=== PATIENT | female | born 1935 | race Caucasian/White ===

== ENCOUNTER 2017-08-31 07:02 | Inpatient (IN) ==
[2017-08-31] MEDS ORDERED: Morphine Sulfate Inj 8 MG/ML Vial IV.PUSH ONE (07:20)
--- NOTE | 2017-08-31 07:42 | ED ---
HPI General Chief complaint: Abdominal Pain Stated complaint: Abdominal Pain Time Seen by Provider: 08/31/17 07:16 History of Present Illness HPI narrative: Patient 82-year-old female presents emergency department for evaluation of abdominal pain and distention for the past week gradually worsening after she had surgery on her kidneys. According to our records she had a nephrostomy drain by interventional radiology on 08/26, she had been seen here for several months prior to that. Patient states the pain and distention have been gradually worsening since that surgery. She states she is also not had a bowel movement in several days. No blood in the stool, she states that her nephrostomy tube is not draining anymore. Related Data Home Medications Medication Instructions Recorded Confirmed alprazolam [Xanax] 0.25 mg PO QID 08/26/17 08/31/17 buspirone 15 mg PO BID 08/26/17 08/31/17 calcium carbonate [Calcium 600] 600 mg PO BID 08/26/17 08/31/17 cholecalciferol (vitamin D3) 2,000 unit PO DAILY 08/26/17 08/31/17 [Vitamin D3] cranberry extract 500 mg PO BID 08/26/17 08/31/17 cyanocobalamin-cobamamide [B12] 1,000 mg SUBLINGUAL DAILY 08/26/17 08/31/17 ferrous sulfate [iron] 65 mg PO DAILY 08/26/17 08/31/17 losartan 50 mg PO DAILY 08/26/17 08/31/17 lubiprostone [Amitiza] 8 mcg PO BID 08/26/17 08/31/17 metoprolol succinate 50 mg PO DAILY 08/26/17 08/31/17 mirabegron [Myrbetriq] 25 mg PO DAILY 08/26/17 08/31/17 omega 3-vpu-uxs-fish oil [[place]-3] 500 mg PO DAILY 08/26/17 08/31/17 omeprazole 40 mg PO DAILY 08/26/17 08/31/17 oxycodone 10 mg PO Q4-6H PRN 08/26/17 08/31/17 rivaroxaban [Xarelto] 20 mg PO DAILY 08/26/17 08/31/17 rosuvastatin 20 mg PO DAILY 08/26/17 08/31/17 Allergies Allergy/AdvReac Type Severity Reaction Status Date / Time aspirin Allergy Severe GI BLEED Verified 08/31/17 07:23 Review of Systems Except as stated in HPI: all other systems reviewed are negative [facility] Medical History Medical History Spinal stenosis (Acute) Benign breast lumps (Acute) Normal colonoscopy (Acute) Sleep apnea (Chronic) Chronic pain (Acute) Osteoporosis (Acute) Arthritis (Acute) Anxiety (Acute) Decreased vision (Acute) History of frequent urinary tract infections (Acute) GERD (gastroesophageal reflux disease) (Acute) Inguinal hernia (Acute) Obstructive sleep apnea on CPAP (Acute) Hypertension (Chronic) Atrial fibrillation (Chronic) History of blood product transfusion (Acute) High cholesterol (Acute) Benign familial tremor (Acute) Degenerative disc disease (Acute) Surgical History Surgical History S/P ablation of atrial fibrillation (Acute) History of total right knee replacement (TKR) (Acute) Lens replaced (Acute) History of hemorrhoidectomy (Acute) Shoulder joint replacement status (Acute) History of back surgery (Acute) Social History Social History Substance History: No History of Abuse Second Hand Smoke Exposure: No Smoking Status: Never smoker How Often Do You Have a Drink Containing Alcohol: Monthly or less Recent Travel in [facility] within the Last 8 Weeks: No Recent Out of Country Travel within the Last 8 Weeks: No Immunization History Tetanus Immunization: <5 Years Hx Influenza Vaccine This Season: Yes Exam Narrative Exam Narrative: GENERAL: Well-developed well-nourished, appears very uncomfortable. SKIN: Focused skin assessment warm/dry. HEAD: Atraumatic. Normocephalic. EYES: Pupils equal and round. No scleral icterus. No injection or drainage. ENT: No nasal bleeding or discharge. Mucous membranes pink and moist. NECK: Trachea midline. No JVD. CARDIOVASCULAR: Regular rate and rhythm. No murmur appreciated. RESPIRATORY: No accessory muscle use. Clear to auscultation. Breath sounds equal bilaterally. GASTROINTESTINAL: Right-sided nephrostomy tube site is clean dry and intact, minimal bloody drainage, abdomen is significantly distended consistent with a third trimester . Tympanic to percussion, decreased bowel sounds. MUSCULOSKELETAL: No obvious deformities. No clubbing. No cyanosis. No edema. NEUROLOGICAL: Awake and alert. No obvious cranial nerve deficits. Motor grossly within normal limits. Normal speech. PSYCHIATRIC: Appropriate mood and affect; insight and judgment normal. Course Initial Documented Vital Signs Temperature 98.2 F 08/31/17 07:18 Pulse Rate 103 H 08/31/17 07:18 Respiratory Rate 18 08/31/17 07:18 Blood Pressure 190/102 H 08/31/17 07:18 Pulse Oximetry 98 08/31/17 07:18 Last Documented Vital Signs Temperature 98.2 F 08/31/17 07:24 Pulse Rate 100 H 08/31/17 16:00 Respiratory Rate 18 08/31/17 16:00 Blood Pressure 158/84 H 08/31/17 16:00 Pulse Oximetry 100 08/31/17 16:00 Critical Care Time Critical Care Time: Yes Total Critical Care Time: 35 Attestation: Aggregate critical care time was 35 minutes. Time to perform other separately billable procedures was not included in the critical care time. My time did not include minutes spent treating any other patients simultaneously or on activities that did not directly contribute to the patient's treatment. The services I provided to this patient were to treat and/or prevent clinically significant deterioration that could result in: , disability, organ failure I provided critical care services requiring my management, as noted below: Chart data review, documentation time, medication orders and management, vital sign assessments/reviewing monitor data, ordering and reviewing lab tests, ordering and interpreting/reviewing x-rays and diagnostic studies, care of the patient and discussion of the patient with the admitting physicians. Medical Decision Making MDM Narrative Medical decision making narrative: Patient room to the emergency department, appears fairly uncomfortable and ill. CT scans concerning for intrarenal hematoma probably related the procedure and Xarelto use, there is also what appears to be an ileus, there is no stool in the rectum, trace occult positive but no gross blood and no gross melena. Patient was given morphine 6 mg IV, Dilaudid 0.5 mg IV. The patient was discussed at length with Dr. Jeffers is regarding her CAT scan results, we think that the bleeding is fairly well controlled at this point as it is in an encapsulated organ however the patient does have some blood output from the urostomy which is minimal. A Villa catheter was inserted and shows only blood-tinged urine, NG was inserted which had almost a liter of clear fluid output. Dr. Jeffers I had an extensive conversation about the possibility of interventional radiology procedure to embolize the hematoma but given the patient is hypertensive we think it might be better to Allow the patient to be without Xarelto for a day or 2 prior to her procedure and close observation and trending of her H&H is rather than rushing off to her procedure while she is anticoagulated. First this was discussed with Dr. Lincoln and I have asked for his input from the intensive care standpoint and after examining the patient has agreed the patient is stable for the floor. She does meet SIRS criteria and possible urinary tract infection or postoperative infection the patient was given a dose of Zosyn. Patient was ultimately discussed with Dr. Dwain murillo and will be admitted to Dr. Rasmussen. Differential Diagnosis Differential Diagnosis: Nephrostomy tube malfunction, uro-peritoneum, hemoperitoneum, obstruction, ileus Lab Data Result diagrams: 08/31/17 18:06 08/31/17 07:31 Lab Results 08/31/17 08/31/17 08/31/17 Range/Units 07:31 07:31 07:31 WBC 11.8 H (4.0-11.0) th/mm3 RBC 3.12 L (4.00-5.30) mil/mm3 Hgb 10.0 L (11.6-15.3) gm/dL Hct 29.1 L (35.0-46.0) % MCV 93.3 (80.0-100.0) fL MCH 32.2 (27.0-34.0) pg MCHC 34.5 (32.0-36.0) % RDW 14.8 (11.6-17.2) % Plt Count 181 (150-450) th/mm3 MPV 9.4 (7.0-11.0) fL Neut % (Auto) 91.7 H (16.0-70.0) % Lymph % (Auto) 3.5 L (9.0-44.0) % [place] % (Auto) 4.7 (0.0-8.0) % Eos % (Auto) 0.0 (0.0-4.0) % Baso % (Auto) 0.1 (0.0-2.0) % Neut # (Auto) 10.8 H (1.8-7.7) th/mm3 Lymph # (Auto) 0.4 L (1.0-4.8) th/mm3 [place] # (Auto) 0.6 (0.0-0.9) th/mm3 Eos # (Auto) 0.0 (0.0-0.4) th/mm3 Baso # (Auto) 0.0 (0.0-0.2) th/mm3 WBC Differential . Differential Comment Auto diff final Sodium 130 L (136-145) meq/L Potassium 4.0 (3.5-5.1) meq/L Chloride 97 L (98-107) meq/L Carbon Dioxide 21.6 (21.0-32.0) meq/L Anion Gap 11 (5-15) meq/L BUN 14 (7-18) mg/dL Creatinine 1.13 H (0.50-1.00) mg/dL Estimated GFR 46 L (>89) mL/min Random Glucose 171 H (74-106) mg/dL Lactic Acid 1.3 (0.4-2.0) mmol/L Calcium 8.7 (8.5-10.1) mg/dL Total Bilirubin 0.5 (0.2-1.0) mg/dL AST 15 (15-37) U/L ALT 19 (10-53) U/L Alkaline Phosphatase 69 (45-117) U/L Total Protein 8.0 (6.4-8.2) g/dL Albumin 4.0 (3.4-5.0) g/dL Lipase 52 L (73-393) U/L Urine Color (Yellw/Straw) Urine Clarity (Clear) Urine pH (5.0-8.5) Ur Specific [place] (1.002-1.035) Urine Protein (Neg-Trace) mg/dL Urine Glucose (UA) (Negative) mg/dL Urine Ketones (Negative) mg/dL Urine Occult Blood (Negative) Urine Nitrate (Negative) Urine Bilirubin (Negative) Urine Urobilinogen (Less than 2) mg/dL Ur Leukocyte Esterase (Negative) Urine RBC (0-3) /hpf Urine WBC (0-5) /hpf Ur Squamous Epith Cells (0-5) /hpf Micro UA Comment Urine Culture Comments Blood Type Antibody Screen MTS Gel Crossmatch 08/31/17 08/31/17 08/31/17 Range/Units 09:33 10:10 10:56 WBC (4.0-11.0) th/mm3 RBC (4.00-5.30) mil/mm3 Hgb (11.6-15.3) gm/dL Hct (35.0-46.0) % MCV (80.0-100.0) fL MCH (27.0-34.0) pg MCHC (32.0-36.0) % RDW (11.6-17.2) % Plt Count (150-450) th/mm3 MPV (7.0-11.0) fL Neut % (Auto) (16.0-70.0) % Lymph % (Auto) (9.0-44.0) % [place] % (Auto) (0.0-8.0) % Eos % (Auto) (0.0-4.0) % Baso % (Auto) (0.0-2.0) % Neut # (Auto) (1.8-7.7) th/mm3 Lymph # (Auto) (1.0-4.8) th/mm3 [place] # (Auto) (0.0-0.9) th/mm3 Eos # (Auto) (0.0-0.4) th/mm3 Baso # (Auto) (0.0-0.2) th/mm3 WBC Differential Differential Comment Sodium (136-145) meq/L Potassium (3.5-5.1) meq/L Chloride (98-107) meq/L Carbon Dioxide (21.0-32.0) meq/L Anion Gap (5-15) meq/L BUN (7-18) mg/dL Creatinine (0.50-1.00) mg/dL Estimated GFR (>89) mL/min Random Glucose (74-106) mg/dL Lactic Acid (0.4-2.0) mmol/L Calcium (8.5-10.1) mg/dL Total Bilirubin (0.2-1.0) mg/dL AST (15-37) U/L ALT (10-53) U/L Alkaline Phosphatase (45-117) U/L Total Protein (6.4-8.2) g/dL Albumin (3.4-5.0) g/dL Lipase (73-393) U/L Urine Color Colorless (Yellw/Straw) Urine Clarity Clear (Clear) Urine pH 7.0 (5.0-8.5) Ur Specific [place] 1.016 (1.002-1.035) Urine Protein Negative (Neg-Trace) mg/dL Urine Glucose (UA) 50 (Negative) mg/dL Urine Ketones Negative (Negative) mg/dL Urine Occult Blood Large H (Negative) Urine Nitrate Negative (Negative) Urine Bilirubin Negative (Negative) Urine Urobilinogen Less than 2 (Less than 2) mg/dL Ur Leukocyte Esterase Negative (Negative) Urine RBC 78 H (0-3) /hpf Urine WBC 7 H (0-5) /hpf Ur Squamous Epith Cells <1 (0-5) /hpf Micro UA Comment Culture not ind Urine Culture Comments Culture not ind Blood Type A Positive Antibody Screen Negative MTS Gel Crossmatch See Detail 08/31/17 Range/Units 18:06 WBC (4.0-11.0) th/mm3 RBC (4.00-5.30) mil/mm3 Hgb 10.4 L (11.6-15.3) gm/dL Hct 30.7 L (35.0-46.0) % MCV (80.0-100.0) fL MCH (27.0-34.0) pg MCHC (32.0-36.0) % RDW (11.6-17.2) % Plt Count (150-450) th/mm3 MPV (7.0-11.0) fL Neut % (Auto) (16.0-70.0) % Lymph % (Auto) (9.0-44.0) % [place] % (Auto) (0.0-8.0) % Eos % (Auto) (0.0-4.0) % Baso % (Auto) (0.0-2.0) % Neut # (Auto) (1.8-7.7) th/mm3 Lymph # (Auto) (1.0-4.8) th/mm3 [place] # (Auto) (0.0-0.9) th/mm3 Eos # (Auto) (0.0-0.4) th/mm3 Baso # (Auto) (0.0-0.2) th/mm3 WBC Differential Differential Comment Sodium (136-145) meq/L Potassium (3.5-5.1) meq/L Chloride (98-107) meq/L Carbon Dioxide (21.0-32.0) meq/L Anion Gap (5-15) meq/L BUN (7-18) mg/dL Creatinine (0.50-1.00) mg/dL Estimated GFR (>89) mL/min Random Glucose (74-106) mg/dL Lactic Acid (0.4-2.0) mmol/L Calcium (8.5-10.1) mg/dL Total Bilirubin (0.2-1.0) mg/dL AST (15-37) U/L ALT (10-53) U/L Alkaline Phosphatase (45-117) U/L Total Protein (6.4-8.2) g/dL Albumin (3.4-5.0) g/dL Lipase (73-393) U/L Urine Color ([place]ell[place]/Straw) Urine Clarity (Clear) Urine pH (5.0-8.5) Ur Specific [place] (1.002-1.035) Urine Protein (Neg-Trace) mg/dL Urine Glucose (UA) (Negative) mg/dL Urine Ketones (Negative) mg/dL Urine Occult Blood (Negative) Urine Nitrate (Negative) Urine Bilirubin (Negative) Urine Urobilinogen (Less than 2) mg/dL Ur Leukocyte Esterase (Negative) Urine RBC (0-3) /hpf Urine WBC (0-5) /hpf Ur Squamous Epith Cells (0-5) /hpf Micro UA Comment Urine Culture Comments Blood Type Antibody Screen MTS Gel Crossmatch Imaging Data Radiologist's impression: Abdomen/Pelvis CT 08/31/17 07:20 CONCLUSION: 1. 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 2. There is nephrostomy tip is in the right LX towards the anterior portion. 3. Stable left adrenal adenoma. 4. Significant dilatation of the common bile duct and mild biliary ductal dilatation left hepatic lobe present on the prior study from 2014, however, bile duct is more dilated since that time. Etiology is not evident. Discharge Plan Discharge Disposition Patient Disposition: 30 Still Patient Discharge Condition Condition: Fair Discharge Details Diagnosis: Adynamic ileus, SIRS (systemic inflammatory response syndrome) Physicians Team ED Provider: Efe Uribe Primary Care Provider: Sukhwinder Kruger Attending Provider: Elen Rasmussen Other Providers: Martin Minaya Status ED Status: Left Department Discharge Information Discharge Date/Time: 08/31/17 19:39
[2017-08-31 07:54] LABS: Baso % (Auto) 0.1 % (0.0-2.0); Hematocrit 29.1 % (35.0-46.0); Lymph # (Auto) 0.4 th/mm3 (1.0-4.8); Lymph % (Auto) 3.5 % (9.0-44.0); Mean Corpuscular HGB Conc 34.5 % (32.0-36.0); Mean Corpuscular Hemoglobin 32.2 pg (27.0-34.0); Mean Corpuscular Volume 93.3 fL (80.0-100.0); Mean Platelet Volume 9.4 fL (7.0-11.0); Mono # (Auto) 0.6 th/mm3 (0.0-0.9); Mono % (Auto) 4.7 % (0.0-8.0); Neut # (Auto) 10.8 th/mm3 (1.8-7.7); Neut % (Auto) 91.7 % (16.0-70.0); Platelet Count 181 th/mm3 (150-450); Red Blood Count 3.12 mil/mm3 (4.00-5.30); Red Cell Distribution Width 14.8 % (11.6-17.2); White Blood Count 11.8 th/mm3 (4.0-11.0)
[2017-08-31 08:18] LABS: Anion Gap 11 meq/L (5-15); Aspartate Aminotransferase 15 U/L (15-37); Blood Urea Nitrogen 14 mg/dL (7-18); Calcium 8.7 mg/dL (8.5-10.1); Carbon Dioxide 21.6 meq/L (21.0-32.0); Chloride 97 meq/L (98-107); Glomerular Filtration Rate 46 mL/min (>89); Glucose,Random 171 mg/dL (74-106); Lipase 52 U/L (73-393); Sodium 130 meq/L (136-145)
[2017-08-31 08:20] LABS: Alanine Aminotransferase 19 U/L (10-53)
[2017-08-31 08:22] LABS: Alkaline Phosphatase 69 U/L (45-117)
--- NOTE | 2017-08-31 09:24 | CT ---
EXAM DATE: 08/31/2017 9:01 AM EDT AGE/SEX: 82 years / Female INDICATIONS: Right sided abdominal pain. CLINICAL DATA: This is the patient's initial encounter. Patient reports that signs and symptoms have been present for 1 week and indicates a pain score of 8/10. MEDICAL/SURGICAL HISTORY: Cardiovascular disease. Gastroesophageal reflux disease. Hypertensi on. Hemorrhoidectomy. Hernia repair Right nephrostomy tube 08/26 ORAL CONTRAST: No oral contrast ingested. RADIATION DOSE: 8.30 CTDI (mGy) COMPARISON: No prior exams available for comparison. TECHNIQUE: Multiple contiguous axial images were obtained through the abdomen and pelvis following b olus infusion of 94 ml Omnipaque 350 (iohexol) nonionic water-soluble contrast as a single exam dos e. No oral contrast ingested. Using automated exposure control and adjustment of the mA and/or kV ac cording to patient size, radiation dose was kept as low as reasonably achievable to obtain optimal di agnostic quality images. DICOM format image data is available electronically for review and comparis on. FINDINGS: Abdomen CT: The liver, spleen, pancreas, left kidney, right adrenal are unremarkable. There is significant hydron ephrotic sac in the right kidney enlarged since the prior exam from 08/26/2017 and demonstrates high d ensity blood within it. Percutaneous nephrostomy has been placed in the interim with tip in the anter ior portion of the right renal calyx superior pole. There is dilatation of the left hepatic biliary s ystem not significantly changed since 2014, however, bile duct measures 1.8 cm it measured 1 cm on e study from 2014. The exact etiology for this is not evident based on this examination. Approximate 2.7 cm left adrenal mass is present and probably an adenoma present on the prior study from 2014 at [facility] time it measured 2.6 cm not significantly changed. There is slight dilatation of loops of large bowel particularly transverse colon measures 6.4 cm due to some degree of colonic ileus. There is mod erate amount of stool throughout the colon. There is no evidence for any appreciable pathological opal nopathy, free fluid, or bowel obstruction. Slight scarring and/or atelectasis is seen in the lingula and left lower lobe. Pelvic CT: There is no evidence for mass, abscess formation, or any significant adenopathy within the pelvis. CONCLUSION: 1. Worsening hydronephrotic sac in the right kidney with significant dilatation of the right renal p hillary and hemorrhage within it since the prior study from 08/26/2017. 2. There is nephrostomy tip is in the right LX towards the anterior portion. 3. Stable left adrenal adenoma. 4. Significant dilatation of the common bile duct and mild biliary ductal dilatation left hepatic lo be present on the prior study from 2014, however, bile duct is more dilated since that time. Etiology is not evident. Electronically signed by: Dina Torres MD 08/31/2017 9:23 AM EDT
[2017-08-31] MEDS ORDERED: HYDROmorphone PF Inj 2 MG/ML Vial IV.PUSH ONE (09:34)
[2017-08-31 11:32] LABS: Bilirubin,Urine Negative (Negative); Clarity,Urine Clear (Clear); Color,Urine Colorless (Yellw/Straw); Glucose,Urine (UA) 50 mg/dL (Negative); Leukocyte Esterase,Urine Negative (Negative); Nitrite,Urine Negative (Negative); Specific Gravity,Urine 1.016 (1.002-1.035); Squamous Epithelial Cell,Urine <1 /hpf (0-5)
--- NOTE | 2017-08-31 11:45 | P.CONCC ---
History of Present Illness Service: Critical Care Medicine Consult date: 08/31/17 Requesting Physician: Efe Uribe Reason for Consult: evaluation of patient's clinical status Primary Care Provider: Sukhwinder Kruger MD Family Provider: Sukhwinder Kruger MD Chief Complaint: abdominal pain History of Present Illness: I was called by the ER physician to evaluate a patient for necessity for ICU services. briefly, this is an 82yF who was seen on 08/26 for hydronephrosis and is now s/p right perc nephrostomy tube by IR. she represents with a few day history of nausea and abdominal pain. CT scan is significant for a fluid collection in the right renal collecting system which the ER physician and IR hypothesize could be a hematoma. This does appear to cause a local inflammatory response and evidence of a significant non-obstructive ileus. patient denied bloody emesis, chest pain, sob, or other symptoms. hemodynamically stable on room air. At my request, NGT was placed and 500cc clear/light-brown fluid was removed. Repeat abdominal exam after NGT decompression demonstrates much improved abdominal distension and soft abdomen. patient reports mild improvements in fullness. ROS otherwise negative. 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 - Medical History Medical History: Medical History (Last Reviewed 08/31/17 @ 07:21 by Brooke Ricci) Spinal stenosis (Acute) Benign breast lumps (Acute) Normal colonoscopy (Acute) Sleep apnea (Acute) Chronic pain (Acute) Osteoporosis (Acute) Arthritis (Acute) Anxiety (Acute) Decreased vision (Acute) History of frequent urinary tract infections (Acute) GERD (gastroesophageal reflux disease) (Acute) Inguinal hernia (Acute) Obstructive sleep apnea on CPAP (Acute) Hypertension (Acute) Atrial fibrillation (Acute) History of blood product transfusion (Acute) High cholesterol (Acute) - Surgical History Surgical History: Surgical History (Last Reviewed 08/31/17 @ 07:21 by Brooke Ricci) S/P ablation of atrial fibrillation (Acute) History of total right knee replacement (TKR) (Acute) Lens replaced (Acute) History of hemorrhoidectomy (Acute) Shoulder joint replacement status (Acute) History of back surgery (Acute) - Tobacco History Second Hand Smoke Exposure: No Tobacco Use In Past 30 Days: No Smoking Status: Never smoker - Alcohol History How Often Do You Have a Drink Containing Alcohol: Monthly or less - Substance Use History Substance History: No History of Abuse - Travel History Recent Travel in the [place] Within the Last 8 Weeks: No Recent Travel Out of the Country Within the Last 8 Weeks: No - Immunization History Tetanus Immunization: <5 Years Hx Influenza Vaccine This Season: Yes Medications and Allergies Active Medications: Active Medications Sodium Chloride (Ns Flush) 2 ml IV.FLUSH PRN PRN PRN Reason: FLUSH AFTER USING IV ACCESS Allergies Allergy/AdvReac Type Severity Reaction Status Date / Time aspirin Allergy Severe GI BLEED Verified 08/31/17 07:23 Home Medications Medication Instructions Recorded Confirmed Type alprazolam [Xanax] 0.25 mg PO QID 08/26/17 08/31/17 History buspirone 15 mg PO BID 08/26/17 08/31/17 History calcium carbonate [Calcium 600] 600 mg PO BID 08/26/17 08/31/17 History cholecalciferol (vitamin D3) 2,000 unit PO DAILY 08/26/17 08/31/17 History [Vitamin D3] cranberry extract 500 mg PO BID 08/26/17 08/31/17 History cyanocobalamin-cobamamide [B12] 1,000 mg SUBLINGUAL DAILY 08/26/17 08/31/17 History ferrous sulfate [iron] 65 mg PO DAILY 08/26/17 08/31/17 History losartan 50 mg PO DAILY 08/26/17 08/31/17 History lubiprostone [Amitiza] 8 mcg PO BID 08/26/17 08/31/17 History metoprolol succinate 50 mg PO DAILY 08/26/17 08/31/17 History mirabegron [Myrbetriq] 25 mg PO DAILY 08/26/17 08/31/17 History omega 9-eab-azv-fish oil [[place]-3] 500 mg PO DAILY 08/26/17 08/31/17 History omeprazole 40 mg PO DAILY 08/26/17 08/31/17 History oxycodone 10 mg PO Q4-6H PRN 08/26/17 08/31/17 History rivaroxaban [Xarelto] 20 mg PO DAILY 08/26/17 08/31/17 History rosuvastatin 20 mg PO DAILY 08/26/17 08/31/17 History Physical Exam Vital signs: Vital Signs 08/31/17 07:18 08/31/17 07:24 08/31/17 07:27 Temperature 36.8 C 36.8 C Pulse Rate 103 H 103 H Respiratory Rate 18 18 Blood Pressure 190/102 H 190/102 H Pulse Oximetry 98 96 96 08/31/17 11:00 Temperature Pulse Rate 112 H Respiratory Rate 18 Blood Pressure 162/87 H Pulse Oximetry 99 Intake & Output 08/30/17 08/31/17 08/31/17 18:59 06:59 18:59 Weight 86.183 kg Narrative: gen: elderly female, lying in bed, in no acute distress. heent: nc. at. perrl. mmm. neck: no jvd. trachea midline. chest: unlabored. on room air. cv: normal rate, regular rhythm. sinus. abd: soft, initially severely distended and now mild-moderately distended. mild tenderness to palpation diffusely. no guarding or rebound. extr: 1+ pitting edema of the lower extremities. distal pulses 2+. extremities are warm and well-perfused back: right nephrostomy tube in place with minimal urosanguinous output. : benítez in place with mostly yellow and only slightly blood tinged urine. neuro: RASS 0. GCS 15. follows commands. no focal deficits. - Urinary Catheter Management Indwelling Urethral Catheter Cath placed during this visit: yes Reason for continuing: Acute urinary retention Insertion date: 08/31/17 Insertion time: 11:00 Assessment and Plan - Assessment and Plan Plan: Assessment: 82yF with right-sided hydronephrosis and now with abdominal pain most likely secondary to acute non-obstructive ileus and right nephric hematoma. Active Problems: Non-obstructive Ileus Abdominal Distension Abdominal pain Right renal hematoma Right hydronephrosis Recommendations: - does not meet ICU criteria at this time. no hemodynamic instability. no respiratory compromise with ileus. abdominal distension improving with NGT decompression. - agree with managing conservatively. - management and possible drainage of hematoma per IR. - NGT decompression - would manage ileus conservatively as I do not think it will resolve until underlying renal pathology is resolved. - recommend ivf as patient may become dehydrated given ileus and NGT output. - agree with iv pain meds - agree with NPO status. would recommend admission to telemetry monitored floor bed under hospitalist services. Please re-consult critical care medicine as needed. we will sign off at this time. Discussed Condition With: Dr. Uribe
[2017-08-31] MEDS ORDERED: Piperacil/Tazo 4.5 GM Premix 4.5 GM/100 ML BAG IV.SIG ONE (11:58)
--- NOTE | 2017-08-31 12:38 | P.HPFP ---
History of Present Illness Primary Care Physician: Sukhwinder Kruger MD Chief Complaint: abdominal pain History of Present Illness: Patient is a 82-year-old female with past medical history of A. 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 Patient reports that pain has been constant since urology procedure however is gotten progressively worse. She describes pain as sharp initially reading 10/10, currently 9/10. She took oxycodone without any significant relief. Patient also reports worsening of hematuria from nephrostomy bag, blood became darker in color although no blood clots were noted in the urine. Patient reports that last bowel movement was 4 days ago. Endorses chills, nausea, dizziness, increase urinary frequency and weakness. Denies fever, dysuria, foul smelling urine, SOB, CP, palpitations, vomiting, blood in stool. At baseline patient ambulates with a cane. Patient was scheduled to follow-up with her urologist today for reevaluation of nephrostomy tube placement because she was told the procedure was not successful. - Diagnosis (1) Ureteral obstruction, right (2) Anemia (3) Ileus (4) Atrial fibrillation (5) Hypertension (6) Sleep apnea (7) Arthritis (8) Anxiety (9) GERD (gastroesophageal reflux disease) (10) Nutrition, metabolism, and development symptoms Inpatient Certification: I certify that the inpatient services were ordered in accordance with Medicare regulations governing the order. This includes certification that hospital inpatient services are reasonable and necessary and in the case of services not specified as inpatient-only under 42 CFR 419.22(n), that they are appropriately provided as inpatient services in accordance to with the 2-midnight benchmark under 43 CFR 412.3(e) Review of Systems Constitutional: Reports chills, Reports fatigue, Reports weakness, Reports weight loss (not sure, poor appetite due nausea -- Nausea since after the surgery), Denies fever(s), Denies night sweats Eyes: Denies blurry vision, Denies change in vision Ears, Nose, Mouth, and Throat: Reports dizziness Cardiovascular: Denies chest pain, Denies fainting, Denies rapid, pounding, or irregular heartbeat Respiratory: Denies cough, Denies shortness of breath Gastrointestinal: Reports abdominal pain, Reports constipation, Denies black, tarry stools, Denies bright, red blood in stools Comments: increased frequency no foul odor no dysuria Musculoskeletal: Reports joint pain (chronic) Comments: bruising in arms due to xerelto 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, 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 - Medical History Medical History: Medical History (Last Updated 08/31/17 @ 14:13 by Karli Guevara MD, R1) Spinal stenosis (Acute) Benign breast lumps (Acute) Normal colonoscopy (Acute) Sleep apnea (Chronic) Chronic pain (Acute) Osteoporosis (Acute) Arthritis (Acute) Anxiety (Acute) Decreased vision (Acute) History of frequent urinary tract infections (Acute) GERD (gastroesophageal reflux disease) (Acute) Inguinal hernia (Acute) Obstructive sleep apnea on CPAP (Acute) Hypertension (Chronic) Atrial fibrillation (Chronic) History of blood product transfusion (Acute) High cholesterol (Acute) Benign familial tremor Degenerative disc disease - Surgical History Surgical History: Surgical History (Last Updated 08/31/17 @ 14:13 by Karli Guevara MD, R1) S/P ablation of atrial fibrillation (Acute) History of total right knee replacement (TKR) (Acute) Lens replaced (Acute) History of hemorrhoidectomy (Acute) Shoulder joint replacement status (Acute) History of back surgery (Acute) - Tobacco History Second Hand Smoke Exposure: No Tobacco Use In Past 30 Days: No Smoking Status: Never smoker - Alcohol History How Often Do You Have a Drink Containing Alcohol: Monthly or less - Substance Use History Substance History: No History of Abuse - Travel History Recent Travel in the [place] Within the Last 8 Weeks: No Recent Travel Out of the Country Within the Last 8 Weeks: No - Immunization History Tetanus Immunization: <5 Years Hx Influenza Vaccine This Season: Yes Medications and Allergies Active Medications: Active Medications Piperacillin/Tazobactam/Dextrose (Zosyn 4.5 Gm Premix) 4.5 gm in 100 mls @ 200 mls/hr IV.SIG ONCE ONE Stop: 08/31/17 12:27 Sodium Chloride (Ns Flush) 2 ml IV.FLUSH PRN PRN PRN Reason: FLUSH AFTER USING IV ACCESS Allergies Allergy/AdvReac Type Severity Reaction Status Date / Time aspirin Allergy Severe GI BLEED Verified 08/31/17 07:23 Home Medications Medication Instructions Recorded Confirmed Type alprazolam [Xanax] 0.25 mg PO QID 08/26/17 08/31/17 History buspirone 15 mg PO BID 08/26/17 08/31/17 History calcium carbonate [Calcium 600] 600 mg PO BID 08/26/17 08/31/17 History cholecalciferol (vitamin D3) 2,000 unit PO DAILY 08/26/17 08/31/17 History [Vitamin D3] cranberry extract 500 mg PO BID 08/26/17 08/31/17 History cyanocobalamin-cobamamide [B12] 1,000 mg SUBLINGUAL DAILY 08/26/17 08/31/17 History ferrous sulfate [iron] 65 mg PO DAILY 08/26/17 08/31/17 History losartan 50 mg PO DAILY 08/26/17 08/31/17 History lubiprostone [Amitiza] 8 mcg PO BID 08/26/17 08/31/17 History metoprolol succinate 50 mg PO DAILY 08/26/17 08/31/17 History mirabegron [Myrbetriq] 25 mg PO DAILY 08/26/17 08/31/17 History omega 2-nqj-dup-fish oil [[place]-3] 500 mg PO DAILY 08/26/17 08/31/17 History omeprazole 40 mg PO DAILY 08/26/17 08/31/17 History oxycodone 10 mg PO Q4-6H PRN 08/26/17 08/31/17 History rivaroxaban [Xarelto] 20 mg PO DAILY 08/26/17 08/31/17 History rosuvastatin 20 mg PO DAILY 08/26/17 08/31/17 History Exam Vital signs: Vital Signs 08/31/17 07:18 08/31/17 07:24 08/31/17 07:27 Temperature 98.2 F 98.2 F Pulse Rate 103 H 103 H Respiratory Rate 18 18 Blood Pressure 190/102 H 190/102 H Pulse Oximetry 98 96 96 08/31/17 11:00 Temperature Pulse Rate 112 H Respiratory Rate 18 Blood Pressure 162/87 H Pulse Oximetry 99 Intake & Output 08/30/17 08/31/17 08/31/17 18:59 06:59 18:59 Weight 86.183 kg - Constitutional mild distress, average body habitus - Routine HEENT Exam Head: Present: normocephalic, atraumatic Eye: Present: EOMI, PERRL - Routine Neck Exam Present: supple, full ROM. Absent: JVD - Routine Chest/Breast/Axilla Exam Chest wall: Absent: tenderness - Routine Respiratory Exam Present: CTA bilaterally. Absent: accessory muscle use - Routine Cardiovascular Exam Present: RRR, S1, S2, tachycardia. Absent: murmur, gallop, rubs - Routine Abdominal Exam Present: tenderness (tenderness to palpation on RUQ and RLQ), distended. Absent : rebound, guarding - Routine Extremities Exam Present: edema (+2 LE edema BL), pulses intact, calf tenderness (mild calf tenderness Bl, Chronic issues). Absent: cyanosis - Routine Skin Exam Present: intact - Routine Neurological Exam Present: alert, oriented X3, CN II-XII intact Results - Labs Result diagrams: 08/31/17 07:31 08/31/17 07:31 Abnormal lab results 08/31/17 08/31/17 08/31/17 Range/Units 07:31 07:31 09:33 WBC 11.8 H (4.0-11.0) th/mm3 RBC 3.12 L (4.00-5.30) mil/mm3 Hgb 10.0 L (11.6-15.3) gm/dL Hct 29.1 L (35.0-46.0) % Neut % (Auto) 91.7 H (16.0-70.0) % Lymph % (Auto) 3.5 L (9.0-44.0) % Neut # (Auto) 10.8 H (1.8-7.7) th/mm3 Lymph # (Auto) 0.4 L (1.0-4.8) th/mm3 Sodium 130 L (136-145) meq/L Chloride 97 L (98-107) meq/L Creatinine 1.13 H (0.50-1.00) mg/dL Estimated GFR 46 L (>89) mL/min Random Glucose 171 H (74-106) mg/dL Lipase 52 L (73-393) U/L Urine Occult Blood (Negative) Urine RBC (0-3) /hpf Urine WBC (0-5) /hpf MTS Gel Crossmatch See Detail 08/31/17 Range/Units 10:56 WBC (4.0-11.0) th/mm3 RBC (4.00-5.30) mil/mm3 Hgb (11.6-15.3) gm/dL Hct (35.0-46.0) % Neut % (Auto) (16.0-70.0) % Lymph % (Auto) (9.0-44.0) % Neut # (Auto) (1.8-7.7) th/mm3 Lymph # (Auto) (1.0-4.8) th/mm3 Sodium (136-145) meq/L Chloride (98-107) meq/L Creatinine (0.50-1.00) mg/dL Estimated GFR (>89) mL/min Random Glucose (74-106) mg/dL Lipase (73-393) U/L Urine Occult Blood Large H (Negative) Urine RBC 78 H (0-3) /hpf Urine WBC 7 H (0-5) /hpf MTS Gel Crossmatch Short CBC 08/31/17 Range/Units 07:31 WBC 11.8 H (4.0-11.0) th/mm3 Hgb 10.0 L (11.6-15.3) gm/dL Hct 29.1 L (35.0-46.0) % Plt Count 181 (150-450) th/mm3 BMP 08/31/17 07:31 Sodium 130 L Potassium 4.0 Chloride 97 L Carbon Dioxide 21.6 BUN 14 Creatinine 1.13 H Calcium 8.7 Liver Function 08/31/17 Range/Units 07:31 Total Bilirubin 0.5 (0.2-1.0) mg/dL AST 15 (15-37) U/L ALT 19 (10-53) U/L Alkaline Phosphatase 69 (45-117) U/L Albumin 4.0 (3.4-5.0) g/dL Urine 08/31/17 Range/Units 10:56 Urine Color Colorless (Yellw/Straw) Urine Clarity Clear (Clear) Urine pH 7.0 (5.0-8.5) Ur Specific [place] 1.016 (1.002-1.035) Urine Protein Negative (Neg-Trace) mg/dL Urine Glucose (UA) 50 (Negative) mg/dL - Imaging Impressions Abdomen/Pelvis CT 08/31/17 07:20 CONCLUSION: 1. 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 2. There is nephrostomy tip is in the right LX towards the anterior portion. 3. Stable left adrenal adenoma. 4. Significant dilatation of the common bile duct and mild biliary ductal dilatation left hepatic lobe present on the prior study from 2014, however, bile duct is more dilated since that time. Etiology is not evident. Caprini VTE Risk Assessment Caprini VTE Risk Assessment: Moderate/High Risk (score >= 2) VTE Pharmacological Exception Reason: High risk for bleeding Caprini Risk Assessment Model: Point Value = 1 Point Value = 2 Point Value = 3 Point Value = 5 Age 41-60 Minor surgery BMI > 25 kg/m2 Swollen legs Varicose veins or History of unexplained or recurrent spontaneous Oral contraceptives or hormone replacement Sepsis (< 1 month) Serious lung disease, including pneumonia (< 1 month) Abnormal pulmonary function Acute myocardial infarction Congestive heart failure (< 1 month) History of inflammatory bowel disease Medical patient at bed rest Age 61-74 Arthroscopic surgery Major open surgery (> 45 min) Laparoscopic surgery (> 45 min) Malignancy Confined to bed (> 72 hours) Immobilizing plaster cast Central venous access Age >= 75 History of VTE Family history of VTE Factor V Leiden Prothrombin [id number] Lupus anticoagulant Anticardiolipin antibodies Elevated serum homocysteine Heparin-induced thrombocytopenia Other congenital or acquired thrombophilia Stroke (< 1 month) Elective arthroplasty Hip, pelvis, or leg fracture Acute spinal cord injury (< 1 month) Prophylaxis Regimen: Total Risk Factor Score Risk Level Prophylaxis Regimen 0-1 Low Early ambulation 2 Moderate Order ONE of the following: *Sequential Compression Device (SCD) *Heparin 5000 units SQ BID 3-4 Higher Order ONE of the following medications: *Heparin 5000 units SQ TID *Enoxaparin/Lovenox 40 mg SQ daily (WT < 150 kg, CrCl > 30 mL/min) *Enoxaparin/Lovenox 30 mg SQ daily (WT < 150 kg, CrCl > 10-29 mL/min) *Enoxaparin/Lovenox 30 mg SQ BID (WT < 150 kg, CrCl > 30 mL/min) AND/OR *Sequential Compression Device (SCD) 5 or more Highest Order ONE of the following medications: *Heparin 5000 units SQ TID (Preferred with Epidurals) *Enoxaparin/Lovenox 40 mg SQ daily (WT < 150 kg, CrCl > 30 mL/min) *Enoxaparin/Lovenox 30 mg SQ daily (WT < 150 kg, CrCl > 10-29 mL/min) *Enoxaparin/Lovenox 30 mg SQ BID (WT < 150 kg, CrCl > 30 mL/min) AND *Sequential Compression Device (SCD) Assessment and Plan - Assessment (1) Ureteral obstruction, right Code(s): N13.5 - Crossing vessel and stricture of ureter without hydronephrosis Status: Acute Plan: Patient with history of Right hydronephrosis of unknown origin with obstruction at UVJ. She underwent a right nephrostomy placement on 08/26/17 by IR. Patient follows with her urologist Dr. Minaya. She presented to the ED today with complaints of worsening right-sided abdominal and back pain associated with nausea and increased hematuria. Of note: Dr. 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 In the ED CT scan abdomen pelvis showed: Worsening hydronephrotic sac in the right kidney with significant dilation of the right renal pelvis and hemorrhage within it compared to prior study from 08/26/2017. Slight dilatation of loops of large bowel particularly transverse colon measures 6.4 cm due to some degree of colonic ileus. There is moderate amount of stool throughout the colon. Patient is tachycardic and with elevated BP 160s/80-90s H/H at 12/14 slightly decrease from pre-op H/H of 12.4/36.1 UA negative for infection however urine positive for blood Patient still c/o sharp Right sided abdominal pain, rating 9/10 NG tube suction for medical management of ileus NPO IVF Pain management: Percocet per pain scale, morphine for breakthrough pain PPI 40mg BID monitor I/Os Urology consulted, appreciate recommendations Follow-up: Serial abdominal x-ray serial H&H (2) Anemia Code(s): D64.9 - Anemia, unspecified Status: Acute Plan: H/H at 12/14 slightly decrease from pre-op H/H of 12.4/36.1 UA negative for infection however urine positive for blood occult stool positive, no gross blood per rectum c/w protonix 40mg IV BID trend H&H consider Gi consult if patient continues to drop H&H (3) Ileus Code(s): K56.7 - Ileus, unspecified Status: Acute Plan: CT a/p: Slight dilatation of loops of large bowel particularly transverse colon measures 6.4 cm due to some degree of colonic ileus. There is moderate amount of stool throughout the colon. NG tube on suction for decompression serial abdominal xray bowel constipation regimen (4) Atrial fibrillation Code(s): I48.91 - Unspecified atrial fibrillation Status: Chronic Plan: Patient with history atrial fibrillation on Xarelto 50 mg twice daily. On exam patient with regular rate and rhythm with slight tachycardia 110s Xarelto on hold due to risk of bleeding Patient placed on telemetry (5) Hypertension Code(s): I10 - Essential (primary) hypertension Status: Chronic Plan: Patient with blood pressure range 160s/80-90s Continue to monitor Resume blood pressure medication (6) Sleep apnea Code(s): G47.30 - Sleep apnea, unspecified Status: Chronic Plan: Patient with history of sleep apnea. She uses CPAP at night. c/w CPAP (7) Arthritis Code(s): M19.90 - Unspecified osteoarthritis, unspecified site Status: Acute Plan: Patient reports she uses oxycodone 10 before hours for her arthritic pain control. Patient currently on pain scale for abdominal pain (8) Anxiety Code(s): F41.9 - Anxiety disorder, unspecified Status: Acute Plan: Continue with home medications (9) GERD (gastroesophageal reflux disease) Code(s): K21.9 - Gastro-esophageal reflux disease without esophagitis Status: Acute Plan: Patient placed on Protonix 40 mg twice daily (10) Nutrition, metabolism, and development symptoms Code(s): R63.8 - Other symptoms and signs concerning food and fluid intake Status: Acute Plan: Fluids: 120mls/hr Electrolytes: Replete as needed Nutrition: N.p.o. DVT prophylaxis: SCDs
[2017-08-31] MEDS ORDERED: Bisacodyl 10 MG Supp RECTAL PRN (12:55)
[2017-08-31] MEDS ORDERED: Morphine Inj 4 MG/ML Vial IV.PUSH PRN (13:01)
[2017-08-31] MEDS ORDERED: Naloxone Inj 0.4 MG/ML Vial IV.PUSH PRN (13:01)
[2017-08-31] MEDS: Sod Chloride 0.9% Inj 1,000 ML IV.CONT SCH ×2 (14:06→22:01)
[2017-08-31] MEDS ORDERED: Morphine Sulfate Inj 2 MG/ML Vial IV.PUSH ONE (15:03)
[2017-08-31] MEDS: Morphine Inj 4 MG/ML Vial IV.PUSH PRN ×2 (17:25→21:56)
--- NOTE | 2017-08-31 17:41 | ECG ---
Date Performed: 08/31/2017 Time Performed: 08:01:03 PTAGE: 82 years EKG: SINUS TACHYCARDIA WITH OCCASIONAL SUPRAVENTRICULAR PREMATURE COMPLEXES NONSPECIFIC T-WAVE A BNORMALITY ABNORMAL RHYTHM ECG PREVIOUS TRACING : 02/02/2015 09.46 Since the previous tracing, no significant change noted DOCTOR: Tom Blackburn Interpretating Date/Time 08/31/2017 17:41:13
[2017-08-31 18:29] LABS: Hematocrit 30.7 % (35.0-46.0); Hemoglobin 10.4 gm/dL (11.6-15.3)
[2017-08-31] MEDS: Pantoprazole Inj 40 MG Vial IV.PUSH SCH (21:48)
[2017-09-01 00:32] LABS: Hematocrit 28.9 % (35.0-46.0)
[2017-09-01] MEDS: Morphine Inj 4 MG/ML Vial IV.PUSH PRN ×6 (01:56→22:11)
[2017-09-01] MEDS: Sod Chloride 0.9% Inj 1,000 ML IV.CONT SCH ×2 (06:29→13:18)
[2017-09-01] MEDS ORDERED: Bisacodyl 10 MG Supp RECTAL PRN (06:57)
[2017-09-01] MEDS ORDERED: Bisacodyl 10 MG Supp RECTAL ONE ×2 (07:30→18:00)
[2017-09-01 08:24] LABS: Baso % (Auto) 0.3 % (0.0-2.0); Hematocrit 29.2 % (35.0-46.0); Hemoglobin 9.8 gm/dL (11.6-15.3); Lymph # (Auto) 0.4 th/mm3 (1.0-4.8); Mean Corpuscular HGB Conc 33.6 % (32.0-36.0); Mean Corpuscular Hemoglobin 31.5 pg (27.0-34.0); Mean Corpuscular Volume 93.9 fL (80.0-100.0); Mono # (Auto) 1.1 th/mm3 (0.0-0.9); Neut # (Auto) 11.1 th/mm3 (1.8-7.7); Neut % (Auto) 87.7 % (16.0-70.0); Platelet Count 192 th/mm3 (150-450); Red Blood Count 3.11 mil/mm3 (4.00-5.30); White Blood Count 12.6 th/mm3 (4.0-11.0)
[2017-09-01 08:51] LABS: Alanine Aminotransferase 15 U/L (10-53); Albumin 3.3 g/dL (3.4-5.0); Alkaline Phosphatase 59 U/L (45-117); Anion Gap 11 meq/L (5-15); Aspartate Aminotransferase 11 U/L (15-37); Blood Urea Nitrogen 13 mg/dL (7-18); Calcium 8.3 mg/dL (8.5-10.1); Carbon Dioxide 23.2 meq/L (21.0-32.0); Chloride 99 meq/L (98-107); Glomerular Filtration Rate 48 mL/min (>89); Glucose,Random 128 mg/dL (74-106); Potassium 4.1 meq/L (3.5-5.1); Sodium 133 meq/L (136-145); Total Protein 7.3 g/dL (6.4-8.2)
[2017-09-01] MEDS ORDERED: OMEGA DHA EPA FISH OIL PO SCH (09:00)
--- NOTE | 2017-09-01 09:08 | XR ---
EXAM DATE: 09/01/2017 9:00 AM EDT AGE/SEX: 82 years / Female INDICATIONS: Abdominal distention. CLINICAL DATA: This is the patient's subsequent encounter. Patient reports that signs and symptoms h ave been present for 1 week and indicates a pain score of 8/10. MEDICAL/SURGICAL HISTORY: . Gastroesophageal reflux disease. Hypertension. . Inguinal hernia. Hemorrhoidectomy. Back surgery. Nephrostomy. COMPARISON: No prior exams available for comparison. FINDINGS: Drainage tube is again seen in the right of the abdomen and is extensive stool throughout the colon w ith dilatation of colon particularly ascending colon and transverse colon maximum diameter of 7 cm no t significantly changed since the prior CT examination from one day ago. There is no evidence for sma ll bowel obstruction or free air. NG tube is present with tip in the stomach. CONCLUSION: Slight dilatation of the colon and extensive stool not significantly changed. Electronically signed by: Dina Torres MD 09/01/2017 9:07 AM EDT
[2017-09-01] MEDS: Pantoprazole Inj 40 MG Vial IV.PUSH SCH ×2 (09:37→22:11)
[2017-09-01] MEDS: Ferrous Sulfate 325 MG Tablet PO SCH (09:38)
--- NOTE | 2017-09-01 10:59 | P.HPFP ---
History of Present Illness Primary Care Physician: Sukhwinder Kruger MD Chief Complaint: abdominal pain History of Present Illness: Ms Cantor is a 82-year-old female with past medical history of A. 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 Patient reports that pain has been constant since urology procedure however is has gotten progressively worse. She describes pain as sharp initially reaching 10/10. She took oxycodone without any significant relief. Patient also reports worsening of hematuria from nephrostomy bag, blood became darker in color although no blood clots were noted in the urine. Patient reports that last bowel movement was 4 days ago. Endorses chills, nausea, dizziness, increase urinary frequency and weakness. Denies fever, dysuria, foul smelling urine, SOB, CP, palpitations, vomiting, blood in stool. At baseline patient ambulates with a cane. Patient was scheduled to follow-up with her urologist for reevaluation of nephrostomy tube placement because she was told the procedure was not successful. On admission she was found to have both problems with her kidney as well as an ileus. This morning she has bile draining from her NG tube. She is still significant pain though she says that the IV morphine is helping her. - Diagnosis (1) Ureteral obstruction, right (2) Anemia (3) Ileus (4) Atrial fibrillation (5) Hypertension (6) Sleep apnea (7) Arthritis (8) Anxiety (9) GERD (gastroesophageal reflux disease) (10) Nutrition, metabolism, and development symptoms Inpatient Certification: I certify that the inpatient services were ordered in accordance with Medicare regulations governing the order. This includes certification that hospital inpatient services are reasonable and necessary and in the case of services not specified as inpatient-only under 42 CFR 419.22(n), that they are appropriately provided as inpatient services in accordance to with the 2-midnight benchmark under 43 CFR 412.3(e) Estimated Total Length of Stay (Days): 5 Plans for Post Hospital Care: Not yet determined Review of Systems See history and physical done yesterday. 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 - Medical History Medical History: Medical History (Last Updated 08/31/17 @ 14:13 by Karli Guevara MD, R2) Spinal stenosis (Acute) Benign breast lumps (Acute) Normal colonoscopy (Acute) Sleep apnea (Chronic) Chronic pain (Acute) Osteoporosis (Acute) Arthritis (Acute) Anxiety (Acute) Decreased vision (Acute) History of frequent urinary tract infections (Acute) GERD (gastroesophageal reflux disease) (Acute) Inguinal hernia (Acute) Obstructive sleep apnea on CPAP (Acute) Hypertension (Chronic) Atrial fibrillation (Chronic) History of blood product transfusion (Acute) High cholesterol (Acute) Benign familial tremor Degenerative disc disease - Surgical History Surgical History: Surgical History (Last Updated 08/31/17 @ 14:13 by Karli Guevara MD, R2) S/P ablation of atrial fibrillation (Acute) History of total right knee replacement (TKR) (Acute) Lens replaced (Acute) History of hemorrhoidectomy (Acute) Shoulder joint replacement status (Acute) History of back surgery (Acute) - Tobacco History Second Hand Smoke Exposure: No Tobacco Use In Past 30 Days: No Smoking Status: Never smoker - Alcohol History How Often Do You Have a Drink Containing Alcohol: Monthly or less - Substance Use History Substance History: No History of Abuse - Travel History Recent Travel in the [place] Within the Last 8 Weeks: No Recent Travel Out of the Country Within the Last 8 Weeks: No - Immunization History Tetanus Immunization: <5 Years Hx Influenza Vaccine This Season: Yes Medications and Allergies Active Medications: Active Medications Al Hydroxide/Mg Hydroxide (Milk Of Best [place]) 30 ml PO Q12H PRN PRN Reason: Mild Constipation Atorvastatin Calcium (Lipitor) 40 mg PO DAILY [facility] Last Admin: 09/01/17 09:40 Dose: 40 mg Bisacodyl (Dulcolax Supp) 10 mg RECTAL DAILY PRN PRN Reason: SEVERE CONSITIPATION Buspirone HCl (Buspar) 15 mg PO BID [facility] Last Admin: 09/01/17 09:37 Dose: 15 mg Clonidine HCl (Catapres) 0.1 mg PO Q6H PRN PRN Reason: SEE LABEL COMMENTS Cyanocobalamin (Vitamin B12) 1,000 mcg PO DAILY [facility] Last Admin: 09/01/17 09:41 Dose: 1,000 mcg Ferrous Sulfate (Ferosul) 325 mg PO DAILY [facility] Last Admin: 09/01/17 09:38 Dose: 325 mg Sodium Chloride (Ns Inj) 1,000 mls @ 120 mls/hr IV.CONT .Q8H20M [facility] Last Admin: 09/01/17 06:29 Dose: Not Given Lactulose (Lactulose Liq) 30 ml PO DAILY PRN PRN Reason: SEVERE CONSITIPATION Losartan Potassium (Cozaar) 50 mg PO DAILY [facility] Last Admin: 09/01/17 09:38 Dose: 50 mg Metoprolol Succinate (Toprol Xl) 50 mg PO DAILY [facility] Last Admin: 09/01/17 09:38 Dose: 50 mg Morphine Sulfate (Morphine Inj) 4 mg IV.PUSH Q3H PRN PRN Reason: breakthrough Naloxone HCl (Narcan Inj) 0.4 mg IV.PUSH UNSCH PRN PRN Reason: SEE LABEL COMMENTS Ondansetron HCl (Zofran Odt) 4 mg PO Q6H PRN PRN Reason: NAUSEA OR VOMITING Last Admin: 09/01/17 01:56 Dose: 4 mg Oxycodone/Acetaminophen (Percocet 10/325 Mg) 1 tab PO Q6H PRN PRN Reason: PAIN SCALE 6 TO 10 Oxycodone/Acetaminophen (Percocet 5/325 Mg) 1 tab PO Q6H PRN PRN Reason: PAIN SCALE 3 TO 5 Pantoprazole Sodium (Protonix Inj) 40 mg IV.PUSH BID [facility] Last Admin: 09/01/17 09:37 Dose: 40 mg Sennosides (Senokot) 17.2 mg PO Q12H PRN PRN Reason: Moderate Constipation Sodium Chloride (Ns Flush) 2 ml IV.FLUSH PRN PRN PRN Reason: FLUSH AFTER USING IV ACCESS Vitamin D (Vitamin D3) 2,000 unit PO DAILY [facility] Last Admin: 09/01/17 09:41 Dose: 2,000 unit Allergies Allergy/AdvReac Type Severity Reaction Status Date / Time aspirin Allergy Severe GI BLEED Verified 08/31/17 07:23 Home Medications Medication Instructions Recorded Confirmed Type alprazolam [Xanax] 0.25 mg PO QID 08/26/17 08/31/17 History buspirone 15 mg PO BID 08/26/17 08/31/17 History calcium carbonate [Calcium 600] 600 mg PO BID 08/26/17 08/31/17 History cholecalciferol (vitamin D3) 2,000 unit PO DAILY 08/26/17 08/31/17 History [Vitamin D3] cranberry extract 500 mg PO BID 08/26/17 08/31/17 History cyanocobalamin-cobamamide [B12] 1,000 mg SUBLINGUAL DAILY 08/26/17 08/31/17 History ferrous sulfate [iron] 65 mg PO DAILY 08/26/17 08/31/17 History losartan 50 mg PO DAILY 08/26/17 08/31/17 History lubiprostone [Amitiza] 8 mcg PO BID 08/26/17 08/31/17 History metoprolol succinate 50 mg PO DAILY 08/26/17 08/31/17 History mirabegron [Myrbetriq] 25 mg PO DAILY 08/26/17 08/31/17 History omega 8-ale-izc-fish oil [Gilbert-3] 500 mg PO DAILY 08/26/17 08/31/17 History omeprazole 40 mg PO DAILY 08/26/17 08/31/17 History oxycodone 10 mg PO Q4-6H PRN 08/26/17 08/31/17 History rivaroxaban [Xarelto] 20 mg PO DAILY 08/26/17 08/31/17 History rosuvastatin 20 mg PO DAILY 08/26/17 08/31/17 History Exam Vital signs: Vital Signs 08/31/17 11:00 08/31/17 12:55 08/31/17 13:30 Temperature Pulse Rate 112 H 106 H Respiratory Rate 18 22 Blood Pressure 162/87 H 164/96 H Pulse Oximetry 99 98 98 08/31/17 14:20 08/31/17 16:00 08/31/17 20:00 Temperature 98.4 F Pulse Rate 101 H 100 H 96 H Respiratory Rate 18 18 20 Blood Pressure 162/86 H 158/84 H 154/79 H Pulse Oximetry 99 100 93 L 08/31/17 22:20 08/31/17 23:40 09/01/17 00:00 Temperature 98.4 F Pulse Rate 101 H 98 H 93 H Respiratory Rate 20 Blood Pressure 139/77 Pulse Oximetry 94 L 09/01/17 04:05 Temperature Pulse Rate 93 H Respiratory Rate Blood Pressure Pulse Oximetry Intake & Output 08/31/17 09/01/17 09/01/17 18:59 06:59 18:59 Intake Total 1900 / 1900 Output Total 550 / 550 Balance 1350 / 1350 Weight 86.183 kg Intake: IV 1000 / 1000 NS Inj 1,000 ML @ 120 mls/hr IV 1000 / 1000 .CONT .Q8H20M [facility] Rx#:[id number] Oral 900 / 900 Output: Gastric Drainage 550 / 550 Left Nare 550 / 550 Other: Date of Last Bowel Movement 08/29/17 - Constitutional mild distress, average body habitus, cooperative - Routine HEENT Exam Head: Present: normocephalic, atraumatic. Absent: laceration, CSF rhinorrhea, CSF otorrhea Eye: Present: EOMI, PERRL. Absent: conjunctival icterus, scleral injection ENT: Present: mucous membranes moist - Routine Neck Exam Present: full ROM, trachea midline - Routine Respiratory Exam Present: CTA bilaterally. Absent: accessory muscle use, patient mechanically ventilated, decreased breath sounds, rales, respiratory distress, rhonchi - Routine Cardiovascular Exam Present: RRR. Absent: murmur, gallop, rubs - Routine Abdominal Exam Present: tenderness, distended, firm, drain. Absent: normoactive bowel sounds, rebound, guarding, rigid - Routine Extremities Exam Present: full ROM. Absent: cyanosis, clubbing, edema - Routine Skin Exam Present: dry. Absent: cyanosis, erythema, pallor, mottling, petechiae - Routine Neurological Exam Present: alert, oriented X3, tremors (On exertion). Absent: sensory deficit, motor deficit Results - Labs Result diagrams: 09/01/17 10:55 09/01/17 07:04 Abnormal lab results 08/31/17 08/31/17 08/31/17 Range/Units 09:33 10:56 18:06 WBC (4.0-11.0) th/mm3 RBC (4.00-5.30) mil/mm3 Hgb 10.4 L (11.6-15.3) gm/dL Hct 30.7 L (35.0-46.0) % Neut % (Auto) (16.0-70.0) % Lymph % (Auto) (9.0-44.0) % [place] % (Auto) (0.0-8.0) % Neut # (Auto) (1.8-7.7) th/mm3 Lymph # (Auto) (1.0-4.8) th/mm3 [place] # (Auto) (0.0-0.9) th/mm3 Sodium (136-145) meq/L Creatinine (0.50-1.00) mg/dL Estimated GFR (>89) mL/min Random Glucose (74-106) mg/dL Calcium (8.5-10.1) mg/dL AST (15-37) U/L Albumin (3.4-5.0) g/dL Urine Occult Blood Large H (Negative) Urine RBC 78 H (0-3) /hpf Urine WBC 7 H (0-5) /hpf MTS Gel Crossmatch See Detail 09/01/17 09/01/17 09/01/17 Range/Units 00:12 07:04 07:04 WBC 12.6 H (4.0-11.0) th/mm3 RBC 3.11 L (4.00-5.30) mil/mm3 Hgb 10.0 L 9.8 L (11.6-15.3) gm/dL Hct 28.9 L 29.2 L (35.0-46.0) % Neut % (Auto) 87.7 H (16.0-70.0) % Lymph % (Auto) 3.0 L (9.0-44.0) % [place] % (Auto) 9.0 H (0.0-8.0) % Neut # (Auto) 11.1 H (1.8-7.7) th/mm3 Lymph # (Auto) 0.4 L (1.0-4.8) th/mm3 [place] # (Auto) 1.1 H (0.0-0.9) th/mm3 Sodium 133 L (136-145) meq/L Creatinine 1.10 H (0.50-1.00) mg/dL Estimated GFR 48 L (>89) mL/min Random Glucose 128 H (74-106) mg/dL Calcium 8.3 L (8.5-10.1) mg/dL AST 11 L (15-37) U/L Albumin 3.3 L D (3.4-5.0) g/dL Urine Occult Blood (Negative) Urine RBC (0-3) /hpf Urine WBC (0-5) /hpf MTS Gel Crossmatch Short CBC 08/31/17 09/01/17 09/01/17 Range/Units 18:06 00:12 07:04 WBC 12.6 H (4.0-11.0) th/mm3 Hgb 10.4 L 10.0 L 9.8 L (11.6-15.3) gm/dL Hct 30.7 L 28.9 L 29.2 L (35.0-46.0) % Plt Count 192 (150-450) th/mm3 BMP 09/01/17 07:04 Sodium 133 L Potassium 4.1 Chloride 99 Carbon Dioxide 23.2 BUN 13 Creatinine 1.10 H Calcium 8.3 L Liver Function 09/01/17 Range/Units 07:04 Total Bilirubin 0.6 (0.2-1.0) mg/dL AST 11 L (15-37) U/L ALT 15 (10-53) U/L Alkaline Phosphatase 59 (45-117) U/L Albumin 3.3 L D (3.4-5.0) g/dL Urine 08/31/17 Range/Units 10:56 Urine Color Colorless (Yellw/Straw) Urine Clarity Clear (Clear) Urine pH 7.0 (5.0-8.5) Ur Specific [place] 1.016 (1.002-1.035) Urine Protein Negative (Neg-Trace) mg/dL Urine Glucose (UA) 50 (Negative) mg/dL - Imaging Impressions Abdomen/Pelvis CT 08/31/17 07:20 CONCLUSION: 1. 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 2. There is nephrostomy tip is in the right LX towards the anterior portion. 3. Stable left adrenal adenoma. 4. Significant dilatation of the common bile duct and mild biliary ductal dilatation left hepatic lobe present on the prior study from 2014, however, bile duct is more dilated since that time. Etiology is not evident. Abdomen X-Ray 09/01/17 07:00 CONCLUSION: Slight dilatation of the colon and extensive stool not significantly changed. Caprini VTE Risk Assessment Caprini VTE Risk Assessment: Moderate/High Risk (score >= 2) VTE Pharmacological Exception Reason: High risk for bleeding Caprini Risk Assessment Model: Point Value = 1 Point Value = 2 Point Value = 3 Point Value = 5 Age 41-60 Minor surgery BMI > 25 kg/m2 Swollen legs Varicose veins or History of unexplained or recurrent spontaneous Oral contraceptives or hormone replacement Sepsis (< 1 month) Serious lung disease, including pneumonia (< 1 month) Abnormal pulmonary function Acute myocardial infarction Congestive heart failure (< 1 month) History of inflammatory bowel disease Medical patient at bed rest Age 61-74 Arthroscopic surgery Major open surgery (> 45 min) Laparoscopic surgery (> 45 min) Malignancy Confined to bed (> 72 hours) Immobilizing plaster cast Central venous access Age >= 75 History of VTE Family history of VTE Factor V Leiden Prothrombin [id number] Lupus anticoagulant Anticardiolipin antibodies Elevated serum homocysteine Heparin-induced thrombocytopenia Other congenital or acquired thrombophilia Stroke (< 1 month) Elective arthroplasty Hip, pelvis, or leg fracture Acute spinal cord injury (< 1 month) Prophylaxis Regimen: Total Risk Factor Score Risk Level Prophylaxis Regimen 0-1 Low Early ambulation 2 Moderate Order ONE of the following: *Sequential Compression Device (SCD) *Heparin 5000 units SQ BID 3-4 Higher Order ONE of the following medications: *Heparin 5000 units SQ TID *Enoxaparin/Lovenox 40 mg SQ daily (WT < 150 kg, CrCl > 30 mL/min) *Enoxaparin/Lovenox 30 mg SQ daily (WT < 150 kg, CrCl > 10-29 mL/min) *Enoxaparin/Lovenox 30 mg SQ BID (WT < 150 kg, CrCl > 30 mL/min) AND/OR *Sequential Compression Device (SCD) 5 or more Highest Order ONE of the following medications: *Heparin 5000 units SQ TID (Preferred with Epidurals) *Enoxaparin/Lovenox 40 mg SQ daily (WT < 150 kg, CrCl > 30 mL/min) *Enoxaparin/Lovenox 30 mg SQ daily (WT < 150 kg, CrCl > 10-29 mL/min) *Enoxaparin/Lovenox 30 mg SQ BID (WT < 150 kg, CrCl > 30 mL/min) AND *Sequential Compression Device (SCD) Assessment and Plan - Assessment (1) Ureteral obstruction, right Code(s): N13.5 - Crossing vessel and stricture of ureter without hydronephrosis Status: Acute Plan: Patient with history of Right hydronephrosis of unknown origin with obstruction at UVJ. She underwent a right nephrostomy placement on 08/26/17 by IR. Patient follows with her urologist Dr. Minaya. She presented to the ED with complaints of worsening right-sided abdominal and back pain associated with nausea and increased hematuria. Of note: Dr. 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 In the ED CT scan abdomen pelvis showed: Worsening hydronephrotic sac in the right kidney with significant dilation of the right renal pelvis and hemorrhage within it compared to prior study from 08/26/2017. Slight dilatation of loops of large bowel particularly transverse colon measures 6.4 cm due to some degree of colonic ileus. There is moderate amount of stool throughout the colon. Patient is tachycardic and with elevated BP 160s/80-90s H/H at 12/14 slightly decrease from pre-op H/H of 12.4/36.1 UA negative for infection however urine positive for blood Patient still c/o sharp Right sided abdominal pain, rating 9/10. Is now better with her IV pain medicine. She cannot take any p.o. with her ileus. NG tube suction for medical management of ileus NPO IVF Pain management: Percocet per pain scale, cannot get this now. morphine for breakthrough pain. Has shortened the interval from every 4 to every 3 hours PPI 40mg BID monitor I/Os Urology consulted, appreciate recommendations Follow-up: Serial abdominal x-ray serial H&H (2) Anemia Code(s): D64.9 - Anemia, unspecified Status: Acute Plan: H/H at 12/14 slightly decrease from pre-op H/H of 12.4/36.1 UA negative for infection however urine positive for blood probably from the stent occult stool positive, no gross blood per rectum c/w protonix 40mg IV BID trend H&H consider Gi consult if patient continues to drop H&H (3) Ileus Code(s): K56.7 - Ileus, unspecified Status: Acute Plan: CT a/p: Slight dilatation of loops of large bowel particularly transverse colon measures 6.4 cm due to some degree of colonic ileus. There is moderate amount of stool throughout the colon. NG tube on suction for decompression serial abdominal xray bowel constipation regimen (4) Atrial fibrillation Code(s): I48.91 - Unspecified atrial fibrillation Status: Chronic Plan: Patient with history atrial fibrillation on Xarelto 50 mg twice daily. On exam patient with regular rate and rhythm with slight tachycardia 110s Xarelto on hold due to risk of bleeding Patient placed on telemetry Explained that the Xarelto would need to be held despite the increased risk of stroke as her problems of bleeding were of an urgent nature at this time If she continues to be unable to take p.o. will need to consider giving IV metoprolol for rate control. (5) Hypertension Code(s): I10 - Essential (primary) hypertension Status: Chronic Plan: Patient with blood pressure range 160s/80-90s Continue to monitor Resume blood pressure medication as tolerated (6) Sleep apnea Code(s): G47.30 - Sleep apnea, unspecified Status: Chronic Plan: Patient with history of sleep apnea. She uses CPAP at night. c/w CPAP Can order CPAP in the hospital if she does not bring her machine in. (7) Arthritis Code(s): M19.90 - Unspecified osteoarthritis, unspecified site Status: Acute Plan: Patient reports she uses oxycodone 10 before hours for her arthritic pain control. Patient currently on pain scale for abdominal pain however she is n.p.o. and will have to rely on IV pain medications for now (8) Anxiety Code(s): F41.9 - Anxiety disorder, unspecified Status: Acute Plan: Continue with home medications May need to switch to IV medicines (9) GERD (gastroesophageal reflux disease) Code(s): K21.9 - Gastro-esophageal reflux disease without esophagitis Status: Acute Plan: Patient placed on Protonix 40 mg twice daily (10) Nutrition, metabolism, and development symptoms Code(s): R63.8 - Other symptoms and signs concerning food and fluid intake Status: Acute Plan: Fluids: 120mls/hr Electrolytes: Replete as needed Nutrition: N.p.o. DVT prophylaxis: SCDs (6) Sleep apnea Qualifiers: Sleep apnea type: obstructive Qualified Code(s): G47.33 - Obstructive sleep apnea (adult) (pediatric) (9) GERD (gastroesophageal reflux disease) Qualifiers: Esophagitis presence: esophagitis presence not specified Qualified Code(s): K21.9 - Gastro-esophageal reflux disease without esophagitis
[2017-09-01 11:21] LABS: Hematocrit 28.6 % (35.0-46.0); Hemoglobin 9.7 gm/dL (11.6-15.3)
--- NOTE | 2017-09-01 12:31 | XR ---
EXAM DATE: 09/01/2017 12:25 PM EDT AGE/SEX: 82 years / Female INDICATIONS: . Nasogastric tube placement CLINICAL DATA: This is the patient's initial encounter. Patient reports that signs and symptoms have been present for 2 days and indicates a pain score of 0/10. MEDICAL/SURGICAL HISTORY: . GERD, inguinal hernia . hemmorrhoidectomy COMPARISON: No prior exams available for comparison. FINDINGS: A single AP view of the chest demonstrates the lung bases and upper abdomen. Nasogastric tube seen in the region of the GE junction. Lung bases are clear. The cardiomediastinal contours are unremarkabl e. Osseous structures are intact. CONCLUSION: Nasogastric tube with tip at the GE junction. This should be advanced. Electronically signed by: Howie Arechiga MD 09/01/2017 12:30 PM EDT
--- NOTE | 2017-09-01 14:37 | P.CONURO ---
History of Present Illness Service: Urology Consult date: 09/01/17 Reason for Consult: Right PCN, Changes on CT Primary Care Provider: Sukhwinder Kruger MD Family Provider: Sukhwinder Kruger MD Chief Complaint: abdominal pain History of Present Illness: Ms Cantor is a 82-year-old female with past medical history of A. 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 Patient reports that pain has been constant since urology procedure however is has gotten progressively worse. She describes pain as sharp initially reaching 10/10. She took oxycodone without any significant relief. Patient also reports worsening of hematuria from nephrostomy bag, blood became darker in color although no blood clots were noted in the urine. Patient reports that last bowel movement was 4 days ago. Endorses chills, nausea, dizziness, increase urinary frequency and weakness. Denies fever, dysuria, foul smelling urine, SOB, CP, palpitations, vomiting, blood in stool. At baseline patient ambulates with a cane. On admission she was found to have ileus as well and has NG tube now. She still has significant pain issues but states that the IV morphine is helping her. She is afebrile, has mild leukocytosis, Cr is stable. Her Rt PCN is not draining well. Blood noted in tubing. 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 - Medical History Medical History: Medical History (Last Updated 08/31/17 @ 14:13 by Karli Guevara MD, R2) Spinal stenosis (Acute) Benign breast lumps (Acute) Normal colonoscopy (Acute) Sleep apnea (Chronic) Chronic pain (Acute) Osteoporosis (Acute) Arthritis (Acute) Anxiety (Acute) Decreased vision (Acute) History of frequent urinary tract infections (Acute) GERD (gastroesophageal reflux disease) (Acute) Inguinal hernia (Acute) Obstructive sleep apnea on CPAP (Acute) Hypertension (Chronic) Atrial fibrillation (Chronic) History of blood product transfusion (Acute) High cholesterol (Acute) Benign familial tremor Degenerative disc disease - Surgical History Surgical History: Surgical History (Last Updated 08/31/17 @ 14:13 by Karli Guevara MD, R2) S/P ablation of atrial fibrillation (Acute) History of total right knee replacement (TKR) (Acute) Lens replaced (Acute) History of hemorrhoidectomy (Acute) Shoulder joint replacement status (Acute) History of back surgery (Acute) - Tobacco History Second Hand Smoke Exposure: No Tobacco Use In Past 30 Days: No Smoking Status: Never smoker - Alcohol History How Often Do You Have a Drink Containing Alcohol: Monthly or less - Substance Use History Substance History: No History of Abuse - Travel History Recent Travel in the [place] Within the Last 8 Weeks: No Recent Travel Out of the Country Within the Last 8 Weeks: No - Immunization History Tetanus Immunization: <5 Years Hx Influenza Vaccine This Season: Yes Medications and Allergies Active Medications: Active Medications Al Hydroxide/Mg Hydroxide (Milk Of Magnesia Liq) 30 ml PO Q12H PRN PRN Reason: Mild Constipation Atorvastatin Calcium (Lipitor) 40 mg PO DAILY [facility] Last Admin: 09/01/17 09:40 Dose: 40 mg Bisacodyl (Dulcolax Supp) 10 mg RECTAL DAILY PRN PRN Reason: SEVERE CONSITIPATION Buspirone HCl (Buspar) 15 mg PO BID [facility] Last Admin: 09/01/17 09:37 Dose: 15 mg Clonidine HCl (Catapres) 0.1 mg PO Q6H PRN PRN Reason: SEE LABEL COMMENTS Cyanocobalamin (Vitamin B12) 1,000 mcg PO DAILY [facility] Last Admin: 09/01/17 09:41 Dose: 1,000 mcg Ferrous Sulfate (Ferosul) 325 mg PO DAILY [facility] Last Admin: 09/01/17 09:38 Dose: 325 mg Sodium Chloride (Ns Inj) 1,000 mls @ 120 mls/hr IV.CONT .Q8H20M [facility] Last Admin: 09/01/17 13:18 Dose: 120 mls/hr Lactulose (Lactulose Liq) 30 ml PO DAILY PRN PRN Reason: SEVERE CONSITIPATION Losartan Potassium (Cozaar) 50 mg PO DAILY [facility] Last Admin: 09/01/17 09:38 Dose: 50 mg Metoprolol Succinate (Toprol Xl) 50 mg PO DAILY [facility] Last Admin: 09/01/17 09:38 Dose: 50 mg Morphine Sulfate (Morphine Inj) 4 mg IV.PUSH Q3H PRN PRN Reason: breakthrough Last Admin: 09/01/17 11:24 Dose: 4 mg Naloxone HCl (Narcan Inj) 0.4 mg IV.PUSH UNSCH PRN PRN Reason: SEE LABEL COMMENTS Ondansetron HCl (Zofran Odt) 4 mg PO Q6H PRN PRN Reason: NAUSEA OR VOMITING Last Admin: 09/01/17 01:56 Dose: 4 mg Oxycodone/Acetaminophen (Percocet 10/325 Mg) 1 tab PO Q6H PRN PRN Reason: PAIN SCALE 6 TO 10 Oxycodone/Acetaminophen (Percocet 5/325 Mg) 1 tab PO Q6H PRN PRN Reason: PAIN SCALE 3 TO 5 Pantoprazole Sodium (Protonix Inj) 40 mg IV.PUSH BID [facility] Last Admin: 09/01/17 09:37 Dose: 40 mg Sennosides (Senokot) 17.2 mg PO Q12H PRN PRN Reason: Moderate Constipation Sodium Chloride (Ns Flush) 2 ml IV.FLUSH PRN PRN PRN Reason: FLUSH AFTER USING IV ACCESS Vitamin D (Vitamin D3) 2,000 unit PO DAILY [facility] Last Admin: 09/01/17 09:41 Dose: 2,000 unit Allergies Allergy/AdvReac Type Severity Reaction Status Date / Time aspirin Allergy Severe GI BLEED Verified 08/31/17 07:23 Home Medications Medication Instructions Recorded Confirmed Type alprazolam [Xanax] 0.25 mg PO QID 08/26/17 08/31/17 History buspirone 15 mg PO BID 08/26/17 08/31/17 History calcium carbonate [Calcium 600] 600 mg PO BID 08/26/17 08/31/17 History cholecalciferol (vitamin D3) 2,000 unit PO DAILY 08/26/17 08/31/17 History [Vitamin D3] cranberry extract 500 mg PO BID 08/26/17 08/31/17 History cyanocobalamin-cobamamide [B12] 1,000 mg SUBLINGUAL DAILY 08/26/17 08/31/17 History ferrous sulfate [iron] 65 mg PO DAILY 08/26/17 08/31/17 History losartan 50 mg PO DAILY 08/26/17 08/31/17 History lubiprostone [Amitiza] 8 mcg PO BID 08/26/17 08/31/17 History metoprolol succinate 50 mg PO DAILY 08/26/17 08/31/17 History mirabegron [Myrbetriq] 25 mg PO DAILY 08/26/17 08/31/17 History omega 3-xqg-osd-fish oil [[place]-3] 500 mg PO DAILY 08/26/17 08/31/17 History omeprazole 40 mg PO DAILY 08/26/17 08/31/17 History oxycodone 10 mg PO Q4-6H PRN 08/26/17 08/31/17 History rivaroxaban [Xarelto] 20 mg PO DAILY 08/26/17 08/31/17 History rosuvastatin 20 mg PO DAILY 08/26/17 08/31/17 History Physical Exam Vital Signs - 24 hr 08/31/17 16:00 08/31/17 20:00 08/31/17 22:20 Temperature 98.4 F Pulse Rate 100 H 96 H 101 H Respiratory Rate 18 20 Blood Pressure 158/84 H 154/79 H Pulse Oximetry 100 93 L 08/31/17 23:40 09/01/17 00:00 09/01/17 04:05 Temperature 98.4 F Pulse Rate 98 H 93 H 93 H Respiratory Rate 20 Blood Pressure 139/77 Pulse Oximetry 94 L 09/01/17 08:00 09/01/17 12:00 Temperature 98.6 F 98.4 F Pulse Rate 86 85 Respiratory Rate 20 20 Blood Pressure 152/79 H 147/77 H Pulse Oximetry 92 L 94 L Physical Exam: GENERAL: This is a well-nourished, well-developed patient, in no apparent distress. HEAD: Atraumatic. Normocephalic. No temporal or scalp tenderness. CARDIOVASCULAR: Regular rate and rhythm without murmurs, gallops, or rubs. RESPIRATORY: Clear to auscultation. Breath sounds equal bilaterally. No wheezes , rales, or rhonchi. GENITOURINARY: Mild right CVAT, Bladder not distended. Benítez is in place. Rt PCN is in place but bag is empty MUSCULOSKELETAL: Extremities without clubbing, cyanosis, or edema. NEUROLOGICAL: Awake and alert. Laboratory Results - last 24 hr 0709/01/17 09/01/17 18:06 00:12 07:04 WBC 12.6 H RBC 3.11 L Hgb 10.4 L 10.0 L 9.8 L Hct 30.7 L 28.9 L 29.2 L MCV 93.9 MCH 31.5 MCHC 33.6 RDW 15.0 Plt Count 192 MPV 10.0 Neut % (Auto) 87.7 H Lymph % (Auto) 3.0 L [place] % (Auto) 9.0 H Eos % (Auto) 0.0 Baso % (Auto) 0.3 Neut # (Auto) 11.1 H Lymph # (Auto) 0.4 L [place] # (Auto) 1.1 H Eos # (Auto) 0.0 Baso # (Auto) 0.0 WBC Differential . Differential Comment Auto diff final Sodium Potassium Chloride Carbon Dioxide Anion Gap BUN Creatinine Estimated GFR Random Glucose Calcium Total Bilirubin AST ALT Alkaline Phosphatase Total Protein Albumin 09/01/17 09/01/17 07:04 10:55 WBC RBC Hgb 9.7 L Hct 28.6 L MCV MCH MCHC RDW Plt Count MPV Neut % (Auto) Lymph % (Auto) [place] % (Auto) Eos % (Auto) Baso % (Auto) Neut # (Auto) Lymph # (Auto) [place] # (Auto) Eos # (Auto) Baso # (Auto) WBC Differential Differential Comment Sodium 133 L Potassium 4.1 Chloride 99 Carbon Dioxide 23.2 Anion Gap 11 BUN 13 Creatinine 1.10 H Estimated GFR 48 L Random Glucose 128 H Calcium 8.3 L Total Bilirubin 0.6 AST 11 L ALT 15 Alkaline Phosphatase 59 Total Protein 7.3 D Albumin 3.3 L D Microbiology 08/31/17 12:18 Aerobic Blood Culture - Preliminary Blood - Peripheral No growth in 1 day Anaerobic Blood Culture - Preliminary No growth in 1 day 08/31/17 12:18 Aerobic Blood Culture - Preliminary Blood - Peripheral No growth in 1 day Anaerobic Blood Culture - Preliminary No growth in 1 day Result Diagrams: 09/01/17 10:55 09/01/17 07:04 Imaging: ITS Impressions Abdomen/Pelvis CT 08/31/17 07:20 CONCLUSION: 1. 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 2. There is nephrostomy tip is in the right LX towards the anterior portion. 3. Stable left adrenal adenoma. 4. Significant dilatation of the common bile duct and mild biliary ductal dilatation left hepatic lobe present on the prior study from 2014, however, bile duct is more dilated since that time. Etiology is not evident. Abdomen X-Ray 09/01/17 07:00 CONCLUSION: Slight dilatation of the colon and extensive stool not significantly changed. Chest X-Ray 09/01/17 11:43 CONCLUSION: Nasogastric tube with tip at the GE junction. This should be advanced. Assessment and Plan - Plan 82y.o F with Rt PCN due to obstruction, no stones and ileus. Admitted for abd and right flank pain Has NG tube, Rt PCN is draining well. Labs and VS are stable - Continue care as per primary team - No intervention from Urology needed. Her pain is worse possibly due to ileus PCN is in place, very minimal output, possibly clogged - Continue IV fluids and pain management - Consult IR to evaluate regarding CT findings of obstructed PCN and follow their recommendations - Pt to f/u with Dr Minaya as outpt as was scheduled before Discussed Condition With: DR Rei QUISPE attending
[2017-09-01] MEDS: Dextrose 5%/NaCl 0.45% Inj 1,000 ML IV.CONT SCH (18:33)
[2017-09-01 23:36] LABS: Hematocrit 27.7 % (35.0-46.0); Hemoglobin 9.4 gm/dL (11.6-15.3)
[2017-09-02] MEDS: Morphine Inj 4 MG/ML Vial IV.PUSH PRN ×4 (01:09→22:16)
[2017-09-02] MEDS: Dextrose 5%/NaCl 0.45% Inj 1,000 ML IV.CONT SCH (05:15)
[2017-09-02 07:05] LABS: Baso % (Auto) 0.2 % (0.0-2.0); Eos % (Auto) 0.1 % (0.0-4.0); Hematocrit 26.9 % (35.0-46.0); Hemoglobin 9.2 gm/dL (11.6-15.3); Lymph # (Auto) 0.7 th/mm3 (1.0-4.8); Lymph % (Auto) 6.7 % (9.0-44.0); Mean Corpuscular HGB Conc 34.3 % (32.0-36.0); Mean Corpuscular Hemoglobin 32.1 pg (27.0-34.0); Mean Corpuscular Volume 93.4 fL (80.0-100.0); Mean Platelet Volume 9.3 fL (7.0-11.0); Mono # (Auto) 1.3 th/mm3 (0.0-0.9); Mono % (Auto) 12.2 % (0.0-8.0); Neut # (Auto) 8.2 th/mm3 (1.8-7.7); Neut % (Auto) 80.8 % (16.0-70.0); Platelet Count 171 th/mm3 (150-450); Red Blood Count 2.88 mil/mm3 (4.00-5.30); Red Cell Distribution Width 14.8 % (11.6-17.2); White Blood Count 10.2 th/mm3 (4.0-11.0)
[2017-09-02 07:33] LABS: Calcium 7.9 mg/dL (8.5-10.1); Potassium 3.7 meq/L (3.5-5.1)
[2017-09-02] MEDS ORDERED: Bisacodyl 10 MG Supp RECTAL ONE (09:00)
--- NOTE | 2017-09-02 10:05 | XR ---
EXAM DATE: 09/02/2017 9:25 AM EDT AGE/SEX: 82 years / Female INDICATIONS: NG tube placement. Patient complains of abdomen pain. CLINICAL DATA: This is the patient's subsequent encounter. Patient reports that signs and symptoms h ave been present for 1 week and indicates a pain score of 8/10. MEDICAL/SURGICAL HISTORY: Cardiovascular disease. Gastroesophageal reflux disease. Hypertensi on. . Hemorrhoidectomy. Hernia repair Right nephrostomy tube 08/26 COMPARISON: [facility] [place] ABDOMEN 2V FLAT & UPRIGHT, 09/01/2017. . FINDINGS: There is an NG tube in the stomach. NG tube has been mildly pulled back compared to the prior study. The bowel gas pattern is nonspecific with some air-filled nondilated loops of colon. There is some st ool in the colon. There continues to be a catheter along the right midabdomen. The bowel gas pattern appears to be mildly improved compared to the prior study. The bony structures are stable. CONCLUSION: 1. There continues to be an NG tube in the proximal stomach. May consider advancing NG tube approxim ately 5 cm. 2. Mild improvement in the bowel gas pattern compared to the prior exam. Electronically signed by: Rich Myers MD 09/02/2017 10:04 AM EDT
[2017-09-02] MEDS: Pantoprazole Inj 40 MG Vial IV.PUSH SCH ×2 (10:24→22:07)
[2017-09-02] MEDS: Ferrous Sulfate 325 MG Tablet PO SCH (10:24)
--- NOTE | 2017-09-02 14:33 | P.PNFP ---
Subjective Interval history: Patient seen and examined at bedside this morning. NG tube came out overnight, however it was replaced this morning. Patient still having bilious output from NG tube. Patient reports that her abdominal distention and pain are stable. She still has not had a bowel movement but is passing gas. <Karli Guevara - 09/02/17 15:14> Results - Labs Result diagrams: 09/05/17 07:00 09/05/17 07:00 <Elen Rasmussen - 09/05/17 13:20> Abnormal lab results 09/05/17 09/05/17 Range/Units 07:00 07:00 RBC 2.71 L (4.00-5.30) mil/mm3 Hgb 8.7 L (11.6-15.3) gm/dL Hct 25.0 L (35.0-46.0) % Sodium 133 L (136-145) meq/L Potassium 3.3 L (3.5-5.1) meq/L Chloride 97 L (98-107) meq/L BUN 5 L (7-18) mg/dL Random Glucose 128 H (74-106) mg/dL Calcium 8.2 L (8.5-10.1) mg/dL Short CBC 09/05/17 Range/Units 07:00 WBC 8.0 (4.0-11.0) th/mm3 Hgb 8.7 L (11.6-15.3) gm/dL Hct 25.0 L (35.0-46.0) % Plt Count 267 (150-450) th/mm3 BMP 09/05/17 07:00 Sodium 133 L Potassium 3.3 L Chloride 97 L Carbon Dioxide 25.0 BUN 5 L Creatinine 0.64 Calcium 8.2 L <Elen Rasmussen - 09/05/17 13:20> Abnormal lab results 09/01/17 09/02/17 09/02/17 Range/Units 23:15 06:21 06:21 RBC 2.88 L (4.00-5.30) mil/mm3 Hgb 9.4 L 9.2 L (11.6-15.3) gm/dL Hct 27.7 L 26.9 L (35.0-46.0) % Neut % (Auto) 80.8 H (16.0-70.0) % Lymph % (Auto) 6.7 L (9.0-44.0) % [place] % (Auto) 12.2 H (0.0-8.0) % Neut # (Auto) 8.2 H (1.8-7.7) th/mm3 Lymph # (Auto) 0.7 L (1.0-4.8) th/mm3 [place] # (Auto) 1.3 H (0.0-0.9) th/mm3 Sodium 133 L (136-145) meq/L Estimated GFR 56 L (>89) mL/min Random Glucose 123 H (74-106) mg/dL Calcium 7.9 L (8.5-10.1) mg/dL Short CBC 09/01/17 09/02/17 Range/Units 23:15 06:21 WBC 10.2 (4.0-11.0) th/mm3 Hgb 9.4 L 9.2 L (11.6-15.3) gm/dL Hct 27.7 L 26.9 L (35.0-46.0) % Plt Count 171 (150-450) th/mm3 [facility] 09/02/17 06:21 Sodium 133 L Potassium 3.7 Chloride 100 Carbon Dioxide 25.0 BUN 12 Creatinine 0.96 Calcium 7.9 L <Karli Guevara - 09/02/17 14:33> - Imaging Impressions Abdomen X-Ray 09/02/17 00:00 CONCLUSION: 1. There continues to be an NG tube in the proximal stomach. May consider advancing NG tube approximately 5 cm. 2. Mild improvement in the bowel gas pattern compared to the prior exam. <Karli Guevara - 09/02/17 14:33> Physical Exam Vital signs: Vital Signs 09/04/17 14:52 09/04/17 16:00 09/04/17 20:00 Temperature 98.6 F 98.1 F Pulse Rate 126 H 128 H Respiratory Rate 18 18 Blood Pressure 132/86 146/85 H Pulse Oximetry 99 99 98 09/04/17 20:31 09/05/17 00:00 09/05/17 04:00 Temperature 98.0 F 98.2 F Pulse Rate 153 H 127 H Respiratory Rate 20 18 Blood Pressure 110/87 109/90 Pulse Oximetry 99 98 99 09/05/17 08:00 Temperature 97.7 F Pulse Rate 124 H Respiratory Rate 18 Blood Pressure 115/97 H Pulse Oximetry 99 Intake & Output 09/04/17 09/05/17 09/05/17 18:59 06:59 18:59 Output Total 1000 / 1000 510 / 510 Balance -1000 / -1000 -510 / -510 Output: Urine Amount (Catheter) 400 / 400 Indwelling Urethral Catheter 400 / 400 Gastric Drainage 210 / 210 Right Nare 210 / 210 Wound Drainage 600 / 600 300 / 300 right nephrostomy tube 600 / 600 300 / 300 Other: Bladder Irrigation Fluid - Amount Drained Indwelling Urethral Catheter 50 # Voids 2 Date of Last Bowel Movement 09/05/17 # Bowel Movements 1 <Elen Rasmussen M - 09/05/17 13:20> Vital Signs 09/01/17 16:00 09/01/17 17:52 09/01/17 18:32 Temperature 98.6 F Pulse Rate 88 Respiratory Rate 20 18 Blood Pressure 150/83 H Pulse Oximetry 92 L 92 L 09/01/17 20:00 09/02/17 00:00 09/02/17 00:30 Temperature 99.3 F 98.1 F Pulse Rate 90 92 H 90 Respiratory Rate 20 20 Blood Pressure 152/78 H 152/78 H Pulse Oximetry 93 L 95 09/02/17 03:55 09/02/17 04:00 09/02/17 08:00 Temperature 97.9 F 98.0 F Pulse Rate 112 H 92 H 114 H Respiratory Rate 20 18 Blood Pressure 134/90 120/89 Pulse Oximetry 95 93 L 09/02/17 09:42 09/02/17 12:00 Temperature 97.6 F Pulse Rate 117 H Respiratory Rate 18 Blood Pressure 134/89 Pulse Oximetry 95 96 Intake & Output 09/01/17 09/02/17 09/02/17 18:59 06:59 18:59 Intake Total 1000 / 1000 Output Total 500 / 500 350 / 350 950 / 950 Balance -500 / -500 650 / 650 -950 / -950 Weight 88.2 kg Intake: IV 1000 / 1000 D5W/1/2 NS Inj 1,000 ML @ 100 1000 / 1000 mls/hr IV.CONT .Q10H SHARYN Rx#: [id number] Output: Urine 500 / 500 Urine Amount (Catheter) 950 / 950 Indwelling Urethral Catheter 950 / 950 Gastric Drainage 350 / 350 Right Nare 350 / 350 Other: Date of Last Bowel Movement 08/29/17 <Karli Guevara D - 09/02/17 14:33> - Constitutional no acute distress <Karli Guevara D 09/02/17 15:14> - Routine HEENT Exam Eye: Present: EOMI, PERRL <Karli Guevara D 09/02/17 15:14> - Routine Neck Exam Present: supple, full ROM. Absent: JVD <Karli Guevara D 09/02/17 15:14> - Routine Respiratory Exam Present: CTA bilaterally. Absent: accessory muscle use <Karli Guevara D 15:14> - Routine Cardiovascular Exam Present: RRR, S1, S2. Absent: murmur, gallop, rubs <Karli Guevara D 15:14> - Routine Abdominal Exam Present: normoactive bowel sounds, tenderness (Tenderness to palpation on right upper and lower quadrant), distended. Absent: rebound, guarding <Karli Guevara D 09/02/17 15:14> - Routine Extremities Exam Absent: cyanosis, edema <Karli Guevara D 09/02/17 15:14> - Routine Skin Exam Present: intact <Karli Guevara D 09/02/17 15:14> - Routine Neurological Exam Present: alert, oriented X3, CN II-XII intact, tremors (chronic familial tremor) <Karli Guevara D 09/02/17 15:14> - Routine Psychiatric Exam Present: normal affect <Karli Guevara D 09/02/17 15:14> - Urinary Catheter Management Indwelling Urethral Catheter Cath placed during this visit: no <Elen Rasmussen - 09/05/17 13:20> yes <IsmaelKarli D 09/02/17 15:14> Reason for continuing: Chronic Urinary Retention <IsmaelKarli D 09/02/17 14:33> Insertion date: 08/31/17 <IsmaelKarli D 09/02/17 14:33> Insertion time: 11:00 <Shelly Guevaraly D 09/02/17 14:33> Assessment and Plan - Assessment (1) Ureteral obstruction, right Code(s): N13.5 - Crossing vessel and stricture of ureter without hydronephrosis Status: Acute (2) Anemia Code(s): D64.9 - Anemia, unspecified Status: Resolved (3) Ileus Code(s): K56.7 - Ileus, unspecified Status: Acute (4) Atrial fibrillation Code(s): I48.91 - Unspecified atrial fibrillation Status: Chronic (5) Hypertension Code(s): I10 - Essential (primary) hypertension Status: Chronic (6) Sleep apnea Code(s): G47.30 - Sleep apnea, unspecified Status: Chronic (7) Arthritis Code(s): M19.90 - Unspecified osteoarthritis, unspecified site Status: Acute (8) Anxiety Code(s): F41.9 - Anxiety disorder, unspecified Status: Acute (9) GERD (gastroesophageal reflux disease) Code(s): K21.9 - Gastro-esophageal reflux disease without esophagitis Status: Acute (10) Nutrition, metabolism, and development symptoms Code(s): R63.8 - Other symptoms and signs concerning food and fluid intake Status: Acute <Elen Rasmussen M - 09/05/17 13:20> (1) Ureteral obstruction, right Code(s): N13.5 - Crossing vessel and stricture of ureter without hydronephrosis Status: Acute Plan: Patient with history of Right hydronephrosis of unknown origin with obstruction at UVJ. She underwent a right nephrostomy placement on 08/26/17 by IR. Patient follows with her urologist Dr. Minaya. She presented to the ED with complaints of worsening right-sided abdominal and back pain associated with nausea and increased hematuria. Of note: Dr. 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 In the ED CT scan abdomen pelvis showed: Worsening hydronephrotic sac in the right kidney with significant dilation of the right renal pelvis and hemorrhage within it compared to prior study from 08/26/2017. Slight dilatation of loops of large bowel particularly transverse colon measures 6.4 cm due to some degree of colonic ileus. There is moderate amount of stool throughout the colon. On admission patient was tachycardic and with elevated BP 160s/80-90s H/H at 12/14 slightly decrease from pre-op H/H of 12.4/36.1 UA negative for infection however urine positive for blood Patient still c/o sharp Right sided abdominal pain, rating 9/10. Is now better with her IV pain medicine. H&H has remained stable Repeat abdominal x-ray this morning 97/18) showed improvement of bowel gas pattern NG tube at the intermittent suction for medical management of ileus NPO IVF with D5 Pain management: Percocet per pain scale, cannot get this now. morphine Q3h for breakthrough pain. PPI 40mg BID monitor I/Os Urology consulted, appreciate recommendations No urology intervention indicated at this time Interventional radiology consulted for evaluation of obstructed PCN Follow-up: Serial abdominal x-ray (2) Anemia Code(s): D64.9 - Anemia, unspecified Status: Acute Plan: H/H at 12/14 slightly decrease from pre-op H/H of 12.4/36.1 UA negative for infection however urine positive for blood probably from the stent occult stool positive, no gross blood per rectum c/w protonix 40mg IV BID H&H stable consider Gi consult if patient continues to drop H&H (3) Ileus Code(s): K56.7 - Ileus, unspecified Status: Acute Plan: CT a/p: Slight dilatation of loops of large bowel particularly transverse colon measures 6.4 cm due to some degree of colonic ileus. There is moderate amount of stool throughout the colon. NG tube on suction for decompression serial abdominal xray bowel constipation regimen Abdominal x-ray from today showed improvement in bowel gas pattern Consider consulting general surgery for further management of ileus is no improvement by tomorrow (4) Atrial fibrillation Code(s): I48.91 - Unspecified atrial fibrillation Status: Chronic Plan: Patient with history atrial fibrillation on Xarelto 50 mg twice daily. On exam patient with regular rate and rhythm with slight tachycardia 110s Xarelto on hold due to risk of bleeding Patient placed on telemetry Explained that the Xarelto would need to be held despite the increased risk of stroke as her problems of bleeding were of an urgent nature at this time Continue with metoprolol (5) Hypertension Code(s): I10 - Essential (primary) hypertension Status: Chronic Plan: Patient with blood pressure within normal limits Continue to monitor Resume blood pressure medication as tolerated (6) Sleep apnea Code(s): G47.30 - Sleep apnea, unspecified Status: Chronic Plan: Patient with history of sleep apnea. She uses CPAP at night. c/w CPAP (7) Arthritis Code(s): M19.90 - Unspecified osteoarthritis, unspecified site Status: Acute Plan: Patient reports she uses oxycodone 10 before hours for her arthritic pain control. Patient currently on pain scale for abdominal pain however she is n.p.o. and will have to rely on IV pain medications for now (8) Anxiety Code(s): F41.9 - Anxiety disorder, unspecified Status: Acute Plan: Continue with home medications May need to switch to IV medicines (9) GERD (gastroesophageal reflux disease) Code(s): K21.9 - Gastro-esophageal reflux disease without esophagitis Status: Acute Plan: Patient placed on Protonix 40 mg twice daily (10) Nutrition, metabolism, and development symptoms Code(s): R63.8 - Other symptoms and signs concerning food and fluid intake Status: Acute Plan: Fluids: 1/2 NS with D5 @ 100mls/hr Electrolytes: Replete as needed Nutrition: N.p.o. DVT prophylaxis: SCDs GI ppx: protonix BID <Karli Guevara - 09/02/17 15:01> - Attending Attestation The exam, history, and the medical decision-making described in the above note were completed with the assistance of the resident physician. I reviewed and agree with the findings presented. I attest that I had a [id number] encounter with the patient on the same day, and personally performed and documented my assessment and findings in the medical record. Unsure if she ended up with the ileus because of all the renal problems but she is improving a little bit day today. <Elen Rasmussen M - 09/05/17 13:20> <Karli Guevara D - Last Filed: 09/02/17 15:01> (6) Sleep apnea Qualifiers: Sleep apnea type: obstructive Qualified Code(s): G47.33 - Obstructive sleep apnea (adult) (pediatric) (9) GERD (gastroesophageal reflux disease) Qualifiers: Esophagitis presence: esophagitis presence not specified Qualified Code(s): K21.9 - Gastro-esophageal reflux disease without esophagitis <Elen Rasmussen M - Last Filed: 09/05/17 13:20> (6) Sleep apnea Qualifiers: Sleep apnea type: obstructive Qualified Code(s): G47.33 - Obstructive sleep apnea (adult) (pediatric) (9) GERD (gastroesophageal reflux disease) Qualifiers: Esophagitis presence: esophagitis presence not specified Qualified Code(s): K21.9 - Gastro-esophageal reflux disease without esophagitis <Karli Guevara D - Last Filed: 09/02/17 15:01> (6) Sleep apnea Qualifiers: Sleep apnea type: obstructive Qualified Code(s): G47.33 - Obstructive sleep apnea (adult) (pediatric) (9) GERD (gastroesophageal reflux disease) Qualifiers: Esophagitis presence: esophagitis presence not specified Qualified Code(s): K21.9 - Gastro-esophageal reflux disease without esophagitis <Elen Rasmussen M - Last Filed: 09/05/17 13:20> (6) Sleep apnea Qualifiers: Sleep apnea type: obstructive Qualified Code(s): G47.33 - Obstructive sleep apnea (adult) (pediatric) (9) GERD (gastroesophageal reflux disease) Qualifiers: Esophagitis presence: esophagitis presence not specified Qualified Code(s): K21.9 - Gastro-esophageal reflux disease without esophagitis
[2017-09-02] MEDS ORDERED: Levofloxacin 500 mg Premix Inj 500 MG/100 ML PIGGYBACK IV.SIG ONE (14:36)
[2017-09-02] MEDS ORDERED: fentaNYL Citrate Inj 100 MCG/2 ML Ampul ONE (14:36)
--- NOTE | 2017-09-02 16:08 | P.RAD ---
Post Procedure Progress Note - Pre Procedure Diagnosis (1) Ureteral obstruction, right - Post Procedure Diagnosis (1) Ureteral obstruction, right - Procedure Information Procedure Date: 09/02/17 Supervising Radiologist: Evangelist Frost MD Estimated blood loss (mL): 2 Anesthesia: Local, Conscious Sedation - Plan of Activity Patient to Unit: [facility] Patient Condition: Fair Additional Comments: Right nephrostomy tube evaluated. The tube had pulled out through the renal cortex and was in the perinephric space. An .035 glide was manipulated through the tract and a new 10 vincentian tube placed tube was placed. collecting system was filled with blood. Full dictated report to follow. See PACS Report for procedural detail/treatment.
--- NOTE | 2017-09-02 17:09 | P.PNADD ---
Addendum to Inpatient Note Reason for Addendum: Additional Documentation Additional information: Residents informed by nurse in [facility] patient after nephrostomy tube replacement procedure patient was tachycardic ranging from 130-150 with blood pressure of 112 over 60s, RR 20s, O2 sat 99 on 6 L. In addition nurse reported that on report she was told that the patient was found to have a tear in the right kidney. A stat H&H have been ordered. Patient evaluated. Patient denied any chest pain, shortness of breath, palpitations or dizziness. She reports her abdominal pain has resolved. O: HR: 120-140 BP 117/62 RR: 20 O2 sat: 99% on 4L NC GEN: Resting comfortably in bed, no acute distress Cardio: irregular rhythm, Normal S1 and S2, no m/g/r Resp: mild crackles BL Abd: soft, distended, non-tender, no guarding or rebound Right nephrostomy tube in place draining bloody urine A/P: 82-year-old female with past medical history of A. fib admitted for worsening right abdominal and flank pain found to have obstruction of right nephrostomy tube that was placed on 08/26 and medical management of ileus. CT A/ P on admission showed worsening hydronephrotic sac in the right kidney significant dilation of right renal pelvis and hemorrhage within it. Patient's nephrostomy tube was replaced today by IR. Abdominal pain has resolved. Continue holding Xarelto Follow-up EKG and CXR Follow-up H&H results, if not stable transfer to critical care Trend H&H overnight Metoprolol 5 mg IV push 1 Titrate oxygen to maintain O2 saturation greater than 92% Continue to monitor vital signs SCDs for DVT prophylaxis
[2017-09-02 17:14] LABS: Hematocrit 28.6 % (35.0-46.0); Hemoglobin 9.7 gm/dL (11.6-15.3)
[2017-09-02] MEDS ORDERED: Metoprolol Inj 5 MG/5 ML Vial IV.PUSH ONE (17:30)
[2017-09-02] MEDS: oxyCODONE/Acetaminophen 10/325 Tablet PO PRN (18:12)
--- NOTE | 2017-09-02 19:18 | XR ---
EXAM DATE: 09/02/2017 6:36 PM EDT AGE/SEX: 82 years / Female INDICATIONS: . Short of breath. CLINICAL DATA: This is the patient's initial encounter. Patient reports that signs and symptoms have been present for 1 day and indicates a pain score of 5/10. MEDICAL/SURGICAL HISTORY: None. None. COMPARISON: [facility], CHEST 1V SINGLE AP, 09/01/2017. [facility], CHEST PA & LAT, 03/30/2015. [facility], CHEST SIN GLE AP, 07/03/2012. [facility], CHEST SINGLE AP, 06/19/2012. . FINDINGS: Gastric tube tip and side-port project within the stomach. The lungs are symmetrically aerated. No fo jennifer infiltrates seen. Heart upper limits normal size. Moderate degenerative changes in the thoracic s pine. Bilateral shoulder arthroplasty. CONCLUSION: 1. No focal infiltrates seen. 2. Gastric tube in good position. Electronically signed by: Gideon Cam MD 09/02/2017 7:17 PM EDT
[2017-09-02 23:08] LABS: Hematocrit 26.7 % (35.0-46.0); Hemoglobin 9.4 gm/dL (11.6-15.3)
[2017-09-03] MEDS: oxyCODONE/Acetaminophen 10/325 Tablet PO PRN ×4 (00:52→21:44)
[2017-09-03 04:45] LABS: Hematocrit 25.4 % (35.0-46.0); Hemoglobin 8.7 gm/dL (11.6-15.3)
[2017-09-03 04:58] LABS: Calcium 7.7 mg/dL (8.5-10.1); Carbon Dioxide 23.2 meq/L (21.0-32.0); Potassium 3.7 meq/L (3.5-5.1)
[2017-09-03] MEDS: Morphine Inj 4 MG/ML Vial IV.PUSH PRN ×3 (06:06→19:00)
[2017-09-03] MEDS: Pantoprazole Inj 40 MG Vial IV.PUSH SCH ×2 (09:23→20:58)
[2017-09-03] MEDS: Ferrous Sulfate 325 MG Tablet PO SCH (09:25)
--- NOTE | 2017-09-03 11:27 | XR ---
EXAM DATE: 09/03/2017 11:09 AM EDT AGE/SEX: 82 years / Female INDICATIONS: Evaluate ileus. CLINICAL DATA: This is the patient's subsequent encounter. Patient reports that signs and symptoms h ave been present for 1 week and indicates a pain score of Nonresponsive. MEDICAL/SURGICAL HISTORY: . Cardiovascular disease. Gastroesophageal reflux disease. Hypertensi on. . Hemorrhoidectomy. Hernia repair Right nephrostomy tube. COMPARISON: [facility] [place], ABDOMEN SINGLE VIEW, 09/02/2017. . FINDINGS: Examination of the abdomen demonstrates continued reduction in the degree of colonic distention. Naso gastric tube remains in the proximal stomach. Nephrostomy tube projects over the right abdomen. Sever e degenerative changes in the lower lumbar spine and lumbosacral junction. Osseous structures are oth erwise intact. No pneumoperitoneum. Stable elevation of the right hemidiaphragm. CONCLUSION: 1. Continued reduction in the colonic air distention seen previously characteristic of an improving hypodynamic ileus. 2. Stable position of nasogastric and right nephrostomy tubes. 3. Stable elevation of the right hemidiaphragm. No pneumoperitoneum identified on this supine series . Electronically signed by: Lucien Jeffers MD 09/03/2017 11:26 AM EDT
--- NOTE | 2017-09-03 11:47 | P.PNFP ---
Subjective Interval history: Patient was seen at bedside this morning. Overnight patient was found to be tachycardic, and received 50 mg metoprolol extended release crushed early this morning. This morning the patient reports to be "all right" but expressed concern about her NG tube being taken out and replaced, as well as concern over not having a bowel movement yet. It was discussed with the patient our plan to obtain abdominal x-ray as well as the possibility of removing NG tube pending results. Patient continues to be constipated. Patient denies any subjective fevers, chills, shortness of breath, chest pain, nausea, or vomiting. All questions were answered to the patient's satisfaction. <Chris Zapata - 09/03/17 18:13> Results - Labs Result diagrams: 09/05/17 07:00 09/05/17 07:00 <Elen Rasmussen - 09/05/17 13:22> Abnormal lab results 09/05/17 09/05/17 Range/Units 07:00 07:00 RBC 2.71 L (4.00-5.30) mil/mm3 Hgb 8.7 L (11.6-15.3) gm/dL Hct 25.0 L (35.0-46.0) % Sodium 133 L (136-145) meq/L Potassium 3.3 L (3.5-5.1) meq/L Chloride 97 L (98-107) meq/L BUN 5 L (7-18) mg/dL Random Glucose 128 H (74-106) mg/dL Calcium 8.2 L (8.5-10.1) mg/dL Short CBC 09/05/17 Range/Units 07:00 WBC 8.0 (4.0-11.0) th/mm3 Hgb 8.7 L (11.6-15.3) gm/dL Hct 25.0 L (35.0-46.0) % Plt Count 267 (150-450) th/mm3 BMP 09/05/17 07:00 Sodium 133 L Potassium 3.3 L Chloride 97 L Carbon Dioxide 25.0 BUN 5 L Creatinine 0.64 Calcium 8.2 L <Elen Rasmussen - 09/05/17 13:22> Abnormal lab results 08/31/17 09/02/17 09/02/17 Range/Units 09:33 16:40 22:58 Hgb 9.7 L 9.4 L (11.6-15.3) gm/dL Hct 28.6 L 26.7 L (35.0-46.0) % Sodium (136-145) meq/L Creatinine (0.50-1.00) mg/dL Estimated GFR (>89) mL/min Random Glucose (74-106) mg/dL Calcium (8.5-10.1) mg/dL MTS Gel Crossmatch See Detail 09/03/17 09/03/17 Range/Units 03:27 03:27 Hgb 8.7 L (11.6-15.3) gm/dL Hct 25.4 L (35.0-46.0) % Sodium 132 L (136-145) meq/L Creatinine 1.03 H (0.50-1.00) mg/dL Estimated GFR 51 L (>89) mL/min Random Glucose 124 H (74-106) mg/dL Calcium 7.7 L (8.5-10.1) mg/dL MTS Gel Crossmatch Short CBC 09/02/17 09/02/17 09/03/17 Range/Units 16:40 22:58 03:27 Hgb 9.7 L 9.4 L 8.7 L (11.6-15.3) gm/dL Hct 28.6 L 26.7 L 25.4 L (35.0-46.0) % BMP 09/03/17 03:27 Sodium 132 L Potassium 3.7 Chloride 98 Carbon Dioxide 23.2 BUN 13 Creatinine 1.03 H Calcium 7.7 L <Chris Zapata 09/03/17 11:46> - Imaging Impressions Chest X-Ray 09/02/17 00:00 CONCLUSION: 1. No focal infiltrates seen. 2. Gastric tube in good position. Abdomen X-Ray 09/03/17 00:00 CONCLUSION: 1. Continued reduction in the colonic air distention seen previously characteristic of an improving hypodynamic ileus. 2. Stable position of nasogastric and right nephrostomy tubes. 3. Stable elevation of the right hemidiaphragm. No pneumoperitoneum identified on this supine series. <Chris Zapata 09/03/17 11:46> Physical Exam Vital signs: Vital Signs 09/04/17 14:52 09/04/17 16:00 09/04/17 20:00 Temperature 98.6 F 98.1 F Pulse Rate 126 H 128 H Respiratory Rate 18 18 Blood Pressure 132/86 146/85 H Pulse Oximetry 99 99 98 09/04/17 20:31 09/05/17 00:00 09/05/17 04:00 Temperature 98.0 F 98.2 F Pulse Rate 153 H 127 H Respiratory Rate 20 18 Blood Pressure 110/87 109/90 Pulse Oximetry 99 98 99 09/05/17 08:00 Temperature 97.7 F Pulse Rate 124 H Respiratory Rate 18 Blood Pressure 115/97 H Pulse Oximetry 99 Intake & Output 09/04/17 09/05/17 09/05/17 18:59 06:59 18:59 Output Total 1000 / 1000 510 / 510 Balance -1000 / -1000 -510 / -510 Output: Urine Amount (Catheter) 400 / 400 Indwelling Urethral Catheter 400 / 400 Gastric Drainage 210 / 210 Right Nare 210 / 210 Wound Drainage 600 / 600 300 / 300 right nephrostomy tube 600 / 600 300 / 300 Other: Bladder Irrigation Fluid - Amount Drained Indwelling Urethral Catheter 50 # Voids 2 Date of Last Bowel Movement 09/05/17 # Bowel Movements 1 <Elen Rasmussen M - 09/05/17 13:22> Vital Signs 09/02/17 12:00 09/02/17 16:00 09/02/17 16:15 Temperature 97.6 F 98.2 F Pulse Rate 117 H 130 H 138 H Respiratory Rate 18 20 20 Blood Pressure 134/89 119/77 112/71 Pulse Oximetry 96 90 L 20 L 09/02/17 16:30 09/02/17 17:00 09/02/17 17:15 Temperature Pulse Rate 136 H 122 H 131 H Respiratory Rate 18 18 18 Blood Pressure 105/68 117/82 105/77 Pulse Oximetry 99 98 98 09/02/17 18:28 09/02/17 18:40 09/02/17 20:00 Temperature 98.0 F 98.3 F Pulse Rate 136 H 119 H 102 H Respiratory Rate 16 Blood Pressure 131/82 122/88 120/87 Pulse Oximetry 98 98 96 09/03/17 00:00 09/03/17 04:00 09/03/17 08:00 Temperature 98.2 F 97.7 F 98.2 F Pulse Rate 88 86 116 H Respiratory Rate 18 18 17 Blood Pressure 104/74 103/72 118/80 Pulse Oximetry 94 L 96 97 Intake & Output 09/02/17 09/03/17 09/03/17 18:59 06:59 18:59 Intake Total 100 / 100 Output Total 1900 / 1900 200 / 200 50 / 50 Balance -1800 / -1800 -200 / -200 -50 / -50 Weight 87.8 kg Intake: IV 100 / 100 Levaquin 500 mg Premix Inj 500 100 / 100 mg In 100 ml @ 0 mls/hr [id number] Output: Urine 950 / 950 Urine Amount (Catheter) 950 / 950 Indwelling Urethral Catheter 950 / 950 Wound Drainage 200 / 200 50 / 50 right nephrostomy tube 200 / 200 50 / 50 Other: Date of Last Bowel Movement 08/25/17 # Bowel Movements 0 <Chris Zapata 09/03/17 11:46> - Constitutional mild distress, obese, cooperative <Chris Zapata 09/03/17 18:13> - Routine HEENT Exam Head: Present: normocephalic, atraumatic <Chris Zapata 09/03/17 18:13> Eye: Present: EOMI <Chris Zapata 09/03/17 18:13> - Routine Respiratory Exam Present: CTA bilaterally. Absent: accessory muscle use, decreased breath sounds , rales, respiratory distress, rhonchi, stridor, wheezes, crackles, distant breath sounds, diminished air movement <Chris Zapata 09/03/17 18:13> - Routine Cardiovascular Exam Present: RRR, S1, S2. Absent: murmur, gallop, rubs <Chris Zapata 09/03/17 18:13> - Routine Abdominal Exam Present: normoactive bowel sounds, distended, firm. Absent: tenderness, rebound , guarding <Chris Zapata 09/03/17 18:13> Comments: Abdomen was distended and firm to the touch. No pain, rebound or guarding upon palpation. Bowel sounds were loud and clear and active throughout all quadrants of the abdomen. Patient has nephrostomy tube draining mix of bloody urine. <Chris Zapata 09/03/17 18:13> - Routine Extremities Exam Absent: cyanosis, clubbing, edema <Chris Zapata 09/03/17 18:13> - Routine Skin Exam Absent: intact, cyanosis, erythema <Chris Zapata 09/03/17 18:13> - Routine Neurological Exam Present: alert, oriented X3, CN II-XII intact, moving all extremities, normal speech. Absent: sensory deficit, motor deficit, altered mental status, normal tone, vision grossly intact, hearing grossly intact, facial asymmetry <Chris Zapata 09/03/17 18:13> - Detailed Neurological Exam: Coma Scale Eye Opening: Spontaneous <Chris Zapata 09/03/17 18:13> Verbal Response: Oriented <Chris Zapata 09/03/17 18:13> Motor Response: Obey commands <Chris Zapata 09/03/17 18:13> Joey Coma Scale Total: 15 <Chris Zapata 09/03/17 18:13> - Routine Psychiatric Exam Present: normal affect, normal thought process, cooperative, good insight, good judgment. Absent: anxious, agitated <Chris Zapata 09/03/17 18:13> - Urinary Catheter Management Indwelling Urethral Catheter Cath placed during this visit: no <[place] - 09/05/17 13:22> yes <Chris Zapata 09/03/17 18:13> Insertion date: 08/31/17 <Chris Zapata 09/03/17 11:46> Insertion time: 11:00 <Chris Zapata 09/03/17 11:46> Assessment and Plan - Assessment (1) Ureteral obstruction, right Code(s): N13.5 - Crossing vessel and stricture of ureter without hydronephrosis Status: Acute (2) Anemia Code(s): D64.9 - Anemia, unspecified Status: Resolved (3) Ileus Code(s): K56.7 - Ileus, unspecified Status: Acute (4) Atrial fibrillation Code(s): I48.91 - Unspecified atrial fibrillation Status: Chronic (5) Hypertension Code(s): I10 - Essential (primary) hypertension Status: Chronic (6) Sleep apnea Code(s): G47.30 - Sleep apnea, unspecified Status: Chronic (7) Arthritis Code(s): M19.90 - Unspecified osteoarthritis, unspecified site Status: Acute (8) Anxiety Code(s): F41.9 - Anxiety disorder, unspecified Status: Acute (9) GERD (gastroesophageal reflux disease) Code(s): K21.9 - Gastro-esophageal reflux disease without esophagitis Status: Acute (10) Nutrition, metabolism, and development symptoms Code(s): R63.8 - Other symptoms and signs concerning food and fluid intake Status: Acute <Elen Rasmussen - 09/05/17 13:22> (1) Ureteral obstruction, right Code(s): N13.5 - Crossing vessel and stricture of ureter without hydronephrosis Status: Acute Plan: Patient with history of Right hydronephrosis of unknown origin with obstruction at UVJ. She underwent a right nephrostomy placement on 08/26/17 by IR. Patient follows with her urologist Dr. Minaya. She presented to the ED with complaints of worsening right-sided abdominal and back pain associated with nausea and increased hematuria. Of note: Dr. 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 In the ED CT scan abdomen pelvis showed: Worsening hydronephrotic sac in the right kidney with significant dilation of the right renal pelvis and hemorrhage within it compared to prior study from 08/26/2017. Slight dilatation of loops of large bowel particularly transverse colon measures 6.4 cm due to some degree of colonic ileus. There is moderate amount of stool throughout the colon. UA negative for infection however urine positive for blood. H&H has remained stable with an H\\H of 8.7\\25.4 this morning. Patient status post new 10 [place] tube placed via IR on September 02, 2017. Currently draining a mix of urine and blood. Abdominal x-ray ordered this morning. BUN\\creatinine today 13\\1.03. Estimated GFR 51. - Follow-up with abdominal x-ray - Monitor nephrostomy drainage - Monitor vitals - Monitor CBC - NG tube at the intermittent suction for medical management of ileus - NPO - IVF with D5 - Pain management: Percocet per pain scale, cannot get this now. morphine Q3h for breakthrough pain. - PPI 40mg BID -monitor I/Os (2) Anemia Code(s): D64.9 - Anemia, unspecified Status: Acute Plan: H\\H currently stable at 8.7\\25.4 this morning. Due to continued blood in urine another H\\H ordered at 3 PM this afternoon. -Follow-up with H\\H -Transfuse if hemoglobin falls below 7 -Continue with Protonix 40mg IV BID -Consider Gi consult if patient continues to drop H&H (3) Ileus Code(s): K56.7 - Ileus, unspecified Status: Acute Plan: CT a/p: Slight dilatation of loops of large bowel particularly transverse colon measures 6.4 cm due to some degree of colonic ileus. There is moderate amount of stool throughout the colon. Patient continues to be constipated with last bowel movement over 3 days ago. Upon examination abdomen is tense and distended but without pain upon palpation. Bowel sounds were active throughout the abdomen in all 4 quadrants. Nasogastric tube currently in place patient denies any nausea. Abdominal x-ray ordered for this afternoon. Patient will continue be n.p.o. overnight will reassess in the morning. - NG tube on suction for decompression - Bowel constipation regimen - Consider consulting general surgery for further management of ileus is no improvement by tomorrow (4) Atrial fibrillation Code(s): I48.91 - Unspecified atrial fibrillation Status: Chronic Plan: Patient with history atrial fibrillation on Xarelto 50 mg twice daily. Patient with tachycardia overnight as well as this morning. On telemetry there were no acute events. If patient continues to be tachycardic despite treatment with 50 metoprolol consider metoprolol drip and cardiac intensive care unit. - Xarelto on hold due to risk of bleeding - Patient placed on telemetry - Explained that the Xarelto would need to be held despite the increased risk of stroke as her problems of bleeding were of an urgent nature at this time - Continue with metoprolol (5) Hypertension Code(s): I10 - Essential (primary) hypertension Status: Chronic Plan: This morning blood pressure 98\\84. - Continue to monitor -Hold blood pressure medications old blood pressure increases, resume blood pressure medication if indicated and as tolerated (6) Sleep apnea Code(s): G47.30 - Sleep apnea, unspecified Status: Chronic Plan: Patient with history of sleep apnea. She uses CPAP at night. c/w CPAP (7) Arthritis Code(s): M19.90 - Unspecified osteoarthritis, unspecified site Status: Acute Plan: Patient reports she uses oxycodone 10 before hours for her arthritic pain control. Patient currently on pain scale for abdominal pain however she is n.p.o. and will have to rely on IV pain medications for now (8) Anxiety Code(s): F41.9 - Anxiety disorder, unspecified Status: Acute Plan: Continue with home medications May need to switch to IV medicines (9) GERD (gastroesophageal reflux disease) Code(s): K21.9 - Gastro-esophageal reflux disease without esophagitis Status: Acute Plan: Patient placed on Protonix 40 mg twice daily (10) Nutrition, metabolism, and development symptoms Code(s): R63.8 - Other symptoms and signs concerning food and fluid intake Status: Acute Plan: Fluids: 1/2 NS with D5 @ 100mls/hr Electrolytes: Replete as needed Nutrition: N.p.o. DVT prophylaxis: SCDs GI ppx: protonix BID <Chris Zapata O - 09/03/17 17:45> - Attending Attestation The exam, history, and the medical decision-making described in the above note were completed with the assistance of the resident physician. I reviewed and agree with the findings presented. I attest that I had a [id number] encounter with the patient on the same day, and personally performed and documented my assessment and findings in the medical record. She is very slow to move around and essentially has been lying in bed this whole time. She is using narcotics and insists that her pain is so bad she cannot stand it. She is on p.o. narcotics at home so she does have a high tolerance. <Elen Rasmussen M - 09/05/17 13:22> <Chris Zapata - Last Filed: 09/03/17 17:45> (6) Sleep apnea Qualifiers: Sleep apnea type: obstructive Qualified Code(s): G47.33 - Obstructive sleep apnea (adult) (pediatric) (9) GERD (gastroesophageal reflux disease) Qualifiers: Esophagitis presence: esophagitis presence not specified Qualified Code(s): K21.9 - Gastro-esophageal reflux disease without esophagitis <Elen Rasmussen M - Last Filed: 09/05/17 13:22> (6) Sleep apnea Qualifiers: Sleep apnea type: obstructive Qualified Code(s): G47.33 - Obstructive sleep apnea (adult) (pediatric) (9) GERD (gastroesophageal reflux disease) Qualifiers: Esophagitis presence: esophagitis presence not specified Qualified Code(s): K21.9 - Gastro-esophageal reflux disease without esophagitis <Chris Zapata - Filed: 09/03/17 17:45> (6) Sleep apnea Qualifiers: Sleep apnea type: obstructive Qualified Code(s): G47.33 - Obstructive sleep apnea (adult) (pediatric) (9) GERD (gastroesophageal reflux disease) Qualifiers: Esophagitis presence: esophagitis presence not specified Qualified Code(s): K21.9 - Gastro-esophageal reflux disease without esophagitis <Elen Rasmussen M - Last Filed: 09/05/17 13:22> (6) Sleep apnea Qualifiers: Sleep apnea type: obstructive Qualified Code(s): G47.33 - Obstructive sleep apnea (adult) (pediatric) (9) GERD (gastroesophageal reflux disease) Qualifiers: Esophagitis presence: esophagitis presence not specified Qualified Code(s): K21.9 - Gastro-esophageal reflux disease without esophagitis
[2017-09-03 15:40] LABS: Hematocrit 26.4 % (35.0-46.0)
[2017-09-03] MEDS: Dextrose 5%/NaCl 0.45% Inj 1,000 ML IV.CONT SCH (19:02)
--- NOTE | 2017-09-03 19:32 | ECG ---
Date Performed: 09/02/2017 Time Performed: 17:49:03 PTAGE: 82 years EKG: ATRIAL FIBRILLATION WITH RAPID VENTRICULAR RESPONSE NONSPECIFIC T-WAVE ABNORMALITY ABNORMAL RHYTHM ECG PREVIOUS TRACING : 08/31/2017 08.01 Atrial Fibrillation is new from the prior tracing DOCTOR: Rex Landa Interpretating Date/Time 09/03/2017 19:31:03
[2017-09-04] MEDS: Morphine Inj 4 MG/ML Vial IV.PUSH PRN ×5 (01:34→23:30)
[2017-09-04] MEDS: Dextrose 5%/NaCl 0.45% Inj 1,000 ML IV.CONT SCH (05:12)
[2017-09-04] MEDS: oxyCODONE/Acetaminophen 10/325 Tablet PO PRN ×3 (05:15→18:20)
[2017-09-04] MEDS: Ferrous Sulfate 325 MG Tablet PO SCH (08:30)
[2017-09-04] MEDS: Pantoprazole Inj 40 MG Vial IV.PUSH SCH ×2 (08:30→20:48)
[2017-09-04 10:14] LABS: Hematocrit 26.4 % (35.0-46.0); Hemoglobin 8.9 gm/dL (11.6-15.3); Mean Corpuscular HGB Conc 33.6 % (32.0-36.0); Mean Corpuscular Hemoglobin 31.5 pg (27.0-34.0); Mean Corpuscular Volume 93.8 fL (80.0-100.0); Mean Platelet Volume 9.2 fL (7.0-11.0); Platelet Count 233 th/mm3 (150-450); Red Blood Count 2.82 mil/mm3 (4.00-5.30); Red Cell Distribution Width 14.8 % (11.6-17.2); White Blood Count 7.8 th/mm3 (4.0-11.0)
--- NOTE | 2017-09-04 10:23 | P.PNFP ---
Subjective Interval history: Patient was seen at bedside this morning. Overnight patient remained tachycardic but remained asymptomatic. Patient reports that she has overall felt well overnight, but continues to have abdominal pain as well as some nausea with no vomiting. She reports passing some flatus overnight although very little, and has not yet had a bowel movement. It was discussed with the patient future plans for removal of NG tube. The patient agrees and understands that once she no longer feels nauseous and has had a bowel movement we will proceed with the conversation about removing the NG tube. There is some anxiety on her part due to the discomfort of placing NG tube and patient would prefer not to have removed then to have it removed and replaced. Patient denies any subjective fevers, chills, shortness of breath, chest pain, BM or vomiting. All questions were answered to the patient's satisfaction. <Chris Zapata O - 09/04/17 11:35> Results - Labs Result diagrams: 09/05/17 07:00 09/05/17 07:00 <Elen Rasmussen - 09/05/17 13:24> Abnormal lab results 09/05/17 09/05/17 Range/Units 07:00 07:00 RBC 2.71 L (4.00-5.30) mil/mm3 Hgb 8.7 L (11.6-15.3) gm/dL Hct 25.0 L (35.0-46.0) % Sodium 133 L (136-145) meq/L Potassium 3.3 L (3.5-5.1) meq/L Chloride 97 L (98-107) meq/L BUN 5 L (7-18) mg/dL Random Glucose 128 H (74-106) mg/dL Calcium 8.2 L (8.5-10.1) mg/dL Short CBC 09/05/17 Range/Units 07:00 WBC 8.0 (4.0-11.0) th/mm3 Hgb 8.7 L (11.6-15.3) gm/dL Hct 25.0 L (35.0-46.0) % Plt Count 267 (150-450) th/mm3 BMP 09/05/17 07:00 Sodium 133 L Potassium 3.3 L Chloride 97 L Carbon Dioxide 25.0 BUN 5 L Creatinine 0.64 Calcium 8.2 L <Elen Rasmussen - 09/05/17 13:24> Abnormal lab results 09/03/17 Range/Units 14:57 Hgb 9.0 L (11.6-15.3) gm/dL Hct 26.4 L (35.0-46.0) % Short CBC 09/03/17 Range/Units 14:57 Hgb 9.0 L (11.6-15.3) gm/dL Hct 26.4 L (35.0-46.0) % <Chris Zapata - 09/04/17 10:23> - Imaging Impressions Abdomen X-Ray 09/03/17 00:00 CONCLUSION: 1. Continued reduction in the colonic air distention seen previously characteristic of an improving hypodynamic ileus. 2. Stable position of nasogastric and right nephrostomy tubes. 3. Stable elevation of the right hemidiaphragm. No pneumoperitoneum identified on this supine series. <Chris Zapata - 09/04/17 10:23> Physical Exam Vital signs: Vital Signs 09/04/17 14:52 09/04/17 16:00 09/04/17 20:00 Temperature 98.6 F 98.1 F Pulse Rate 126 H 128 H Respiratory Rate 18 18 Blood Pressure 132/86 146/85 H Pulse Oximetry 99 99 98 09/04/17 20:31 09/05/17 00:00 09/05/17 04:00 Temperature 98.0 F 98.2 F Pulse Rate 153 H 127 H Respiratory Rate 20 18 Blood Pressure 110/87 109/90 Pulse Oximetry 99 98 99 09/05/17 08:00 Temperature 97.7 F Pulse Rate 124 H Respiratory Rate 18 Blood Pressure 115/97 H Pulse Oximetry 99 Intake & Output 09/04/17 09/05/17 09/05/17 18:59 06:59 18:59 Output Total 1000 / 1000 510 / 510 Balance -1000 / -1000 -510 / -510 Output: Urine Amount (Catheter) 400 / 400 Indwelling Urethral Catheter 400 / 400 Gastric Drainage 210 / 210 Right Nare 210 / 210 Wound Drainage 600 / 600 300 / 300 right nephrostomy tube 600 / 600 300 / 300 Other: Bladder Irrigation Fluid - Amount Drained Indwelling Urethral Catheter 50 # Voids 2 Date of Last Bowel Movement 09/05/17 # Bowel Movements 1 <Elen Rasmussen - 09/05/17 13:24> Vital Signs 09/03/17 12:00 09/03/17 12:15 09/03/17 16:00 Temperature 98.0 F 97.8 F Pulse Rate 98 H 120 H 88 Respiratory Rate 18 18 Blood Pressure 98/84 L 116/69 Pulse Oximetry 98 98 09/03/17 16:20 09/03/17 20:00 09/03/17 22:26 Temperature 98.0 F Pulse Rate 107 H 110 H Respiratory Rate 18 Blood Pressure 144/79 H Pulse Oximetry 100 98 09/04/17 00:00 09/04/17 04:00 09/04/17 08:00 Temperature 97.2 F L 97.8 F 98.1 F Pulse Rate 109 H 110 H 98 H Respiratory Rate 18 18 18 Blood Pressure 105/57 L 121/90 106/67 Pulse Oximetry 98 99 99 Intake & Output 09/03/17 09/04/17 09/04/17 18:59 06:59 18:59 Intake Total 1000 / 1000 1000 / 1000 Output Total 1500 / 1500 Balance -500 / -500 1000 / 1000 Weight 88.1 kg Intake: IV 1000 / 1000 1000 / 1000 D5W/1/2 NS Inj 1,000 ML @ 100 1000 / 1000 1000 / 1000 mls/hr IV.CONT .Q10H [facility] Rx#: [id number] Output: Urine 450 / 450 Urine Amount (Catheter) 850 / 850 Indwelling Urethral Catheter 850 / 850 Wound Drainage 200 / 200 right nephrostomy tube 200 / 200 Other: Date of Last Bowel Movement 08/25/17 # Bowel Movements 0 <Chris Zapata - 09/04/17 10:23> - Constitutional no acute distress, mild distress, cooperative <Chris Zapata - 09/04/17 10:23> - Routine HEENT Exam Head: Present: normocephalic, atraumatic <Chris Zapata - 09/04/17 10:23> - Routine Respiratory Exam Present: CTA bilaterally. Absent: accessory muscle use, rales, respiratory distress, rhonchi, stridor, wheezes, crackles, distant breath sounds, diminished air movement <Chris Zapata 09/04/17 10:23> - Routine Cardiovascular Exam Absent: RRR, S1, S2, murmur, gallop, rubs <Chris Zapata 09/04/17 11:35> Comments: At bedside patient had a heart rate of 120 with irregular pulse. According to patient she was asymptomatic. <Chris Zapata 09/04/17 11:35> - Routine Abdominal Exam Present: distended, firm <Chris Zapata 09/04/17 10:23> Comments: Patient's abdomen was firm and distended but less so than yesterday. No pain was elicited on palpation. Patient has nephrostomy in place draining dark blood. Bowel sounds very active throughout abdomen in all 4 quadrants. <Chris Zapata 09/04/17 11:35> - Routine Exam Comments: Patient is urinary catheter in place draining the mix of bloody urine. <Chris Zapata 09/04/17 11:35> - Routine Extremities Exam Present: calf tenderness. Absent: cyanosis, clubbing, edema <Chris Zapata 09/04/17 11:35> Comments: Patient has calf tenderness bilaterally which she claims she has had for months to years. <Chris Zapata 09/04/17 11:35> - Routine Skin Exam Present: intact. Absent: cyanosis, erythema <Chris Zapata 09/04/17 11:35> - Routine Neurological Exam Present: alert, oriented X3, CN II-XII intact, moving all extremities, vision grossly intact, hearing grossly intact, normal speech. Absent: altered mental status, facial asymmetry <Chris Zapata 09/04/17 11:35> - Detailed Neurological Exam: Coma Scale Eye Opening: Spontaneous <Chris Zapata 09/04/17 11:35> Verbal Response: Oriented <Chris Zapata 09/04/17 11:35> Motor Response: Obey commands <Chris Zapata 09/04/17 11:35> Filer Coma Scale Total: 15 <Chris Zapata 09/04/17 11:35> - Routine Psychiatric Exam Present: normal affect, normal thought process, cooperative, good insight, good judgment. Absent: anxious, agitated <Chris Zapata 09/04/17 11:35> - Urinary Catheter Management Indwelling Urethral Catheter Cath placed during this visit: no <[place],Elen M - 09/05/17 13:24> yes <Chris Zapata - 09/04/17 11:35> Reason for continuing: Chronic Urinary Retention <Chris Zapata - 09/04/17 10: 23> Insertion date: 08/31/17 <Chris Zapata - 09/04/17 10:23> Insertion time: 11:00 <Chris Zapata - 09/04/17 10:23> Assessment and Plan - Assessment (1) Ureteral obstruction, right Code(s): N13.5 - Crossing vessel and stricture of ureter without hydronephrosis Status: Acute (2) Anemia Code(s): D64.9 - Anemia, unspecified Status: Resolved (3) Ileus Code(s): K56.7 - Ileus, unspecified Status: Acute (4) Atrial fibrillation Code(s): I48.91 - Unspecified atrial fibrillation Status: Chronic (5) Hypertension Code(s): I10 - Essential (primary) hypertension Status: Chronic (6) Sleep apnea Code(s): G47.30 - Sleep apnea, unspecified Status: Chronic (7) Arthritis Code(s): M19.90 - Unspecified osteoarthritis, unspecified site Status: Acute (8) Anxiety Code(s): F41.9 - Anxiety disorder, unspecified Status: Acute (9) GERD (gastroesophageal reflux disease) Code(s): K21.9 - Gastro-esophageal reflux disease without esophagitis Status: Acute (10) Nutrition, metabolism, and development symptoms Code(s): R63.8 - Other symptoms and signs concerning food and fluid intake Status: Acute <Elen Rasmussen - 09/05/17 13:24> (1) Ureteral obstruction, right Code(s): N13.5 - Crossing vessel and stricture of ureter without hydronephrosis Status: Acute Plan: Patient with history of Right hydronephrosis of unknown origin with obstruction at UVJ. She underwent a right nephrostomy placement on 08/26/17 by IR. Patient follows with her urologist Dr. Minaya. She presented to the ED with complaints of worsening right-sided abdominal and back pain associated with nausea and increased hematuria. Of note: Dr. 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 In the ED CT scan abdomen pelvis showed: Worsening hydronephrotic sac in the right kidney with significant dilation of the right renal pelvis and hemorrhage within it compared to prior study from 08/26/2017. There is moderate amount of stool throughout the colon. UA negative for infection however urine positive for blood. Patient status post new 10 Syriac tube placed via IR on September 02, 2017. Currently draining a mix of urine and blood. Abdominal x-ray ordered this morning. Abdominal x-ray on September 03, 2017 showed stable position of the nasogastric and right nephrostomy tubes. Stable elevation of the right hemidiaphragm. No pneumoperitoneum identified on the supine series. H&H has remained stable with an H\H of 8.9\26.4 this morning, and white count at 7.8. - Monitor nephrostomy drainage - Monitor vitals - Monitor CBC - IVF with D5 - Pain management: Percocet per pain scale, cannot get this now. morphine Q3h for breakthrough pain. - PPI 40mg BID -monitor I/Os (2) Anemia Code(s): D64.9 - Anemia, unspecified Status: Acute Plan: H\H currently stable at 8.9/26.4 this morning and stable. -Continue to monitor H/H -Transfuse if hemoglobin falls below 7 -Continue with Protonix 40mg IV BID -Consider Gi consult if patient begins to have drop in H&H (3) Ileus Code(s): K56.7 - Ileus, unspecified Status: Acute Plan: CT a/p: Slight dilatation of loops of large bowel particularly transverse colon measures 6.4 cm due to some degree of colonic ileus. There is moderate amount of stool throughout the colon. Patient continues to be constipated with last bowel movement over 4 days ago. Upon examination abdomen is tense and distended but less so than yesterday and had no pain upon palpation. Bowel sounds were active throughout the abdomen in all 4 quadrants. Overnight patient did experience some nausea without vomiting. Abdominal x-ray from September 03, 2017 showed continued reduction in the colonic air distention seen previously characteristic of an improving hypodynamic ileus. No pneumoperitoneum identified in the supine series. Patient has still not had a bowel movement but is passing flatus although be it very small. It was as agreed with the patient that the NG tube would stay in place until the patient is a longer feeling nauseous, as she would rather leave it in place then to remove and replaced due to discomfort. Patient currently n.p.o. with exception of medications. - NG tube currently off suction to assess patient's ability to tolerate without vomiting - Bowel constipation regimen - Consider consulting general surgery for further management of ileus is no improvement (4) Atrial fibrillation Code(s): I48.91 - Unspecified atrial fibrillation Status: Chronic Plan: Patient with history atrial fibrillation on Xarelto 50 mg twice daily. Patient with tachycardia overnight as well as this morning. Patient reports being asymptomatic and not feeling any flutter, palpitations, or racing heart. On telemetry there were no arrhythmias noted. But at bedside patient was found to have an heart rate of 120 with an irregular pulse. Heart rate today at 98. If patient continues to be tachycardic despite treatment with 50 metoprolol consider metoprolol drip and cardiac intensive care unit. - Xarelto on hold due to risk of bleeding - Patient placed on telemetry - Explained that the Xarelto would need to be held despite the increased risk of stroke as her problems of bleeding were of an urgent nature at this time - Continue with metoprolol (5) Hypertension Code(s): I10 - Essential (primary) hypertension Status: Chronic Plan: This morning blood pressure 121/90. - Continue to monitor -Hold blood pressure medications old blood pressure increases, resume blood pressure medication if indicated and as tolerated (6) Sleep apnea Code(s): G47.30 - Sleep apnea, unspecified Status: Chronic Plan: Patient with history of sleep apnea. She uses CPAP at night. c/w CPAP (7) Arthritis Code(s): M19.90 - Unspecified osteoarthritis, unspecified site Status: Acute Plan: Patient reports she uses oxycodone 10 before hours for her arthritic pain control. Patient currently on pain scale for abdominal pain however she is n.p.o. and will have to rely on IV pain medications for now (8) Anxiety Code(s): F41.9 - Anxiety disorder, unspecified Status: Acute Plan: Continue with home medications May need to switch to IV medicines (9) GERD (gastroesophageal reflux disease) Code(s): K21.9 - Gastro-esophageal reflux disease without esophagitis Status: Acute Plan: Patient placed on Protonix 40 mg twice daily (10) Nutrition, metabolism, and development symptoms Code(s): R63.8 - Other symptoms and signs concerning food and fluid intake Status: Acute Plan: Fluids: 1/2 NS with D5 @ 100mls/hr Electrolytes: Replete as needed Nutrition: N.p.o. DVT prophylaxis: SCDs GI ppx: protonix BID <Chris Zapata O - 09/04/17 10:46> - Attending Attestation The exam, history, and the medical decision-making described in the above note were completed with the assistance of the resident physician. I reviewed and agree with the findings presented. I attest that I had a [id number] encounter with the patient on the same day, and personally performed and documented my assessment and findings in the medical record. Ordered her urinary catheter as well as her NG tube discontinued. Part of her problems with the continued constipation are that she is not moving around at all. She also is on narcotics continuously. By removing some of the tubes hopefully she will get up and move around a little bit more and be able to have more normal bowel movements. Also will try an enema. Can consider a GI consult since everything we have done so far has not really made much forward progress in her constipation. Unsure if they would consider a Gastrografin enema or something else that would be more effective. <Elen Rasmussen M - 09/05/17 13:24> <Chris Zapata O - Last Filed: 09/04/17 10:46> (6) Sleep apnea Qualifiers: Sleep apnea type: obstructive Qualified Code(s): G47.33 - Obstructive sleep apnea (adult) (pediatric) (9) GERD (gastroesophageal reflux disease) Qualifiers: Esophagitis presence: esophagitis presence not specified Qualified Code(s): K21.9 - Gastro-esophageal reflux disease without esophagitis <Elen Rasmussen M - Last Filed: 09/05/17 13:24> (6) Sleep apnea Qualifiers: Sleep apnea type: obstructive Qualified Code(s): G47.33 - Obstructive sleep apnea (adult) (pediatric) (9) GERD (gastroesophageal reflux disease) Qualifiers: Esophagitis presence: esophagitis presence not specified Qualified Code(s): K21.9 - Gastro-esophageal reflux disease without esophagitis <Chris Zapata O - Last Filed: 09/04/17 10:46> (6) Sleep apnea Qualifiers: Sleep apnea type: obstructive Qualified Code(s): G47.33 - Obstructive sleep apnea (adult) (pediatric) (9) GERD (gastroesophageal reflux disease) Qualifiers: Esophagitis presence: esophagitis presence not specified Qualified Code(s): K21.9 - Gastro-esophageal reflux disease without esophagitis <Elen Rasmussen M - Last Filed: 09/05/17 13:24> (6) Sleep apnea Qualifiers: Sleep apnea type: obstructive Qualified Code(s): G47.33 - Obstructive sleep apnea (adult) (pediatric) (9) GERD (gastroesophageal reflux disease) Qualifiers: Esophagitis presence: esophagitis presence not specified Qualified Code(s): K21.9 - Gastro-esophageal reflux disease without esophagitis
[2017-09-04 10:42] LABS: Calcium 8.1 mg/dL (8.5-10.1); Carbon Dioxide 25.7 meq/L (21.0-32.0); Potassium 3.5 meq/L (3.5-5.1)
--- NOTE | 2017-09-04 13:57 | P.DIET ---
Nutritional Evaluation Type of nutrition evaluation: initial (NPO Screen) Assessment Assessment: NPO screen received. Pt has been NPO for 4 days. NGT to [facility]WS. Pt w/ ileus. Please consult RD if needed.
[2017-09-04] MEDS ORDERED: Sod Phosphate/Sod Biphosphate (Adult) Enema 133 ML Bottle RECTAL ONE (23:00)
[2017-09-05] MEDS: oxyCODONE/Acetaminophen 10/325 Tablet PO PRN ×4 (00:59→19:48)
[2017-09-05] MEDS ORDERED: Metoprolol Tartrate 50 MG Tablet PO ONE (02:19)
[2017-09-05] MEDS: Morphine Inj 4 MG/ML Vial IV.PUSH PRN (04:00)
[2017-09-05] MEDS: Pantoprazole Inj 40 MG Vial IV.PUSH SCH ×2 (08:16→21:01)
[2017-09-05] MEDS: Ferrous Sulfate 325 MG Tablet PO SCH (08:16)
[2017-09-05 09:03] LABS: Hemoglobin 8.7 gm/dL (11.6-15.3); Mean Corpuscular HGB Conc 34.8 % (32.0-36.0); Mean Corpuscular Hemoglobin 32.1 pg (27.0-34.0); Mean Corpuscular Volume 92.2 fL (80.0-100.0); Mean Platelet Volume 9.8 fL (7.0-11.0); Platelet Count 267 th/mm3 (150-450); Red Blood Count 2.71 mil/mm3 (4.00-5.30); Red Cell Distribution Width 14.3 % (11.6-17.2)
[2017-09-05 09:25] LABS: Calcium 8.2 mg/dL (8.5-10.1); Potassium 3.3 meq/L (3.5-5.1)
--- NOTE | 2017-09-05 10:44 | P.CONGI ---
History of Present Illness Consult date: 09/05/17 Chief complaint: Ileus, Renal hematoma History of Present Illness: This is a 82-year-old female with past medical history of A. 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 Gi were consulted for persistent constipation/ileus despite bowel regimen and fleet enema. CT a/p: Slight dilatation of loops of large bowel particularly transverse colon measures 6.4 cm due to some degree of colonic ileus. There is moderate amount of stool throughout the colon. Abdominal x-ray from September 03, 2017 showed continued reduction in the colonic air distention seen previously characteristic of an improving hypodynamic ileus. No pneumoperitoneum identified in the supine series. Patient has still not had a bowel movement but is passing flatus but minimal. Pt has NGT to LIWS in place. 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 - Medical History Medical History: Medical History (Last Reviewed 09/10/17 @ 15:04 by MARIA D Healy) Spinal stenosis (Acute) Benign breast lumps (Acute) Normal colonoscopy (Acute) Sleep apnea (Chronic) Chronic pain (Acute) Osteoporosis (Acute) Arthritis (Acute) Anxiety (Chronic) Decreased vision (Acute) History of frequent urinary tract infections (Acute) GERD (gastroesophageal reflux disease) (Acute) Inguinal hernia (Acute) Obstructive sleep apnea on CPAP (Chronic) Hypertension (Chronic) Atrial fibrillation (Chronic) History of blood product transfusion (Acute) High cholesterol (Chronic) Benign familial tremor Degenerative disc disease - Surgical History Surgical History: Surgical History (Last Reviewed 09/10/17 @ 15:04 by MARIA D Healy) S/P ablation of atrial fibrillation (Acute) History of total right knee replacement (TKR) (Acute) Lens replaced (Acute) History of hemorrhoidectomy (Acute) Shoulder joint replacement status (Acute) History of back surgery (Acute) - Family History Family History: Family History (Last Updated 09/10/17 @ 15:05 by MARIA D Healy) Father Family history of acute myocardial infarction Son Atrial fibrillation - Tobacco History Second Hand Smoke Exposure: No Tobacco Use In Past 30 Days: No Smoking Status: Never smoker - Alcohol History How Often Do You Have a Drink Containing Alcohol: Monthly or less - Substance Use History Substance History: No History of Abuse - Travel History Recent Travel in the [place] Within the Last 8 Weeks: No Recent Travel Out of the Country Within the Last 8 Weeks: No - Immunization History Tetanus Immunization: <5 Years Hx Influenza Vaccine This Season: Yes Medications and Allergies Active Medications: Active Medications Al Hydroxide/Mg Hydroxide (Milk Of Magnesia Liq) 30 ml PO Q12H PRN PRN Reason: Mild Constipation Atorvastatin Calcium (Lipitor) 40 mg PO DAILY [facility] Last Admin: 09/05/17 08:17 Dose: 40 mg Bisacodyl (Dulcolax Supp) 10 mg RECTAL DAILY PRN PRN Reason: SEVERE CONSITIPATION Buspirone HCl (Buspar) 15 mg PO BID [facility] Last Admin: 09/05/17 08:16 Dose: 15 mg Clonidine HCl (Catapres) 0.1 mg PO Q6H PRN PRN Reason: SEE LABEL COMMENTS Cyanocobalamin (Vitamin B12) 1,000 mcg PO DAILY [facility] Last Admin: 09/05/17 08:17 Dose: 1,000 mcg Ferrous Sulfate (Ferosul) 325 mg PO DAILY [facility] Last Admin: 09/05/17 08:16 Dose: 325 mg Dextrose/Sodium Chloride (D5w/1/2 Ns Inj) 1,000 mls @ 100 mls/hr IV.CONT .Q10H [facility] Last Admin: 09/04/17 05:12 Dose: 100 mls/hr Lactulose (Lactulose Liq) 30 ml PO DAILY PRN PRN Reason: SEVERE CONSITIPATION Last Admin: 09/04/17 12:27 Dose: 30 ml Losartan Potassium (Cozaar) 50 mg PO DAILY [facility] Last Admin: 09/05/17 08:16 Dose: 50 mg Metoprolol Succinate (Toprol Xl) 50 mg PO BID [facility] Last Admin: 09/05/17 08:16 Dose: 50 mg Morphine Sulfate (Morphine Inj) 4 mg IV.PUSH Q3H PRN PRN Reason: breakthrough Last Admin: 09/05/17 04:00 Dose: 4 mg Naloxone HCl (Narcan Inj) 0.4 mg IV.PUSH UNSCH PRN PRN Reason: SEE LABEL COMMENTS Ondansetron HCl (Zofran Odt) 4 mg PO Q6H PRN PRN Reason: NAUSEA OR VOMITING Last Admin: 09/05/17 08:15 Dose: 4 mg Oxycodone/Acetaminophen (Percocet 10/325 Mg) 1 tab PO Q6H PRN PRN Reason: PAIN SCALE 6 TO 10 Last Admin: 09/05/17 08:16 Dose: 1 tab Oxycodone/Acetaminophen (Percocet 5/325 Mg) 1 tab PO Q6H PRN PRN Reason: PAIN SCALE 3 TO 5 Last Admin: 09/02/17 11:33 Dose: 1 tab Pantoprazole Sodium (Protonix Inj) 40 mg IV.PUSH BID [facility] Last Admin: 09/05/17 08:16 Dose: 40 mg Sennosides (Senokot) 17.2 mg PO Q12H PRN PRN Reason: Moderate Constipation Sodium Chloride (Ns Flush) 2 ml IV.FLUSH PRN PRN PRN Reason: FLUSH AFTER USING IV ACCESS Last Admin: 09/01/17 22:18 Dose: 2 ml Sodium Chloride (Ns Inj) 10 ml IRRIGATION DAILY [facility] Last Admin: 09/05/17 08:17 Dose: 10 ml Vitamin D (Vitamin D3) 2,000 unit PO DAILY [facility] Last Admin: 09/05/17 08:15 Dose: 2,000 unit Allergies Allergy/AdvReac Type Severity Reaction Status Date / Time aspirin Allergy Severe GI BLEED Verified 08/31/17 07:23 Home Medications Medication Instructions Recorded Confirmed Type alprazolam [Xanax] 0.25 mg PO QID 08/26/17 09/10/17 History buspirone 15 mg PO BID 08/26/17 09/10/17 History calcium carbonate [Calcium 600] 600 mg PO BID 08/26/17 09/10/17 History cholecalciferol (vitamin D3) 2,000 unit PO DAILY 08/26/17 09/10/17 History [Vitamin D3] cranberry extract 500 mg PO BID 08/26/17 09/10/17 History cyanocobalamin-cobamamide [B12] 1,000 mg SUBLINGUAL DAILY 08/26/17 09/10/17 History ferrous sulfate [iron] 65 mg PO DAILY 08/26/17 09/10/17 History losartan 50 mg PO DAILY 08/26/17 09/10/17 History lubiprostone [Amitiza] 8 mcg PO BID 08/26/17 09/10/17 History mirabegron [Myrbetriq] 25 mg PO DAILY 08/26/17 09/10/17 History omega 9-hwn-ymo-fish oil [[place]-3] 500 mg PO DAILY 08/26/17 09/10/17 History omeprazole 40 mg PO DAILY 08/26/17 09/10/17 History oxycodone 10 mg PO Q4-6H PRN 08/26/17 09/10/17 History rivaroxaban [Xarelto] 20 mg PO DAILY 08/26/17 09/10/17 History rosuvastatin 20 mg PO DAILY 08/26/17 09/10/17 History Exam Vital signs: Vital Signs 09/04/17 12:00 09/04/17 14:52 09/04/17 16:00 Temperature 98.1 F 98.6 F Pulse Rate 129 H 126 H Respiratory Rate 18 18 Blood Pressure 127/85 132/86 Pulse Oximetry 99 99 99 09/04/17 20:00 09/04/17 20:31 09/05/17 00:00 Temperature 98.1 F 98.0 F Pulse Rate 128 H 153 H Respiratory Rate 18 20 Blood Pressure 146/85 H 110/87 Pulse Oximetry 98 99 98 09/05/17 04:00 09/05/17 08:00 Temperature 98.2 F 97.7 F Pulse Rate 127 H 124 H Respiratory Rate 18 18 Blood Pressure 109/90 115/97 H Pulse Oximetry 99 99 Intake & Output 09/04/17 09/05/17 09/05/17 18:59 06:59 18:59 Output Total 1000 / 1000 510 / 510 Balance -1000 / -1000 -510 / -510 Output: Urine Amount (Catheter) 400 / 400 Indwelling Urethral Catheter 400 / 400 Gastric Drainage 210 / 210 Right Nare 210 / 210 Wound Drainage 600 / 600 300 / 300 right nephrostomy tube 600 / 600 300 / 300 Other: Bladder Irrigation Fluid - Amount Drained Indwelling Urethral Catheter 50 # Voids 2 Date of Last Bowel Movement 09/05/17 # Bowel Movements 1 - Constitutional no acute distress - Routine HEENT Exam Head: Present: normocephalic Eye: Present: PERRL - Routine Neck Exam Present: supple - Routine Respiratory Exam Present: CTA bilaterally - Routine Cardiovascular Exam Present: RRR - Routine Abdominal Exam Present: soft, tenderness - Detailed Abdominal Exam Bowel sounds: hypoactive - Routine Skin Exam Present: intact, dry - Routine Neurological Exam Present: alert, oriented X3 Results - Labs CBC & Chem 7: 09/08/17 10:55 09/09/17 09:20 Labs: Laboratory Results - last 24 hr 09/04/17 09/05/17 09/05/17 09:15 07:00 07:00 WBC 8.0 RBC 2.71 L Hgb 8.7 L Hct 25.0 L MCV 92.2 MCH 32.1 MCHC 34.8 RDW 14.3 Plt Count 267 MPV 9.8 Sodium 132 L 133 L Potassium 3.5 3.3 L Chloride 98 97 L Carbon Dioxide 25.7 25.0 Anion Gap 8 11 BUN 8 5 L Creatinine 0.79 0.64 Estimated GFR 70 L 89 Random Glucose 129 H 128 H Calcium 8.1 L 8.2 L Assessment and Plan - Plan - Persistent ileus/constipation, no bm X 11 days despite bowel regimen and fleet enema. CT a/p: Slight dilatation of loops of large bowel particularly transverse colon measures 6.4 cm due to some degree of colonic ileus. There is moderate amount of stool throughout the colon. Abdominal x-ray from September 03, 2017 showed continued reduction in the colonic air distention seen previously characteristic of an improving hypodynamic ileus. No pneumoperitoneum identified in the supine series. Patient has still not had a bowel movement but is passing flatus but minimal. Pt has NGT to LIWS in place. - Anemia- no obvious GI bleed, likely due to kidney issues - Dilated CBD present since 2014 but more dilated on this study. no etiology found, LFTs wnl - Chronic Right ureter obstruction s/p nephrostomy tube placement by IR on who presents to the ED due to worsening Right sided abdominal and back pain, urology on the case. - A. fib on Xarelto on (hold) Plan: - NPO - cont. NGT to LIWS - Trial of Relistor - Add miralax - Trial of golytely - Might need decompressive colonoscopy - KUB in the am - Consider MRCP at some point if able - cont. bowel regimen - Supportive care - Pt seen and examined by Dr. Stoddard and myself and this note is written on his behalf.
--- NOTE | 2017-09-05 12:09 | P.PNFP ---
Subjective Interval history: Patient seen and examined at this morning. Overnight patient was tachycardic and received a one-time dose of immediate release metoprolol 50 mg. Patient had minimal minimal output from NG tube. Pain is well controlled, abdomen is less distended patient is passing gas. <Karli Guevara - 09/05/17 13:12> Results - Labs Result diagrams: 09/05/17 07:00 09/05/17 07:00 <Elen Rasmussen - 09/05/17 13:27> Abnormal lab results 09/05/17 09/05/17 Range/Units 07:00 07:00 RBC 2.71 L (4.00-5.30) mil/mm3 Hgb 8.7 L (11.6-15.3) gm/dL Hct 25.0 L (35.0-46.0) % Sodium 133 L (136-145) meq/L Potassium 3.3 L (3.5-5.1) meq/L Chloride 97 L (98-107) meq/L BUN 5 L (7-18) mg/dL Random Glucose 128 H (74-106) mg/dL Calcium 8.2 L (8.5-10.1) mg/dL Short CBC 09/05/17 Range/Units 07:00 WBC 8.0 (4.0-11.0) th/mm3 Hgb 8.7 L (11.6-15.3) gm/dL Hct 25.0 L (35.0-46.0) % Plt Count 267 (150-450) th/mm3 BMP 09/05/17 07:00 Sodium 133 L Potassium 3.3 L Chloride 97 L Carbon Dioxide 25.0 BUN 5 L Creatinine 0.64 Calcium 8.2 L <Elen Rasmussen - 09/05/17 13:27> Abnormal lab results 09/05/17 09/05/17 Range/Units 07:00 07:00 RBC 2.71 L (4.00-5.30) mil/mm3 Hgb 8.7 L (11.6-15.3) gm/dL Hct 25.0 L (35.0-46.0) % Sodium 133 L (136-145) meq/L Potassium 3.3 L (3.5-5.1) meq/L Chloride 97 L (98-107) meq/L BUN 5 L (7-18) mg/dL Random Glucose 128 H (74-106) mg/dL Calcium 8.2 L (8.5-10.1) mg/dL Short CBC 09/05/17 Range/Units 07:00 WBC 8.0 (4.0-11.0) th/mm3 Hgb 8.7 L (11.6-15.3) gm/dL Hct 25.0 L (35.0-46.0) % Plt Count 267 (150-450) th/mm3 BMP 09/05/17 07:00 Sodium 133 L Potassium 3.3 L Chloride 97 L Carbon Dioxide 25.0 BUN 5 L Creatinine 0.64 Calcium 8.2 L <Karli Guevara - 09/05/17 12:08> Physical Exam Vital signs: Vital Signs 09/04/17 14:52 09/04/17 16:00 09/04/17 20:00 Temperature 98.6 F 98.1 F Pulse Rate 126 H 128 H Respiratory Rate 18 18 Blood Pressure 132/86 146/85 H Pulse Oximetry 99 99 98 09/04/17 20:31 09/05/17 00:00 09/05/17 04:00 Temperature 98.0 F 98.2 F Pulse Rate 153 H 127 H Respiratory Rate 20 18 Blood Pressure 110/87 109/90 Pulse Oximetry 99 98 99 09/05/17 08:00 Temperature 97.7 F Pulse Rate 124 H Respiratory Rate 18 Blood Pressure 115/97 H Pulse Oximetry 99 Intake & Output 09/04/17 09/05/17 09/05/17 18:59 06:59 18:59 Output Total 1000 / 1000 510 / 510 Balance -1000 / -1000 -510 / -510 Output: Urine Amount (Catheter) 400 / 400 Indwelling Urethral Catheter 400 / 400 Gastric Drainage 210 / 210 Right Nare 210 / 210 Wound Drainage 600 / 600 300 / 300 right nephrostomy tube 600 / 600 300 / 300 Other: Bladder Irrigation Fluid - Amount Drained Indwelling Urethral Catheter 50 # Voids 2 Date of Last Bowel Movement 09/05/17 # Bowel Movements 1 <Elen Rasmussen - 09/05/17 13:27> Vital Signs 09/04/17 14:52 09/04/17 16:00 09/04/17 20:00 Temperature 98.6 F 98.1 F Pulse Rate 126 H 128 H Respiratory Rate 18 18 Blood Pressure 132/86 146/85 H Pulse Oximetry 99 99 98 09/04/17 20:31 09/05/17 00:00 09/05/17 04:00 Temperature 98.0 F 98.2 F Pulse Rate 153 H 127 H Respiratory Rate 20 18 Blood Pressure 110/87 109/90 Pulse Oximetry 99 98 99 09/05/17 08:00 Temperature 97.7 F Pulse Rate 124 H Respiratory Rate 18 Blood Pressure 115/97 H Pulse Oximetry 99 Intake & Output 09/04/17 09/05/17 09/05/17 18:59 06:59 18:59 Output Total 1000 / 1000 510 / 510 Balance -1000 / -1000 -510 / -510 Output: Urine Amount (Catheter) 400 / 400 Indwelling Urethral Catheter 400 / 400 Gastric Drainage 210 / 210 Right Nare 210 / 210 Wound Drainage 600 / 600 300 / 300 right nephrostomy tube 600 / 600 300 / 300 Other: Bladder Irrigation Fluid - Amount Drained Indwelling Urethral Catheter 50 # Voids 2 Date of Last Bowel Movement 09/05/17 # Bowel Movements 1 <IsmaelShellyKarli 09/05/17 12:08> - Constitutional no acute distress <CalzadoShellyKarli D 09/05/17 13:12> - Routine HEENT Exam Head: Present: normocephalic <CalzadoKarli 09/05/17 13:12> Eye: Present: EOMI, PERRL <CalzadoKarli 09/05/17 13:12> ENT: Present: mucous membranes moist <CalmarydoKarli D 09/05/17 13:12> - Routine Neck Exam Present: supple, full ROM. Absent: JVD <CalzadoShellyKarli D 09/05/17 13:12> - Routine Respiratory Exam Absent: accessory muscle use, CTA bilaterally <CalzadoShellyKarli D 09/05/17 13: 12> - Routine Cardiovascular Exam Present: RRR, S1, S2. Absent: murmur, gallop, rubs <CalmarydoKarli D 13:12> - Routine Abdominal Exam Present: soft, normoactive bowel sounds. Absent: distended (improved), rebound , guarding <Karli Guevara D - 09/05/17 13:12> - Routine Extremities Exam Present: full ROM, pulses intact, normal capillary refill. Absent: cyanosis, clubbing, edema <Karli Guevara D - 09/05/17 13:12> - Routine Skin Exam Present: intact <Karli Guevara D - 09/05/17 13:12> - Routine Neurological Exam Present: alert, oriented X3, CN II-XII intact. Absent: sensory deficit < Karli Guevara D - 09/05/17 13:12> - Urinary Catheter Management Indwelling Urethral Catheter Cath placed during this visit: no <Elen Rasmussen - 09/05/17 13:27> yes <Karli Guevara D - 09/05/17 13:12> Reason for continuing: Chronic Urinary Retention <Karli Guevara D - 09/05/17 12:08> Insertion date: 08/31/17 <Karli Guevara D 09/05/17 12:08> Insertion time: 11:00 <Karli Guevara D 09/05/17 12:08> Assessment and Plan - Assessment (1) Ureteral obstruction, right Code(s): N13.5 - Crossing vessel and stricture of ureter without hydronephrosis Status: Acute (2) Anemia Code(s): D64.9 - Anemia, unspecified Status: Resolved (3) Ileus Code(s): K56.7 - Ileus, unspecified Status: Acute (4) Atrial fibrillation Code(s): I48.91 - Unspecified atrial fibrillation Status: Chronic (5) Hypertension Code(s): I10 - Essential (primary) hypertension Status: Chronic (6) Sleep apnea Code(s): G47.30 - Sleep apnea, unspecified Status: Chronic (7) Arthritis Code(s): M19.90 - Unspecified osteoarthritis, unspecified site Status: Acute (8) Anxiety Code(s): F41.9 - Anxiety disorder, unspecified Status: Acute (9) GERD (gastroesophageal reflux disease) Code(s): K21.9 - Gastro-esophageal reflux disease without esophagitis Status: Acute (10) Nutrition, metabolism, and development symptoms Code(s): R63.8 - Other symptoms and signs concerning food and fluid intake Status: Acute <Elen Rasmussen - 09/05/17 13:27> (1) Ureteral obstruction, right Code(s): N13.5 - Crossing vessel and stricture of ureter without hydronephrosis Status: Acute Plan: Patient with history of Right hydronephrosis of unknown origin with obstruction at UVJ. She underwent a right nephrostomy placement on 08/26/17 by IR. Patient follows with her urologist Dr. Minaya. She presented to the ED with complaints of worsening right-sided abdominal and back pain associated with nausea and increased hematuria. Of note: Dr. 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 -In the ED CT scan abdomen pelvis showed: Worsening hydronephrotic sac in the right kidney with significant dilation of the right renal pelvis and hemorrhage within it compared to prior study from 08/26/2017. There is moderate amount of stool throughout the colon. UA negative for infection however urine positive for blood. Patient status post new 10 [place] tube placed via IR on September 02, 2017. Currently draining a mix of urine and blood. Abdominal x-ray on August showed stable position of the nasogastric and right nephrostomy tubes. Stable elevation of the right hemidiaphragm. No pneumoperitoneum identified on the supine series. H&H has remained stable . - Monitor nephrostomy drainage - Monitor vitals - Monitor CBC - Pain management: Percocet per pain scale morphine Q3h for breakthrough pain discontinued today. - PPI 40mg BID -monitor I/Os (2) Anemia Code(s): D64.9 - Anemia, unspecified Status: Resolved Plan: H\H currently stable at 8.7/25 this morning and stable. -Continue to monitor H/H -Transfuse if hemoglobin falls below 7 -Continue with Protonix 40mg IV BID -Consider Gi consult if patient begins to have drop in H&H (3) Ileus Code(s): K56.7 - Ileus, unspecified Status: Acute Plan: CT a/p: Slight dilatation of loops of large bowel particularly transverse colon measures 6.4 cm due to some degree of colonic ileus. There is moderate amount of stool throughout the colon. Patient continues to be constipated with last bowel movement over 4 days ago. Upon examination abdomen is tense and distended but less so than yesterday and had no pain upon palpation. Bowel sounds were active throughout the abdomen in all 4 quadrants. Abdominal x-ray from September 03, 2017 showed continued reduction in the colonic air distention seen previously characteristic of an improving hypodynamic ileus. No pneumoperitoneum identified in the supine series. Patient has still not had a bowel movement but is passing flatus. Abdominal pain and distention improved today on exam. - patient with minimal NG tube output overnight - NG tube to be removed today and diet to be advanced clear liquids - Bowel constipation regimen - Consider consulting general surgery for further management of ileus is no improvement (4) Atrial fibrillation Code(s): I48.91 - Unspecified atrial fibrillation Status: Chronic Plan: Patient with history atrial fibrillation on Xarelto 50 mg twice daily. Patient with tachycardia overnight. Patient reports being asymptomatic and not feeling any flutter, palpitations, or racing heart. On telemetry there were no arrhythmias noted. Heart rate today at 120s. - Xarelto on hold due to risk of bleeding - Patient placed on telemetry - Explained that the Xarelto would need to be held despite the increased risk of stroke as her problems of bleeding were of an urgent nature at this time - metoprolol increased to 50 mg BID (5) Hypertension Code(s): I10 - Essential (primary) hypertension Status: Chronic Plan: blood pressure stable - Continue to monitor (6) Sleep apnea Code(s): G47.30 - Sleep apnea, unspecified Status: Chronic Plan: Patient with history of sleep apnea. She uses CPAP at night. c/w CPAP (7) Arthritis Code(s): M19.90 - Unspecified osteoarthritis, unspecified site Status: Acute Plan: Patient reports she uses oxycodone 10 for her arthritic pain control. Patient currently on pain scale for abdominal pain (8) Anxiety Code(s): F41.9 - Anxiety disorder, unspecified Status: Acute Plan: Continue with home medications (9) GERD (gastroesophageal reflux disease) Code(s): K21.9 - Gastro-esophageal reflux disease without esophagitis Status: Acute Plan: Patient placed on Protonix 40 mg twice daily (10) Nutrition, metabolism, and development symptoms Code(s): R63.8 - Other symptoms and signs concerning food and fluid intake Status: Acute Plan: Fluids: 1/2 NS with D5 @ 100mls/hr Electrolytes: Replete as needed Nutrition: N.p.o. DVT prophylaxis: SCDs GI ppx: protonix BID <Karli Guevara D - 09/05/17 12:48> - Attending Attestation The exam, history, and the medical decision-making described in the above note were completed with the assistance of the resident physician. I reviewed and agree with the findings presented. I attest that I had a [id number] encounter with the patient on the same day, and personally performed and documented my assessment and findings in the medical record. For days she has been reluctant to have her NG tube removed. However on review she is only had less than 250 cc coming out of the NG tube in 24 hours. It does need to be pulled. She also expressed to me yesterday that she is having some depressed feelings with all of the current chronic illness she has been through and she is sad that her family has not been to visit. Agree with attack with cutting down and starting to eliminate her narcotics particularly IV. <Elen Rasmussen - 09/05/17 13:27> <Karli Guevara D - Last Filed: 09/05/17 12:48> (6) Sleep apnea Qualifiers: Sleep apnea type: obstructive Qualified Code(s): G47.33 - Obstructive sleep apnea (adult) (pediatric) (9) GERD (gastroesophageal reflux disease) Qualifiers: Esophagitis presence: esophagitis presence not specified Qualified Code(s): K21.9 - Gastro-esophageal reflux disease without esophagitis <Elen Rasmussen - Last Filed: 09/05/17 13:27> (6) Sleep apnea Qualifiers: Sleep apnea type: obstructive Qualified Code(s): G47.33 - Obstructive sleep apnea (adult) (pediatric) (9) GERD (gastroesophageal reflux disease) Qualifiers: Esophagitis presence: esophagitis presence not specified Qualified Code(s): K21.9 - Gastro-esophageal reflux disease without esophagitis <Karli Guevara D - Last Filed: 09/05/17 12:48> (6) Sleep apnea Qualifiers: Sleep apnea type: obstructive Qualified Code(s): G47.33 - Obstructive sleep apnea (adult) (pediatric) (9) GERD (gastroesophageal reflux disease) Qualifiers: Esophagitis presence: esophagitis presence not specified Qualified Code(s): K21.9 - Gastro-esophageal reflux disease without esophagitis <Elen Rasmussen M - Last Filed: 09/05/17 13:27> (6) Sleep apnea Qualifiers: Sleep apnea type: obstructive Qualified Code(s): G47.33 - Obstructive sleep apnea (adult) (pediatric) (9) GERD (gastroesophageal reflux disease) Qualifiers: Esophagitis presence: esophagitis presence not specified Qualified Code(s): K21.9 - Gastro-esophageal reflux disease without esophagitis
[2017-09-05] MEDS: Polyethylene Glycol 3350 17 GM Packet PO SCH (13:23)
[2017-09-05] MEDS: Methylnaltrexone Inj 12 MG/0.6 ML Vial SQ SCH (14:34)
[2017-09-05] MEDS ORDERED: PEG 3350/E-Lyte Soln 4000 ML Bottle PO ONE (15:30)
--- NOTE | 2017-09-05 17:17 | XR ---
EXAM DATE: 09/05/2017 5:11 PM EDT AGE/SEX: 82 years / Female INDICATIONS: Constipation. CLINICAL DATA: This is the patient's subsequent encounter. Patient reports that signs and symptoms h ave been present for 1 week and indicates a pain score of 5/10. MEDICAL/SURGICAL HISTORY: . Cardiovascular disease. Gastroesophageal reflux disease. Hypertensi on. . Hemorrhoidectomy. Hernia repair Right nephrostomy tube. COMPARISON: [facility] – [place], ABDOMEN [place], 09/03/2017. . FINDINGS: Percutaneous pigtail catheter in the right flank. No dilated loops of small or large bowel. Moderate degenerative changes throughout the lumbar spine with left lumbar scoliosis. The visualized lower henrietta ngs are clear. Multiple phleboliths in the pelvis. Mild elevation right hemidiaphragm. CONCLUSION: No dilated loops of small or large bowel. Electronically signed by: Gideon Cam MD 09/05/2017 5:16 PM EDT
[2017-09-05] MEDS: Dextrose 5%/NaCl 0.45% Inj 1,000 ML IV.CONT SCH (21:03)
[2017-09-05] MEDS: ALPRAZolam 0.25 MG Tablet PO PRN (23:52)
[2017-09-06] MEDS: oxyCODONE/Acetaminophen 10/325 Tablet PO PRN ×4 (01:43→21:00)
[2017-09-06] MEDS: Ferrous Sulfate 325 MG Tablet PO SCH (08:32)
[2017-09-06] MEDS: Pantoprazole Inj 40 MG Vial IV.PUSH SCH ×2 (08:33→21:01)
[2017-09-06] MEDS: Methylnaltrexone Inj 12 MG/0.6 ML Vial SQ SCH (08:33)
[2017-09-06] MEDS: Polyethylene Glycol 3350 17 GM Packet PO SCH (08:35)
--- NOTE | 2017-09-06 10:22 | P.PNFP ---
Subjective Interval history: Ms Cantor feels vastly improved today after 3 bowel movements. Discussed with her that she needs to get rid of her urinary catheter and get up out of bed. She wants to advance her diet. Her abdomen is soft and she has no other complaints. Results - Labs Result diagrams: 09/06/17 12:40 09/05/17 07:00 - Imaging Impressions Abdomen X-Ray 09/05/17 00:00 CONCLUSION: No dilated loops of small or large bowel. Physical Exam Vital signs: Vital Signs 09/05/17 12:00 09/05/17 16:00 09/05/17 20:00 Temperature 98.1 F 97.4 F L 98.3 F Pulse Rate 130 H 115 H 125 H Respiratory Rate 18 18 18 Blood Pressure 110/84 138/76 140/94 H Pulse Oximetry 98 98 98 09/05/17 21:43 09/05/17 23:27 09/06/17 00:00 Temperature 98.1 F Pulse Rate 153 H 127 H 127 H Respiratory Rate 18 18 Blood Pressure 129/104 H 136/114 H 136/108 H Pulse Oximetry 95 97 09/06/17 04:00 09/06/17 08:00 Temperature 97.8 F 98.1 F Pulse Rate 77 84 Respiratory Rate 16 18 Blood Pressure 118/80 123/71 Pulse Oximetry 100 100 Intake & Output 09/05/17 09/06/17 09/06/17 18:59 06:59 18:59 Intake Total 240 / 240 Output Total 600 / 600 850 / 850 Balance -600 / -600 -610 / -610 Weight 90 kg Intake: Oral 240 / 240 Output: Urine Amount (Catheter) 600 / 600 400 / 400 Indwelling Urethral Catheter 600 / 600 400 / 400 Wound Drainage 450 / 450 right nephrostomy tube 450 / 450 Other: # Incontinent Bowel Movements 4 - Constitutional no acute distress, average body habitus, cooperative - Routine HEENT Exam Head: Present: normocephalic, atraumatic. Absent: abrasion, laceration, hematoma Eye: Present: EOMI. Absent: conjunctival icterus, scleral injection, nystagmus ENT: Present: mucous membranes moist. Absent: septal deviation - Routine Neck Exam Present: full ROM. Absent: swelling, tracheal deviation - Routine Respiratory Exam Present: CTA bilaterally. Absent: accessory muscle use, prolonged expiratory phase, rales, respiratory distress, rhonchi - Routine Cardiovascular Exam Present: RRR. Absent: bradycardia, tachycardia, irregular rhythm, irregularly irregular - Routine Abdominal Exam Present: soft. Absent: tenderness, distended, rebound, guarding, firm, rigid, organomegaly - Routine Extremities Exam Absent: cyanosis, clubbing, edema, full ROM, calf tenderness - Routine Skin Exam Present: intact, normal turgor. Absent: jaundice - Routine Neurological Exam Present: alert, oriented X3. Absent: normal speech - Routine Psychiatric Exam Present: normal affect, good insight, good judgment - Urinary Catheter Management Indwelling Urethral Catheter Cath placed during this visit: yes Reason for continuing: Chronic Urinary Retention Insertion date: 08/31/17 Insertion time: 11:00 Assessment and Plan - Assessment (1) Ureteral obstruction, right Code(s): N13.5 - Crossing vessel and stricture of ureter without hydronephrosis Status: Acute Plan: Patient with history of Right hydronephrosis of unknown origin with obstruction at UVJ. She underwent a right nephrostomy placement on 08/26/17 by IR. Patient follows with her urologist Dr. Minaya. She presented to the ED with complaints of worsening right-sided abdominal and back pain associated with nausea and increased hematuria. Of note: Dr. 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 -In the ED CT scan abdomen pelvis showed: Worsening hydronephrotic sac in the right kidney with significant dilation of the right renal pelvis and hemorrhage within it compared to prior study from 08/26/2017. There is moderate amount of stool throughout the colon. UA negative for infection however urine positive for blood. Patient status post new 10 Finnish tube placed via IR on September 02, 2017. Currently draining a mix of urine and blood. Abdominal x-ray on August showed stable position of the nasogastric and right nephrostomy tubes. Stable elevation of the right hemidiaphragm. No pneumoperitoneum identified on the supine series. H&H has remained stable . - Monitor nephrostomy drainage, clearing up today - Monitor vitals - Monitor CBC - Pain management: Percocet per pain scale morphine Q3h for breakthrough pain discontinued today. - PPI 40mg BID -monitor I/Os (2) Anemia Code(s): D64.9 - Anemia, unspecified Status: Resolved Plan: H\H currently stable at 8.7/25 this morning and stable. -Continue to monitor H/H -Transfuse if hemoglobin falls below 7 -Continue with Protonix 40mg IV BID -Consider Gi consult if patient begins to have drop in H&H probably due to loss of blood from kidney (3) Atrial fibrillation Code(s): I48.91 - Unspecified atrial fibrillation Status: Chronic Plan: Patient with history atrial fibrillation on Xarelto 50 mg twice daily. Patient with tachycardia overnight. Patient reports being asymptomatic and not feeling any flutter, palpitations, or racing heart. On telemetry there were no arrhythmias noted. Heart rate today at 120s. - Xarelto on hold due to risk of bleeding. can consider restarting as her bleeding is greatly improved - Patient placed on telemetry - Explained that the Xarelto would need to be held despite the increased risk of stroke as her problems of bleeding were of an urgent nature at this time - metoprolol increased to 50 mg BID. can continue to adjust as needed she still gets tacycardic at times and has anxiety and her benzo was restarted (4) Hypertension Code(s): I10 - Essential (primary) hypertension Status: Chronic Plan: blood pressure stable - Continue to monitor (5) Sleep apnea Code(s): G47.30 - Sleep apnea, unspecified Status: Chronic Plan: Patient with history of sleep apnea. She uses CPAP at night. c/w CPAP (6) Arthritis Code(s): M19.90 - Unspecified osteoarthritis, unspecified site Status: Acute Plan: Patient reports she uses oxycodone 10 for her arthritic pain control as an outpt Patient was currently on pain scale for abdominal pain (7) Anxiety Code(s): F41.9 - Anxiety disorder, unspecified Status: Acute Plan: Continue with home medications (8) GERD (gastroesophageal reflux disease) Code(s): K21.9 - Gastro-esophageal reflux disease without esophagitis Status: Acute Plan: Patient placed on Protonix 40 mg twice daily (9) Nutrition, metabolism, and development symptoms Code(s): R63.8 - Other symptoms and signs concerning food and fluid intake Status: Acute Plan: Fluids: 1/2 NS with D5 @ 100mls/hr Electrolytes: Replete as needed Nutrition: N.p.o. DVT prophylaxis: SCDs GI ppx: protonix BID - Assessment and Plan Discharge Planning: she is improving now with her kidney and ileus is gone. will think about rehab (2) Anemia Qualifiers: Anemia type: iron 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) (4) Hypertension Qualifiers: Hypertension type: essential hypertension Qualified Code(s): I10 - Essential (primary) hypertension (5) Sleep apnea Qualifiers: Sleep apnea type: obstructive Qualified Code(s): G47.33 - Obstructive sleep apnea (adult) (pediatric) (8) GERD (gastroesophageal reflux disease) Qualifiers: Esophagitis presence: esophagitis presence not specified Qualified Code(s): K21.9 - Gastro-esophageal reflux disease without esophagitis
--- NOTE | 2017-09-06 10:27 | P.PNGI ---
Subjective Interval history: Pt reports two large BMs yesterday and one today. Denies any abdominal pain. Some mild nausea, no emesis. Diet now advanced but at the time she ordered breakfast she was still on liquid diet. <Nika Moreau - Last Filed: 09/06/17 10:23> Physical Exam Vital signs: Vital Signs 09/05/17 12:00 09/05/17 16:00 09/05/17 20:00 Temperature 98.1 F 97.4 F L 98.3 F Pulse Rate 130 H 115 H 125 H Respiratory Rate 18 18 18 Blood Pressure 110/84 138/76 140/94 H Pulse Oximetry 98 98 98 09/05/17 21:43 09/05/17 23:27 09/06/17 00:00 Temperature 98.1 F Pulse Rate 153 H 127 H 127 H Respiratory Rate 18 18 Blood Pressure 129/104 H 136/114 H 136/108 H Pulse Oximetry 95 97 09/06/17 04:00 09/06/17 08:00 Temperature 97.8 F 98.1 F Pulse Rate 77 84 Respiratory Rate 16 18 Blood Pressure 118/80 123/71 Pulse Oximetry 100 100 Intake & Output 09/05/17 09/06/17 09/06/17 18:59 06:59 18:59 Intake Total 240 / 240 Output Total 600 / 600 850 / 850 Balance -600 / -600 -610 / -610 Weight 90 kg Intake: Oral 240 / 240 Output: Urine Amount (Catheter) 600 / 600 400 / 400 Indwelling Urethral Catheter 600 / 600 400 / 400 Wound Drainage 450 / 450 right nephrostomy tube 450 / 450 Other: # Incontinent Bowel Movements 4 - Constitutional no acute distress - Routine HEENT Exam Head: Present: normocephalic, atraumatic - Routine Respiratory Exam Absent: accessory muscle use - Routine Abdominal Exam Present: soft, normoactive bowel sounds. Absent: tenderness - Routine Skin Exam Present: dry, warm - Routine Neurological Exam Present: alert, oriented X3 - Urinary Catheter Management Indwelling Urethral Catheter Cath placed during this visit: yes Reason for continuing: Chronic Urinary Retention Insertion date: 08/31/17 Insertion time: 11:00 <Nika Moreau - Last Filed: 09/06/17 10:23> Vital signs: Vital Signs 09/05/17 16:00 09/05/17 20:00 09/05/17 21:43 Temperature 97.4 F L 98.3 F Pulse Rate 115 H 125 H 153 H Respiratory Rate 18 18 18 Blood Pressure 138/76 140/94 H 129/104 H Pulse Oximetry 98 98 95 09/05/17 23:27 09/06/17 00:00 09/06/17 04:00 Temperature 98.1 F 97.8 F Pulse Rate 127 H 127 H 77 Respiratory Rate 18 16 Blood Pressure 136/114 H 136/108 H 118/80 Pulse Oximetry 97 100 09/06/17 08:00 Temperature 98.1 F Pulse Rate 84 Respiratory Rate 18 Blood Pressure 123/71 Pulse Oximetry 100 Intake & Output 09/05/17 09/06/17 09/06/17 18:59 06:59 18:59 Intake Total 240 / 240 Output Total 600 / 600 850 / 850 Balance -600 / -600 -610 / -610 Weight 90 kg Intake: Oral 240 / 240 Output: Urine Amount (Catheter) 600 / 600 400 / 400 Indwelling Urethral Catheter 600 / 600 400 / 400 Wound Drainage 450 / 450 right nephrostomy tube 450 / 450 Other: # Incontinent Bowel Movements 4 - Urinary Catheter Management Indwelling Urethral Catheter Cath placed during this visit: no <Justin Johnson - Last Filed: 09/06/17 12:54> Results - Labs CBC & Chem 7: 09/05/17 07:00 09/05/17 07:00 Microbiology 08/31/17 12:18 Blood - Peripheral Aerobic Blood Culture - Final No growth in 5 days 08/31/17 12:18 Blood - Peripheral Anaerobic Blood Culture - Final No growth in 5 days 08/31/17 12:18 Blood - Peripheral Aerobic Blood Culture - Final No growth in 5 days 08/31/17 12:18 Blood - Peripheral Anaerobic Blood Culture - Final No growth in 5 days - Imaging Impressions Abdomen X-Ray 09/05/17 00:00 CONCLUSION: No dilated loops of small or large bowel. <Nika Moreau - Last Filed: 09/06/17 10:23> - Labs CBC & Chem 7: 09/06/17 12:40 09/05/17 07:00 Laboratory Results - last 24 hr 09/06/17 12:40 WBC 8.1 RBC 2.77 L Hgb 8.7 L Hct 25.9 L MCV 93.5 MCH 31.3 MCHC 33.5 RDW 14.8 Plt Count 292 MPV 8.6 Microbiology 08/31/17 12:18 Blood - Peripheral Aerobic Blood Culture - Final No growth in 5 days 08/31/17 12:18 Blood - Peripheral Anaerobic Blood Culture - Final No growth in 5 days 08/31/17 12:18 Blood - Peripheral Aerobic Blood Culture - Final No growth in 5 days 08/31/17 12:18 Blood - Peripheral Anaerobic Blood Culture - Final No growth in 5 days - Imaging Impressions Abdomen X-Ray 09/05/17 00:00 CONCLUSION: No dilated loops of small or large bowel. <Justin Johnson - Last Filed: 09/06/17 12:54> Assessment and Plan - Plan - Persistent ileus/constipation, no bm X 11 days despite bowel regimen and fleet enema. CT a/p: Slight dilatation of loops of large bowel particularly transverse colon measures 6.4 cm due to some degree of colonic ileus. There is moderate amount of stool throughout the colon. Abdominal x-ray from September 03, 2017 showed continued reduction in the colonic air distention seen previously characteristic of an improving hypodynamic ileus. No pneumoperitoneum identified in the supine series. Patient has still not had a bowel movement but is passing flatus but minimal. Pt has NGT to LIWS in place. - Anemia- no obvious GI bleed, likely due to kidney issues - Dilated CBD present since 2014 but more dilated on this study. no etiology found, LFTs wnl - Chronic Right ureter obstruction s/p nephrostomy tube placement by IR on who presents to the ED due to worsening Right sided abdominal and back pain, urology on the case. - A. fib on Xarelto on (hold) (09/06) Pt with two large BMs yesterday and one today. Reports significant improvement in symptoms. Denies abdominal pain. Reports some very mild nausea but denies emesis. Diet has been advanced. Plan: - Continue bowel regimen especially while pt is on pain medication - Encourage activity - [facility] - GI will sign off, reconsult as needed - Have pt follow up with GI after DC Pt has been seen and examined by myself and Dr. Johnson and this note is written on his behalf <Nika Moreau - Last Filed: 09/06/17 10:23> - Attending Attestation Patient seen and examined Agree with above Continue with current supportive care Monitor labs Continue with bowel regimen Patient to follow-up with GI post discharge We will sign off <Justin Johnson - Last Filed: 09/06/17 12:54>
[2017-09-06 12:53] LABS: Hematocrit 25.9 % (35.0-46.0); Hemoglobin 8.7 gm/dL (11.6-15.3); Mean Corpuscular HGB Conc 33.5 % (32.0-36.0); Mean Corpuscular Hemoglobin 31.3 pg (27.0-34.0); Mean Corpuscular Volume 93.5 fL (80.0-100.0); Mean Platelet Volume 8.6 fL (7.0-11.0); Platelet Count 292 th/mm3 (150-450); Red Blood Count 2.77 mil/mm3 (4.00-5.30); Red Cell Distribution Width 14.8 % (11.6-17.2); White Blood Count 8.1 th/mm3 (4.0-11.0)
[2017-09-06 13:09] LABS: Calcium 8.2 mg/dL (8.5-10.1); Carbon Dioxide 25.7 meq/L (21.0-32.0)
[2017-09-06] MEDS: ALPRAZolam 0.25 MG Tablet PO PRN ×2 (16:36→22:18)
--- NOTE | 2017-09-06 18:46 | P.PNADD ---
Addendum to Inpatient Note Reason for Addendum: Additional Documentation (Off service transfer of care) Additional information: Patient is a 82-year-old female with past medical history of A. fib on Xarelto, rheumatoid arthritis and chronic right ureter obstruction s/p nephrostomy tube placement by IR on 08/26/17 who presented to the ED on August 31, 2017 due to worsening right sided abdominal and back pain. Patient reported that pain had been constant since urology procedure however is gotten progressively worse. Patient also reported worsening hematuria from nephrostomy bag and that last bowel movement was 4 days before admission. In the ED CT scan abdomen pelvis showed: Worsening hydronephrotic sac in the right kidney with significant dilation of the right renal pelvis and hemorrhage within it compared to prior study from 08/26/2017. Slight dilatation of loops of large bowel particularly transverse colon measures 6.4 cm due to some degree of colonic ileus. There is moderate amount of stool throughout the colon. An NG tube was placed, urinary catheter, patient was put on n.p.o., urology was consulted and patient was admitted for right flank pain. At the time of her admission patient had no white count and was anemic with a H/H of 8.7/25.4. She was also found to be s lightly hyponatremic with a sodium of 132, a BUN of 13, and a creatinine of 1.03. During her hospital course the patient underwent a procedure by interventional radiology in which her right nephrostomy tube was replaced with a 10 [place] tube. The patient tolerated this procedure well. During her hospital course patient had several episodes of tachycardia ranging in the 150s , patient was asymptomatic. Her metoprolol dosage was changed from 50 daily to 50 twice daily. While inpatient the patient's presumptive ileus/constipation continued. Several abdominal images showed continuing improvement of her bowels. She had normal bowel sounds throughout her stay. On September 05, 2017 GI was consulted the patient was put on GoLYTELY as well as MiraLAX. In the next day patient had several bowel movements. Her NG tube was removed, her IV fluids were stopped, and patient resumed a normal diet. Patient's nephrostomy tube is still currently draining dark blood. Plan: -Continue to monitor I's and O's -Monitor nephrostomy output -Monitor heart rate, if patient becomes symptomatic from her tachycardia due to A. fib consider metoprolol drip in the cardiac ICU -Follow-up with urology for possible discharge
[2017-09-07] MEDS: oxyCODONE/Acetaminophen 10/325 Tablet PO PRN ×3 (03:16→15:48)
[2017-09-07 08:58] LABS: Hematocrit 28.3 % (35.0-46.0); Hemoglobin 9.6 gm/dL (11.6-15.3); Mean Corpuscular HGB Conc 34.1 % (32.0-36.0); Mean Corpuscular Hemoglobin 31.8 pg (27.0-34.0); Mean Corpuscular Volume 93.4 fL (80.0-100.0); Mean Platelet Volume 8.6 fL (7.0-11.0); Platelet Count 370 th/mm3 (150-450); Red Blood Count 3.03 mil/mm3 (4.00-5.30); Red Cell Distribution Width 14.7 % (11.6-17.2); White Blood Count 7.7 th/mm3 (4.0-11.0)
[2017-09-07] MEDS: Pantoprazole Inj 40 MG Vial IV.PUSH SCH ×2 (09:22→22:28)
[2017-09-07] MEDS: Ferrous Sulfate 325 MG Tablet PO SCH (09:23)
[2017-09-07] MEDS: Methylnaltrexone Inj 12 MG/0.6 ML Vial SQ SCH (09:24)
[2017-09-07] MEDS: Polyethylene Glycol 3350 17 GM Packet PO SCH (09:24)
[2017-09-07 09:27] LABS: Calcium 8.8 mg/dL (8.5-10.1); Carbon Dioxide 25.9 meq/L (21.0-32.0); Potassium 3.5 meq/L (3.5-5.1)
--- NOTE | 2017-09-07 10:34 | P.PNFP ---
Subjective Interval history: Patient seen and examined this morning. Patient denies any acute events overnight. Reports large bowel movement 2 days ago. No new abdominal, back pain. Believes her nephrostomy bag is clearing up. No other acute complaints today. <KayleighKarri - 09/07/17 10:34> Results - Labs Result diagrams: 09/08/17 10:55 09/09/17 09:20 <GradyElen M - 09/10/17 15:20> Abnormal lab results 09/06/17 09/06/17 09/07/17 Range/Units 12:40 12:40 08:37 RBC 2.77 L 3.03 L (4.00-5.30) mil/mm3 Hgb 8.7 L 9.6 L (11.6-15.3) gm/dL Hct 25.9 L 28.3 L (35.0-46.0) % Sodium 133 L (136-145) meq/L Potassium 3.0 L (3.5-5.1) meq/L Chloride (98-107) meq/L Estimated GFR 66 L (>89) mL/min Random Glucose 146 H (74-106) mg/dL Calcium 8.2 L (8.5-10.1) mg/dL 09/07/17 Range/Units 08:37 RBC (4.00-5.30) mil/mm3 Hgb (11.6-15.3) gm/dL Hct (35.0-46.0) % Sodium 130 L (136-145) meq/L Potassium (3.5-5.1) meq/L Chloride 96 L (98-107) meq/L Estimated GFR 55 L (>89) mL/min Random Glucose 117 H (74-106) mg/dL Calcium (8.5-10.1) mg/dL Short CBC 09/06/17 09/07/17 Range/Units 12:40 08:37 WBC 8.1 7.7 (4.0-11.0) th/mm3 Hgb 8.7 L 9.6 L (11.6-15.3) gm/dL Hct 25.9 L 28.3 L (35.0-46.0) % Plt Count 292 370 (150-450) th/mm3 [facility] 09/06/17 09/07/17 12:40 08:37 Sodium 133 L 130 L Potassium 3.0 L 3.5 Chloride 98 96 L Carbon Dioxide 25.7 25.9 BUN 8 9 Creatinine 0.83 0.97 Calcium 8.2 L 8.8 <Triston Victor - 09/07/17 10:34> - Imaging Impressions Ureteral Stent Placement 09/02/17 00:00 CONCLUSION: <Elen Rasmussen - 09/10/17 15:20> Physical Exam Vital signs: Vital Signs 09/09/17 15:45 09/09/17 16:00 09/09/17 20:00 Temperature 98.4 F 97.7 F Pulse Rate 102 H 122 H 124 H Respiratory Rate 14 20 Blood Pressure 119/86 121/82 Pulse Oximetry 99 99 09/09/17 23:37 09/10/17 00:00 09/10/17 04:00 Temperature 98.4 F Pulse Rate 118 H 118 H 119 H Respiratory Rate 20 Blood Pressure 117/78 Pulse Oximetry 09/10/17 04:15 09/10/17 08:00 09/10/17 12:00 Temperature 98.4 F 97.3 F L 97.6 F Pulse Rate 107 H 105 H 126 H Respiratory Rate 18 18 18 Blood Pressure 101/61 147/80 H 103/68 Pulse Oximetry 96 100 100 Intake & Output 09/09/17 09/10/17 09/10/17 18:59 06:59 18:59 Intake Total 400 / 400 Output Total 700 / 700 Balance -700 / -700 400 / 400 Weight 91.6 kg Intake: Oral 400 / 400 Output: Wound Drainage 700 / 700 right nephrostomy tube 700 / 700 Other: # Voids 3 3 Date of Last Bowel Movement 09/08/17 09/09/17 09/10/17 # Bowel Movements 1 <Elen Rasmussen M - 09/10/17 15:20> Vital Signs 09/06/17 12:00 09/06/17 16:00 09/06/17 17:41 Temperature 97.7 F 98.5 F Pulse Rate 140 H 79 Respiratory Rate 18 18 Blood Pressure 141/84 H 110/70 Pulse Oximetry 96 96 96 09/06/17 20:00 09/07/17 00:00 09/07/17 04:00 Temperature 97.8 F 97.8 F 98.1 F Pulse Rate 148 H 137 H 147 H Respiratory Rate 17 17 19 Blood Pressure 121/75 116/74 118/85 Pulse Oximetry 98 94 L 95 09/07/17 09:03 Temperature 97.4 F L Pulse Rate 113 H Respiratory Rate 18 Blood Pressure 143/92 H Pulse Oximetry 95 Intake & Output 09/06/17 09/07/17 09/07/17 18:59 06:59 18:59 Intake Total 480 / 480 660 / 660 Output Total 975 / 975 Balance 480 / 480 -315 / -315 Weight 89.8 kg Intake: Oral 480 / 480 660 / 660 Output: Urine 350 / 350 Wound Drainage 625 / 625 right nephrostomy tube 625 / 625 Other: # Voids 4 # Bowel Movements 1 <Triston Victor - 09/07/17 10:34> Narrative: GENERAL: Laying in bed, no acute distress SKIN: Warm and dry. Right nephrostomy tube in place, dressing clean, dry, intact. Nephrostomy bag with yellow urine HEAD: Atraumatic. Normocephalic. EYES: Pupils equal and round. No scleral icterus. No injection or drainage. ENT: No nasal bleeding or discharge. Mucous membranes pink and moist. NECK: Trachea midline. No JVD. CARDIOVASCULAR: Elevated rate RESPIRATORY: No accessory muscle use. Clear to auscultation. Breath sounds equal bilaterally. GASTROINTESTINAL: Abdomen soft, non-tender, nondistended. Hepatic and splenic margins not palpable. MUSCULOSKELETAL: Extremities without clubbing, cyanosis, or edema. No obvious deformities. NEUROLOGICAL: Awake and alert. No obvious cranial nerve deficits. Motor grossly within normal limits. Five out of 5 muscle strength in the arms and legs. Normal speech. <Triston Victor - 09/07/17 10:34> - Urinary Catheter Management Indwelling Urethral Catheter Cath placed during this visit: no <Elen Rasmussen - 09/10/17 15:20> yes <Triston Victor - 09/07/17 16:07> Reason for continuing: Chronic Urinary Retention <Triston Victor 09/07/17 10:34> Insertion date: 08/31/17 <Triston Victor 09/07/17 10:34> Insertion time: 11:00 <Triston Victor 09/07/17 10:34> Assessment and Plan - Assessment (1) Ureteral obstruction, right Code(s): N13.5 - Crossing vessel and stricture of ureter without hydronephrosis Status: Acute (2) Chronic pain Code(s): G89.29 - Other chronic pain Status: Acute (3) GERD (gastroesophageal reflux disease) Code(s): K21.9 - Gastro-esophageal reflux disease without esophagitis Status: Acute (4) Obstructive sleep apnea on CPAP Code(s): G47.33 - Obstructive sleep apnea (adult) (pediatric); Z99.89 - Dependence on other enabling machines and devices Status: Acute (5) Hypertension Code(s): I10 - Essential (primary) hypertension Status: Chronic (6) Atrial fibrillation Code(s): I48.91 - Unspecified atrial fibrillation Status: Chronic <GradyElen Argenis - 09/10/17 15:20> (1) Ureteral obstruction, right Code(s): N13.5 - Crossing vessel and stricture of ureter without hydronephrosis Status: Acute Plan: Patient with history of Right hydronephrosis of unknown origin with obstruction at UVJ. She underwent a right nephrostomy placement on 08/26/17 by IR. Patient follows with her urologist Dr. Minaya. She presented to the ED with complaints of worsening right-sided abdominal and back pain associated with nausea and increased hematuria. Of note: Dr. 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 -In the ED CT scan abdomen pelvis showed: Worsening hydronephrotic sac in the right kidney with significant dilation of the right renal pelvis and hemorrhage within it compared to prior study from 08/26/2017. There is moderate amount of stool throughout the colon. UA negative for infection however urine positive for blood. Patient status post new 10 [place] tube placed via IR on September 02, 2017. Currently draining a mix of urine and blood. Abdominal x-ray on August showed stable position of the nasogastric and right nephrostomy tubes. Stable elevation of the right hemidiaphragm. No pneumoperitoneum identified on the supine series. H&H has remained stable . - Monitor nephrostomy drainage, clearing up today - Monitor vitals - Monitor CBC - Pain management: Percocet per pain scale morphine Q3h for breakthrough pain discontinued today. - PPI 40mg BID -monitor I/Os (2) Anemia Code(s): D64.9 - Anemia, unspecified Status: Resolved Plan: H\H currently uptrending. -Continue to monitor H/H -Transfuse if hemoglobin falls below 7 -Continue with Protonix 40mg IV BID -Consider Gi consult if patient begins to have drop in H&H probably due to loss of blood from kidney (3) Atrial fibrillation Code(s): I48.91 - Unspecified atrial fibrillation Status: Chronic Plan: Patient with history atrial fibrillation on Xarelto 50 mg twice daily. Patient with tachycardia overnight. Patient reports being asymptomatic and not feeling any flutter, palpitations, or racing heart. On telemetry there were no arrhythmias noted. Heart rate today at 110s. - Xarelto on hold due to risk of bleeding. can consider restarting as her bleeding is greatly improved - Patient placed on telemetry - Explained that the Xarelto would need to be held despite the increased risk of stroke as her problems of bleeding were of an urgent nature at this time -Metoprolol succinate 50 mg twice daily changed to metoprolol tartrate 50 mg 3 times daily she still gets tachycardic at times and has anxiety and her benzo was restarted previously (4) Hypertension Code(s): I10 - Essential (primary) hypertension Status: Chronic Plan: blood pressure stable - Continue to monitor (5) Sleep apnea Code(s): G47.30 - Sleep apnea, unspecified Status: Chronic Plan: Patient with history of sleep apnea. She uses CPAP at night. c/w CPAP (6) Arthritis Code(s): M19.90 - Unspecified osteoarthritis, unspecified site Status: Acute Plan: Patient reports she uses oxycodone 10 for her arthritic pain control as an outpt Patient was currently on pain scale for abdominal pain (7) Anxiety Code(s): F41.9 - Anxiety disorder, unspecified Status: Acute Plan: Continue with home medications (8) GERD (gastroesophageal reflux disease) Code(s): K21.9 - Gastro-esophageal reflux disease without esophagitis Status: Acute Plan: Patient placed on Protonix 40 mg twice daily (9) Nutrition, metabolism, and development symptoms Code(s): R63.8 - Other symptoms and signs concerning food and fluid intake Status: Acute Plan: Fluids: 1/2 NS with D5 @ 100mls/hr Electrolytes: Replete as needed Nutrition: N.p.o. DVT prophylaxis: SCDs GI ppx: protonix BID <Triston Victor - 09/07/17 16:06> - Attending Attestation The exam, history, and the medical decision-making described in the above note were completed with the assistance of the resident physician. I reviewed and agree with the findings presented. I attest that I had a [id number] encounter with the patient on the same day, and personally performed and documented my assessment and findings in the medical record. when she improves a little more, she should qualify for rehab. 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) (4) Hypertension Qualifiers: Hypertension type: essential hypertension Qualified Code(s): I10 - Essential (primary) hypertension (5) Sleep apnea Qualifiers: Sleep apnea type: obstructive Qualified Code(s): G47.33 - Obstructive sleep apnea (adult) (pediatric) (8) GERD (gastroesophageal reflux disease) Qualifiers: Esophagitis presence: esophagitis presence not specified Qualified Code(s): K21.9 - Gastro-esophageal reflux disease without esophagitis <Elen Rasmussen - Last Filed: 09/10/17 15:20> (3) GERD (gastroesophageal reflux disease) Qualifiers: (5) Hypertension Qualifiers: <Triston Victor - Last Filed: 09/07/17 16:06> (2) Anemia Qualifiers: Anemia type: iron 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) (4) Hypertension Qualifiers: Hypertension type: essential hypertension Qualified Code(s): I10 - Essential (primary) hypertension (5) Sleep apnea Qualifiers: Sleep apnea type: obstructive Qualified Code(s): G47.33 - Obstructive sleep apnea (adult) (pediatric) (8) GERD (gastroesophageal reflux disease) Qualifiers: Esophagitis presence: esophagitis presence not specified Qualified Code(s): K21.9 - Gastro-esophageal reflux disease without esophagitis <Elen Rasmussen - Last Filed: 09/10/17 15:20> (3) GERD (gastroesophageal reflux disease) Qualifiers: (5) Hypertension Qualifiers:
[2017-09-07] MEDS: ALPRAZolam 0.25 MG Tablet PO PRN ×3 (10:47→23:52)
[2017-09-07] MEDS: Metoprolol Tartrate 50 MG Tablet PO SCH ×2 (12:45→17:31)
[2017-09-08] MEDS: oxyCODONE/Acetaminophen 10/325 Tablet PO PRN ×4 (04:31→23:10)
[2017-09-08] MEDS: Metoprolol Tartrate 50 MG Tablet PO SCH ×4 (05:41→17:02)
[2017-09-08] MEDS ORDERED: dilTIAZem CD 120 MG Capsule PO SCH (09:30)
[2017-09-08] MEDS: Pantoprazole Inj 40 MG Vial IV.PUSH SCH ×2 (09:53→21:38)
[2017-09-08] MEDS: Ferrous Sulfate 325 MG Tablet PO SCH (09:54)
[2017-09-08] MEDS: Polyethylene Glycol 3350 17 GM Packet PO SCH (09:55)
[2017-09-08] MEDS: Methylnaltrexone Inj 12 MG/0.6 ML Vial SQ SCH (10:04)
--- NOTE | 2017-09-08 11:08 | P.PNFP ---
Subjective Interval history: Patient seen and examined today. Denies nausea, vomiting, fever, chills, abdominal pain, chest pain, lightheadedness, dizziness. States she may have had one episode of shortness of breath last night which last approximately 4 seconds, relieved when she took a deep breath in. Continues to complain of rapid heartbeat. No other complaints today. <KayleighKarri - 09/08/17 11:08> Results - Labs Result diagrams: 09/08/17 10:55 09/08/17 10:55 <Rich Edgar - 09/08/17 16:14> Abnormal lab results 09/08/17 09/08/17 Range/Units 10:55 10:55 RBC 2.98 L (4.00-5.30) mil/mm3 Hgb 9.6 L (11.6-15.3) gm/dL Hct 27.8 L (35.0-46.0) % Sodium 132 L (136-145) meq/L Potassium 3.4 L (3.5-5.1) meq/L Chloride 96 L (98-107) meq/L Estimated GFR 53 L (>89) mL/min Random Glucose 109 H (74-106) mg/dL Short CBC 09/08/17 Range/Units 10:55 WBC 6.5 (4.0-11.0) th/mm3 Hgb 9.6 L (11.6-15.3) gm/dL Hct 27.8 L (35.0-46.0) % Plt Count 353 (150-450) th/mm3 BMP 09/08/17 10:55 Sodium 132 L Potassium 3.4 L Chloride 96 L Carbon Dioxide 26.0 BUN 13 Creatinine 1.00 Calcium 8.6 <Rich Edgar - 09/08/17 16:14> Physical Exam Vital signs: Vital Signs 09/07/17 17:56 09/07/17 19:50 09/07/17 20:00 Temperature 98.2 F 97.4 F L Pulse Rate 72 137 H 76 Respiratory Rate 16 18 Blood Pressure 114/72 107/78 Pulse Oximetry 97 98 09/07/17 23:51 09/08/17 00:00 09/08/17 03:51 Temperature 97.7 F Pulse Rate 135 H 110 H 123 H Respiratory Rate 18 Blood Pressure 125/68 Pulse Oximetry 96 09/08/17 04:00 09/08/17 04:16 09/08/17 08:00 Temperature 97.6 F 97.3 F L Pulse Rate 113 H 121 H 110 H Respiratory Rate 18 17 Blood Pressure 119/81 120/83 Pulse Oximetry 96 98 09/08/17 12:00 09/08/17 12:04 Temperature 97.9 F Pulse Rate 68 Respiratory Rate 18 18 Blood Pressure 116/74 Pulse Oximetry 97 Intake & Output 09/07/17 09/08/17 09/08/17 18:59 06:59 18:59 Intake Total 800 / 800 240 / 240 Output Total 800 / 800 300 / 300 Balance 800 / 800 -560 / -560 -300 / -300 Weight 91.5 kg Intake: Oral 800 / 800 240 / 240 Output: Wound Drainage 800 / 800 300 / 300 right nephrostomy tube 800 / 800 300 / 300 Other: # Voids 2 2 # Bowel Movements 1 <Rich Edgar - 09/08/17 16:14> Vital Signs 09/07/17 12:00 09/07/17 13:29 09/07/17 16:00 Temperature 97.1 F L Pulse Rate 141 H 100 H 142 H Respiratory Rate 20 Blood Pressure 130/75 Pulse Oximetry 98 09/07/17 17:56 09/07/17 19:50 09/07/17 20:00 Temperature 98.2 F 97.4 F L Pulse Rate 72 137 H 76 Respiratory Rate 16 18 Blood Pressure 114/72 107/78 Pulse Oximetry 97 98 09/07/17 23:51 09/08/17 00:00 09/08/17 03:51 Temperature 97.7 F Pulse Rate 135 H 110 H 123 H Respiratory Rate 18 Blood Pressure 125/68 Pulse Oximetry 96 09/08/17 04:00 09/08/17 04:16 Temperature 97.6 F Pulse Rate 113 H 121 H Respiratory Rate 18 Blood Pressure 119/81 Pulse Oximetry 96 Intake & Output 09/07/17 09/08/17 09/08/17 18:59 06:59 18:59 Intake Total 800 / 800 240 / 240 Output Total 800 / 800 Balance 800 / 800 -560 / -560 Weight 91.5 kg Intake: Oral 800 / 800 240 / 240 Output: Wound Drainage 800 / 800 right nephrostomy tube 800 / 800 Other: # Voids 2 2 # Bowel Movements 1 <Triston Victor - 09/08/17 11:08> Narrative: GENERAL: Laying in bed, no acute distress SKIN: Warm and dry. Right nephrostomy tube in place, dressing clean, dry, intact. Nephrostomy bag with dark yellow urine HEAD: Atraumatic. Normocephalic. EYES: Pupils equal and round. No scleral icterus. No injection or drainage. ENT: No nasal bleeding or discharge. Mucous membranes pink and moist. NECK: Trachea midline. No JVD. CARDIOVASCULAR: Elevated rate RESPIRATORY: No accessory muscle use. Clear to auscultation. Breath sounds equal bilaterally. GASTROINTESTINAL: Abdomen soft, non-tender, nondistended. Hepatic and splenic margins not palpable. MUSCULOSKELETAL: Extremities without clubbing, cyanosis, or edema. No obvious deformities. NEUROLOGICAL: Awake and alert. No obvious cranial nerve deficits. Motor grossly within normal limits. Five out of 5 muscle strength in the arms and legs. Normal speech. <Triston Victor 09/08/17 11:08> - Urinary Catheter Management Indwelling Urethral Catheter Cath placed during this visit: no <Rich Edgar - 09/08/17 16:14> yes <Triston Victor 09/08/17 11:08> Reason for continuing: Chronic Urinary Retention <Triston Victor 09/08/17 11:08> Insertion date: 08/31/17 <Triston Victor 09/08/17 11:08> Insertion time: 11:00 <Triston Victor 09/08/17 11:08> Assessment and Plan - Assessment (1) Ureteral obstruction, right Code(s): N13.5 - Crossing vessel and stricture of ureter without hydronephrosis Status: Acute (2) Anemia Code(s): D64.9 - Anemia, unspecified Status: Resolved (3) Atrial fibrillation Code(s): I48.91 - Unspecified atrial fibrillation Status: Chronic (4) Hypertension Code(s): I10 - Essential (primary) hypertension Status: Chronic (5) Sleep apnea Code(s): G47.30 - Sleep apnea, unspecified Status: Chronic (6) Arthritis Code(s): M19.90 - Unspecified osteoarthritis, unspecified site Status: Acute (7) Anxiety Code(s): F41.9 - Anxiety disorder, unspecified Status: Acute (8) GERD (gastroesophageal reflux disease) Code(s): K21.9 - Gastro-esophageal reflux disease without esophagitis Status: Acute (9) Nutrition, metabolism, and development symptoms Code(s): R63.8 - Other symptoms and signs concerning food and fluid intake Status: Acute <Rich Edgar - 09/08/17 16:14> (1) Ureteral obstruction, right Code(s): N13.5 - Crossing vessel and stricture of ureter without hydronephrosis Status: Acute Plan: Right nephrostomy placement on 08/26/17 by IR. Presented to the ED with complaints of worsening right-sided abdominal and back pain associated with nausea and increased hematuria. Hematuria improved. - Monitor nephrostomy drainage, clearing up today - Monitor vitals - Monitor CBC - Pain management: Percocet per pain scale morphine Q3h for breakthrough pain discontinued today. - PPI 40mg BID -monitor I/Os (2) Anemia Code(s): D64.9 - Anemia, unspecified Status: Resolved Plan: H\H currently uptrending. -Continue to monitor H/H -Transfuse if hemoglobin falls below 7 -Continue with Protonix 40mg IV BID -Consider Gi consult if patient begins to have drop in H&H probably due to loss of blood from kidney (3) Atrial fibrillation Code(s): I48.91 - Unspecified atrial fibrillation Status: Chronic Plan: history of atrial fibrillation on Xarelto 50 mg twice daily. Patient with tachycardia overnight. Heart rate today at 110s. - Xarelto on hold due to risk of bleeding. can consider restarting as her bleeding is greatly improved - Patient placed on telemetry -Metoprolol tartrate 50 mg 3 times daily -Added Diltiazem 30mg QID (4) Hypertension Code(s): I10 - Essential (primary) hypertension Status: Chronic Plan: blood pressure stable - Continue to monitor (5) Sleep apnea Code(s): G47.30 - Sleep apnea, unspecified Status: Chronic Plan: Patient with history of sleep apnea. She uses CPAP at night. c/w CPAP (6) Arthritis Code(s): M19.90 - Unspecified osteoarthritis, unspecified site Status: Acute Plan: Patient reports she uses oxycodone 10 for her arthritic pain control as an outpt Patient was currently on pain scale for abdominal pain (7) Anxiety Code(s): F41.9 - Anxiety disorder, unspecified Status: Acute Plan: Continue with home medications (8) GERD (gastroesophageal reflux disease) Code(s): K21.9 - Gastro-esophageal reflux disease without esophagitis Status: Acute Plan: Patient placed on Protonix 40 mg twice daily (9) Nutrition, metabolism, and development symptoms Code(s): R63.8 - Other symptoms and signs concerning food and fluid intake Status: Acute Plan: Fluids: Tolerating PO Electrolytes: Replete as needed Nutrition: PO DVT prophylaxis: SCDs GI ppx: protonix BID <Triston Victor - 09/08/17 11:01> - Attending Attestation Patient examined during medical rounds and case discussed with resident team I have read the above note and agree with the assessment/plan as discussed with me I was involved in all medical decision making for this patient Rich Edgar MD <Rich Edgar - 09/08/17 16:14> <Triston Victor - Last Filed: 09/08/17 11:01> (2) Anemia Qualifiers: Anemia type: iron 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) (4) Hypertension Qualifiers: Hypertension type: essential hypertension Qualified Code(s): I10 - Essential (primary) hypertension (5) Sleep apnea Qualifiers: Sleep apnea type: obstructive Qualified Code(s): G47.33 - Obstructive sleep apnea (adult) (pediatric) (8) GERD (gastroesophageal reflux disease) Qualifiers: Esophagitis presence: esophagitis presence not specified Qualified Code(s): K21.9 - Gastro-esophageal reflux disease without esophagitis <Rich dEgar - Last Filed: 09/08/17 16:14> (2) Anemia Qualifiers: Anemia type: iron 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) (4) Hypertension Qualifiers: Hypertension type: essential hypertension Qualified Code(s): I10 - Essential (primary) hypertension (5) Sleep apnea Qualifiers: Sleep apnea type: obstructive Qualified Code(s): G47.33 - Obstructive sleep apnea (adult) (pediatric) (8) GERD (gastroesophageal reflux disease) Qualifiers: Esophagitis presence: esophagitis presence not specified Qualified Code(s): K21.9 - Gastro-esophageal reflux disease without esophagitis <Triston Victor - Last Filed: 09/08/17 11:01> (2) Anemia Qualifiers: Anemia type: iron 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) (4) Hypertension Qualifiers: Hypertension type: essential hypertension Qualified Code(s): I10 - Essential (primary) hypertension (5) Sleep apnea Qualifiers: Sleep apnea type: obstructive Qualified Code(s): G47.33 - Obstructive sleep apnea (adult) (pediatric) (8) GERD (gastroesophageal reflux disease) Qualifiers: Esophagitis presence: esophagitis presence not specified Qualified Code(s): K21.9 - Gastro-esophageal reflux disease without esophagitis <Rich Edgar - Last Filed: 09/08/17 16:14> (2) Anemia Qualifiers: Anemia type: iron 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) (4) Hypertension Qualifiers: Hypertension type: essential hypertension Qualified Code(s): I10 - Essential (primary) hypertension (5) Sleep apnea Qualifiers: Sleep apnea type: obstructive Qualified Code(s): G47.33 - Obstructive sleep apnea (adult) (pediatric) (8) GERD (gastroesophageal reflux disease) Qualifiers: Esophagitis presence: esophagitis presence not specified Qualified Code(s): K21.9 - Gastro-esophageal reflux disease without esophagitis
[2017-09-08 11:51] LABS: Hematocrit 27.8 % (35.0-46.0); Hemoglobin 9.6 gm/dL (11.6-15.3); Mean Corpuscular HGB Conc 34.6 % (32.0-36.0); Mean Corpuscular Hemoglobin 32.2 pg (27.0-34.0); Mean Corpuscular Volume 93.2 fL (80.0-100.0); Mean Platelet Volume 9.3 fL (7.0-11.0); Platelet Count 353 th/mm3 (150-450); Red Blood Count 2.98 mil/mm3 (4.00-5.30); Red Cell Distribution Width 14.6 % (11.6-17.2); White Blood Count 6.5 th/mm3 (4.0-11.0)
[2017-09-08 12:02] LABS: Calcium 8.6 mg/dL (8.5-10.1); Potassium 3.4 meq/L (3.5-5.1)
[2017-09-08] MEDS: dilTIAZem 30 MG Tablet PO SCH ×3 (12:05→21:38)
[2017-09-08] MEDS: ALPRAZolam 0.25 MG Tablet PO PRN ×2 (12:05→17:46)
--- NOTE | 2017-09-08 17:47 | P.PNURO ---
Subjective Patient symptoms today: Doing well. Patient in bathroom at time of visit, however discussed plan of care from urological standpoint with the patient. After patient is discharged, she may followup with urology in clinic to review nephrostomy tube plan and further investigation with potential renal scan to evaluate overall function of this renal unit. We may then consider possible internalization of the nephrostomy tube based on results Please call Urology with any questions Objective Vital Signs: Vital Signs 09/07/17 17:56 09/07/17 19:50 09/07/17 20:00 Temperature 98.2 F 97.4 F L Pulse Rate 72 137 H 76 Respiratory Rate 16 18 Blood Pressure 114/72 107/78 Pulse Oximetry 97 98 09/07/17 23:51 09/08/17 00:00 09/08/17 03:51 Temperature 97.7 F Pulse Rate 135 H 110 H 123 H Respiratory Rate 18 Blood Pressure 125/68 Pulse Oximetry 96 09/08/17 04:00 09/08/17 04:16 09/08/17 08:00 Temperature 97.6 F 97.3 F L Pulse Rate 113 H 121 H 110 H Respiratory Rate 18 17 Blood Pressure 119/81 120/83 Pulse Oximetry 96 98 09/08/17 12:00 09/08/17 12:04 09/08/17 16:00 Temperature 97.9 F 97.8 F Pulse Rate 68 120 H Respiratory Rate 18 18 18 Blood Pressure 116/74 127/73 Pulse Oximetry 97 98 Intake & Output 09/07/17 09/08/17 09/08/17 18:59 06:59 18:59 Intake Total 800 / 800 240 / 240 Output Total 800 / 800 300 / 300 Balance 800 / 800 -560 / -560 -300 / -300 Weight 91.5 kg Intake: Oral 800 / 800 240 / 240 Output: Wound Drainage 800 / 800 300 / 300 right nephrostomy tube 800 / 800 300 / 300 Other: # Voids 2 2 # Bowel Movements 1 Result Diagrams: 09/08/17 10:55 09/08/17 10:55 Medications and IVs: Active Medications Generic Name Dose Route Start Last Admin Trade Name Freq PRN Reason Stop Dose Admin Al Hydroxide/Mg Hydroxide 30 ml 08/31/17 12:55 Milk Of Magnesia Liq PO Q12H PRN Mild Constipation Alprazolam 0.25 mg 09/05/17 23:40 09/08/17 12:05 Xanax PO 0.25 mg Q6H PRN Administration ANXIETY Atorvastatin Calcium 40 mg 09/01/17 09:00 09/08/17 09:54 Lipitor PO 40 mg DAILY [facility] Administration Bisacodyl 10 mg 09/01/17 06:57 Dulcolax Supp RECTAL DAILY PRN [facility] [employer]IP[employer] Buspirone HCl 15 mg 08/31/17 21:00 09/08/17 10:21 Buspar PO 15 mg BID SHARYN Administration Clonidine HCl 0.1 mg 08/31/17 13:14 09/05/17 23:51 Catapres PO 0.1 mg Q6H PRN Administration SEE LABEL COMMENTS Cyanocobalamin 1,000 mcg 09/01/17 09:00 09/08/17 09:54 Vitamin B12 PO 1,000 mcg DAILY [facility] Administration Diltiazem HCl 30 mg 09/08/17 13:00 09/08/17 17:02 Cardizem PO 30 mg QID [facility] Administration Ferrous Sulfate 325 mg 09/01/17 09:00 09/08/17 09:54 Ferosul PO 325 mg DAILY [facility] Administration Lactulose 30 ml 08/31/17 12:55 09/04/17 12:27 Lactulose Liq PO 30 ml DAILY PRN Administration SEVERE CONSITIPATION Losartan Potassium 50 mg 09/01/17 09:00 09/08/17 09:54 Cozaar PO 50 mg DAILY [facility] Administration Methylnaltrexone [place] 12 mg 09/05/17 13:00 09/08/17 10:04 Relistor SQ 12 mg DAILY [facility] Administration Metoprolol Tartrate 50 mg 09/07/17 13:00 09/08/17 17:02 Lopressor PO 50 mg TID [facility] Administration Morphine Sulfate 4 mg 09/01/17 10:37 09/05/17 04:00 Morphine Inj IV.PUSH 4 mg Q3H PRN Administration breakthrough Naloxone HCl 0.4 mg 08/31/17 13:01 Narcan Inj IV.PUSH UNSCH PRN SEE LABEL COMMENTS Ondansetron HCl 4 mg 08/31/17 12:55 09/08/17 17:02 Zofran Odt PO 4 mg Q6H PRN Administration NAUSEA OR VOMITING Oxycodone/Acetaminophen 1 tab 08/31/17 13:01 09/08/17 17:02 Percocet 10/325 Mg PO 1 tab Q6H PRN Administration PAIN SCALE 6 TO 10 Oxycodone/Acetaminophen 1 tab 08/31/17 13:01 09/07/17 22:26 Percocet 5/325 Mg PO 1 tab Q6H PRN Administration PAIN SCALE 3 TO 5 Pantoprazole Sodium 40 mg 08/31/17 21:00 09/08/17 09:53 Protonix Inj IV.PUSH 40 mg BID HS[facility] Administration Polyethylene Glycol 17 gm 09/05/17 13:00 09/08/17 09:55 Miralax PO 17 gm DAILY [facility] Administration Sennosides 17.2 mg 08/31/17 12:55 Senokot PO Q12H PRN Moderate Constipation Sodium Chloride 2 ml 08/31/17 07:20 09/08/17 17:02 Ns Flush IV.FLUSH 2 ml PRN PRN Administration FLUSH AFTER USING IV ACCESS Sodium Chloride 10 ml 09/03/17 09:00 09/07/17 09:32 Ns Inj IRRIGATION 10 ml DAILY [facility] Administration Vitamin D 2,000 unit 09/01/17 09:00 09/08/17 12:05 Vitamin D3 PO 2,000 unit DAILY [facility] Administration
[2017-09-09] MEDS: ALPRAZolam 0.25 MG Tablet PO PRN ×4 (01:56→23:32)
[2017-09-09] MEDS: Ferrous Sulfate 325 MG Tablet PO SCH (09:30)
[2017-09-09] MEDS: dilTIAZem 30 MG Tablet PO SCH ×4 (09:30→22:30)
[2017-09-09] MEDS: Metoprolol Tartrate 50 MG Tablet PO SCH ×3 (09:31→17:39)
[2017-09-09] MEDS: Pantoprazole Inj 40 MG Vial IV.PUSH SCH ×2 (09:31→22:30)
[2017-09-09] MEDS: Methylnaltrexone Inj 12 MG/0.6 ML Vial SQ SCH (09:32)
[2017-09-09] MEDS: Polyethylene Glycol 3350 17 GM Packet PO SCH (09:32)
[2017-09-09] MEDS: oxyCODONE/Acetaminophen 10/325 Tablet PO PRN ×3 (09:32→22:31)
[2017-09-09 10:30] LABS: Anion Gap 9 meq/L (5-15); Blood Urea Nitrogen 9 mg/dL (7-18); Carbon Dioxide 26.2 meq/L (21.0-32.0); Chloride 100 meq/L (98-107); Potassium 3.8 meq/L (3.5-5.1); Sodium 135 meq/L (136-145)
[2017-09-09 10:31] LABS: Calcium 8.9 mg/dL (8.5-10.1); Glomerular Filtration Rate Greater Than 89 mL/min (>89); Glucose,Random 106 mg/dL (74-106)
--- NOTE | 2017-09-09 11:18 | P.PNFP ---
Subjective Interval history: Patient seen and examined this morning. Denies nausea, vomiting, fever, chills, abdominal pain, chest pain, shortness of breath, lightheadedness, dizziness. Reports that heart rate feels improved, is not as fast as before. No other complaints today. <Triston Victor - 09/09/17 11:18> Results - Labs Result diagrams: 09/08/17 10:55 09/09/17 09:20 <Rich Edgar 09/09/17 16:45> Abnormal lab results 09/09/17 Range/Units 09:20 Sodium 135 L (136-145) meq/L [facility] 09/09/17 09:20 Sodium 135 L Potassium 3.8 Chloride 100 Carbon Dioxide 26.2 BUN 9 Creatinine 0.92 Calcium 8.9 <Rich Edgar - 09/09/17 16:45> Abnormal lab results 09/08/17 09/08/17 09/09/17 Range/Units 10:55 10:55 09:20 RBC 2.98 L (4.00-5.30) mil/mm3 Hgb 9.6 L (11.6-15.3) gm/dL Hct 27.8 L (35.0-46.0) % Sodium 132 L 135 L (136-145) meq/L Potassium 3.4 L (3.5-5.1) meq/L Chloride 96 L (98-107) meq/L Estimated GFR 53 L (>89) mL/min Random Glucose 109 H (74-106) mg/dL Short CBC 09/08/17 Range/Units 10:55 WBC 6.5 (4.0-11.0) th/mm3 Hgb 9.6 L (11.6-15.3) gm/dL Hct 27.8 L (35.0-46.0) % Plt Count 353 (150-450) th/mm3 [facility] 09/08/17 09/09/17 10:55 09:20 Sodium 132 L 135 L Potassium 3.4 L 3.8 Chloride 96 L 100 Carbon Dioxide 26.0 26.2 BUN 13 9 Creatinine 1.00 0.92 Calcium 8.6 8.9 <Triston Victor - 09/09/17 11:18> Physical Exam Vital signs: Vital Signs 09/08/17 20:00 09/09/17 00:00 09/09/17 04:00 Temperature 97.3 F L 97.3 F L Pulse Rate 124 H 106 H 113 H Respiratory Rate 18 18 Blood Pressure 114/77 119/79 Pulse Oximetry 98 100 09/09/17 06:00 09/09/17 08:00 09/09/17 12:00 Temperature 97.3 F L 97.6 F 97.9 F Pulse Rate 104 H 121 H 121 H Respiratory Rate 18 16 14 Blood Pressure 114/77 139/81 121/82 Pulse Oximetry 98 98 98 09/09/17 15:45 Temperature Pulse Rate 102 H Respiratory Rate Blood Pressure Pulse Oximetry Intake & Output 09/08/17 09/09/17 09/09/17 18:59 06:59 18:59 Intake Total 720 / 720 240 / 240 Output Total 1450 / 1450 650 / 650 Balance -730 / -730 -410 / -410 Weight 92.1 kg Intake: Oral 720 / 720 240 / 240 Output: Urine 800 / 800 Wound Drainage 650 / 650 650 / 650 right nephrostomy tube 650 / 650 650 / 650 Other: # Voids 2 4 Date of Last Bowel Movement 09/08/17 # Bowel Movements 2 # Incontinent Bowel Movements 0 <Rich Edgar - 09/09/17 16:45> Vital Signs 09/08/17 12:00 09/08/17 12:04 09/08/17 16:00 Temperature 97.9 F 97.8 F Pulse Rate 68 120 H Respiratory Rate 18 18 18 Blood Pressure 116/74 127/73 Pulse Oximetry 97 98 09/08/17 20:00 09/09/17 00:00 09/09/17 04:00 Temperature 97.3 F L 97.3 F L Pulse Rate 124 H 106 H 113 H Respiratory Rate 18 18 Blood Pressure 114/77 119/79 Pulse Oximetry 98 100 09/09/17 06:00 09/09/17 08:00 Temperature 97.3 F L 97.6 F Pulse Rate 104 H 131 H Respiratory Rate 18 16 Blood Pressure 114/77 139/81 Pulse Oximetry 98 98 Intake & Output 09/08/17 09/09/17 09/09/17 18:59 06:59 18:59 Intake Total 720 / 720 240 / 240 Output Total 1450 / 1450 650 / 650 Balance -730 / -730 -410 / -410 Weight 92.1 kg Intake: Oral 720 / 720 240 / 240 Output: Urine 800 / 800 Wound Drainage 650 / 650 650 / 650 right nephrostomy tube 650 / 650 650 / 650 Other: # Voids 2 4 Date of Last Bowel Movement 09/08/17 # Bowel Movements 2 # Incontinent Bowel Movements 0 <Triston Victor - 09/09/17 11:18> Narrative: GENERAL: Laying in bed, no acute distress SKIN: Warm and dry. Right nephrostomy tube in place, dressing clean, dry, intact. Nephrostomy bag with dark yellow urine, improved from yesterday HEAD: Atraumatic. Normocephalic. EYES: Pupils equal and round. No scleral icterus. No injection or drainage. ENT: No nasal bleeding or discharge. Mucous membranes pink and moist. NECK: Trachea midline. No JVD. CARDIOVASCULAR: Elevated rate RESPIRATORY: No accessory muscle use. Clear to auscultation. Breath sounds equal bilaterally. GASTROINTESTINAL: Abdomen soft, non-tender, nondistended. Hepatic and splenic margins not palpable. MUSCULOSKELETAL: Extremities without clubbing, cyanosis, or edema. No obvious deformities. NEUROLOGICAL: Awake and alert. No obvious cranial nerve deficits. Motor grossly within normal limits. Normal speech. <Triston Victor - 09/09/17 11:18> - Urinary Catheter Management Indwelling Urethral Catheter Cath placed during this visit: no <Rich Edgar - 09/09/17 16:45> yes <Triston Victor - 09/09/17 11:18> Reason for continuing: Chronic Urinary Retention <Triston Victor - 09/09/17 11:18> Insertion date: 08/31/17 <Triston Victor - 09/09/17 11:18> Insertion time: 11:00 <Triston Victor - 09/09/17 11:18> Assessment and Plan - Assessment (1) Ureteral obstruction, right Code(s): N13.5 - Crossing vessel and stricture of ureter without hydronephrosis Status: Acute (2) Anemia Code(s): D64.9 - Anemia, unspecified Status: Resolved (3) Atrial fibrillation Code(s): I48.91 - Unspecified atrial fibrillation Status: Chronic (4) Hypertension Code(s): I10 - Essential (primary) hypertension Status: Chronic (5) Sleep apnea Code(s): G47.30 - Sleep apnea, unspecified Status: Chronic (6) Arthritis Code(s): M19.90 - Unspecified osteoarthritis, unspecified site Status: Acute (7) Anxiety Code(s): F41.9 - Anxiety disorder, unspecified Status: Acute (8) GERD (gastroesophageal reflux disease) Code(s): K21.9 - Gastro-esophageal reflux disease without esophagitis Status: Acute (9) Nutrition, metabolism, and development symptoms Code(s): R63.8 - Other symptoms and signs concerning food and fluid intake Status: Acute <Rich Edgar - 09/09/17 16:45> (1) Ureteral obstruction, right Code(s): N13.5 - Crossing vessel and stricture of ureter without hydronephrosis Status: Acute Plan: Right nephrostomy placement on 08/26/17 by IR. Presented to the ED with complaints of worsening right-sided abdominal and back pain associated with nausea and increased hematuria. Hematuria improved. - Monitor nephrostomy drainage, clearing up today - Monitor vitals - Monitor CBC - Pain management: Percocet per pain scale morphine Q3h for breakthrough pain discontinued today. - PPI 40mg BID -monitor I/Os -To be assessed and followed up outpatient with Dr. Minaya (2) Anemia Code(s): D64.9 - Anemia, unspecified Status: Resolved Plan: H\H currently uptrending. -Transfuse if hemoglobin falls below 7 -Continue with Protonix 40mg IV BID -Consider Gi consult if patient begins to have drop in H&H probably due to loss of blood from kidney (3) Atrial fibrillation Code(s): I48.91 - Unspecified atrial fibrillation Status: Chronic Plan: history of atrial fibrillation on Xarelto 50 mg twice daily. Patient with tachycardia overnight. Heart rate in the low 100s - Xarelto on hold due to risk of bleeding. can consider restarting as her bleeding is greatly improved - Patient placed on telemetry -Metoprolol tartrate 50 mg 3 times daily -Added Diltiazem 30mg QID, will consider increasing (4) Hypertension Code(s): I10 - Essential (primary) hypertension Status: Chronic Plan: blood pressure stable - Continue to monitor (5) Sleep apnea Code(s): G47.30 - Sleep apnea, unspecified Status: Chronic Plan: Patient with history of sleep apnea. She uses CPAP at night. c/w CPAP (6) Arthritis Code(s): M19.90 - Unspecified osteoarthritis, unspecified site Status: Acute Plan: Patient reports she uses oxycodone 10 for her arthritic pain control as an outpt Patient was currently on pain scale for abdominal pain (7) Anxiety Code(s): F41.9 - Anxiety disorder, unspecified Status: Acute Plan: Continue with home medications (8) GERD (gastroesophageal reflux disease) Code(s): K21.9 - Gastro-esophageal reflux disease without esophagitis Status: Acute Plan: Patient placed on Protonix 40 mg twice daily (9) Nutrition, metabolism, and development symptoms Code(s): R63.8 - Other symptoms and signs concerning food and fluid intake Status: Acute Plan: Fluids: Tolerating PO Electrolytes: Replete as needed Nutrition: PO DVT prophylaxis: SCDs GI ppx: protonix BID <Triston Victor - 09/09/17 11:15> - Attending Attestation Pt. 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) (4) Hypertension Qualifiers: Hypertension type: essential hypertension Qualified Code(s): I10 - Essential (primary) hypertension (5) Sleep apnea Qualifiers: Sleep apnea type: obstructive Qualified Code(s): G47.33 - Obstructive sleep apnea (adult) (pediatric) (8) GERD (gastroesophageal reflux disease) Qualifiers: Esophagitis presence: esophagitis presence not specified Qualified Code(s): K21.9 - Gastro-esophageal reflux disease without esophagitis <Rich Edgar - Last Filed: 09/09/17 16:45> (2) Anemia Qualifiers: Anemia type: iron 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) (4) Hypertension Qualifiers: Hypertension type: essential hypertension Qualified Code(s): I10 - Essential (primary) hypertension (5) Sleep apnea Qualifiers: Sleep apnea type: obstructive Qualified Code(s): G47.33 - Obstructive sleep apnea (adult) (pediatric) (8) GERD (gastroesophageal reflux disease) Qualifiers: Esophagitis presence: esophagitis presence not specified Qualified Code(s): K21.9 - Gastro-esophageal reflux disease without esophagitis <Triston Victor - Last Filed: 09/09/17 11:15> (2) Anemia Qualifiers: Anemia type: iron 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) (4) Hypertension Qualifiers: Hypertension type: essential hypertension Qualified Code(s): I10 - Essential (primary) hypertension (5) Sleep apnea Qualifiers: Sleep apnea type: obstructive Qualified Code(s): G47.33 - Obstructive sleep apnea (adult) (pediatric) (8) GERD (gastroesophageal reflux disease) Qualifiers: Esophagitis presence: esophagitis presence not specified Qualified Code(s): K21.9 - Gastro-esophageal reflux disease without esophagitis <Rich Edgar - Last Filed: 09/09/17 16:45> (2) Anemia Qualifiers: Anemia type: iron 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) (4) Hypertension Qualifiers: Hypertension type: essential hypertension Qualified Code(s): I10 - Essential (primary) hypertension (5) Sleep apnea Qualifiers: Sleep apnea type: obstructive Qualified Code(s): G47.33 - Obstructive sleep apnea (adult) (pediatric) (8) GERD (gastroesophageal reflux disease) Qualifiers: Esophagitis presence: esophagitis presence not specified Qualified Code(s): K21.9 - Gastro-esophageal reflux disease without esophagitis
--- NOTE | 2017-09-09 17:02 | IR ---
EXAM DATE: 09/02/2017 3:55 PM EDT AGE/SEX: 82 years / Female INDICATIONS: Patient presents with hydronephrosis and poor drainage. CLINICAL DATA: This is the patient's sequela encounter. Patient reports that signs and symptoms have been present for 4 - 6 days and indicates a pain score of 9/10. MEDICAL/SURGICAL HISTORY: . Osteoporosis HTN STAN FIB Sleep apnea Hyperlipidemia . Right kne e replacement Cardiac Ablation COMPARISON: . FLUORO TIME (min): 13:03 IMAGE SERIES: 1 SEDATION TIME (min): 35 CONTRAST (cc): 20 Omnipaque (iohexol) 350 4mg midazolam (Versed) IV 200 mcg fentanyl (Sublimaze) IV DEVICE(S): 10 [place] nephrostomy catheter . . PROCEDURE: 1. Antegrade pyelogram. 2. Nephrostomy tube exchange. 3. Conscious sedation with continuous EKG and oximetry monitoring. The risks, benefits and alternatives to the procedure were explained and verbal and written consent w as obtained. The site was prepped in sterile fashion. Full sterile technique was used, including ca p, mask, sterile gloves and gown and a large sterile sheet. Hand hygiene and 2% chlorhexidine and/or betadine/alcohol prep was utilized per protocol for cutaneous antisepsis. The skin and subcutaneous tissues were infiltrated with local anesthetic solution. With fluoroscopic guidance antegrade pyelo gram was performed. The existing nephrostomy tube was accessed using sterile technique. Injection of contrast demonstrate d the tube to have pulled back into the renal cortex. There was still a track visible down into the c ollecting system. A 0.035 angle Glidewire was advanced through the tract. A single and whole glide ca theter was advanced over this. This was eventually manipulated into a dilated collecting system. Ther e was considerable hemorrhagic urine which was aspirated from this. There was clot within the renal c alyces. A new 10 [place] of ostomy tube was advanced over the 0.035 angle Glidewire and coiled within the sondra ecting system without difficulty. Position within the collecting system was confirmed. Conscious sedation was performed with the prescribed dosages and duration as above in the presence of an independent trained radiology nurse to assist in the monitoring of the patient. EKG and oximetry remained stable throughout the procedure. The patient tolerated the procedure well and there were n o complications. The patient was sent to post anesthesia recovery in stable condition. 1. Uncomplicated nephrostomy tube exchange as above. The tube was upsized to 10 [place]. 2. The old tube had pulled back into the renal cortex. There is considerable hemorrhage within the c ollecting system. Electronically signed by: Evangelist Frost MD 09/09/2017 5:00 PM EDT
[2017-09-09] MEDS: Rivaroxaban 20 MG Tablet PO SCH (17:39)
[2017-09-10 04:16] VITALS: RESP 18
[2017-09-10] MEDS: oxyCODONE/Acetaminophen 10/325 Tablet PO PRN ×2 (04:37→13:18)
[2017-09-10] MEDS: ALPRAZolam 0.25 MG Tablet PO PRN ×2 (05:36→12:13)
[2017-09-10 09:07] VITALS: O2SAT 100
[2017-09-10] MEDS: dilTIAZem 30 MG Tablet PO SCH ×2 (09:49→13:18)
[2017-09-10] MEDS: Pantoprazole Inj 40 MG Vial IV.PUSH SCH (09:50)
[2017-09-10] MEDS: Rivaroxaban 20 MG Tablet PO SCH (09:50)
[2017-09-10] MEDS: Ferrous Sulfate 325 MG Tablet PO SCH (09:50)
[2017-09-10] MEDS: Metoprolol Tartrate 50 MG Tablet PO SCH ×2 (09:50→14:37)
[2017-09-10] MEDS: Polyethylene Glycol 3350 17 GM Packet PO SCH (09:53)
[2017-09-10] MEDS: Methylnaltrexone Inj 12 MG/0.6 ML Vial SQ SCH (09:53)
--- NOTE | 2017-09-10 10:22 | P.PNFP ---
Subjective Interval history: Patient seen and examined today. Reports she is feeling well , not feeling palpitations. Denies nausea, vomiting, fever, chills abdominal pain, chest pain, lightheadedness, dizziness. No other complaints at this time. <KayleighKarri - 09/10/17 10:22> Results - Labs Result diagrams: 09/08/17 10:55 09/09/17 09:20 <Rich Edgar 09/10/17 17:51> Abnormal lab results 09/09/17 Range/Units 09:20 Sodium 135 L (136-145) meq/L BMP 09/09/17 09:20 Sodium 135 L Potassium 3.8 Chloride 100 Carbon Dioxide 26.2 BUN 9 Creatinine 0.92 Calcium 8.9 <Triston Victor 09/10/17 10:22> - Imaging Impressions Ureteral Stent Placement 09/02/17 00:00 CONCLUSION: <Triston Victor 09/10/17 10:22> Physical Exam Vital signs: Vital Signs 09/09/17 20:00 09/09/17 23:37 09/10/17 00:00 Temperature 97.7 F 98.4 F Pulse Rate 124 H 118 H 118 H Respiratory Rate 20 20 Blood Pressure 121/82 117/78 Pulse Oximetry 99 09/10/17 04:00 09/10/17 04:15 09/10/17 08:00 Temperature 98.4 F 97.3 F L Pulse Rate 119 H 107 H 105 H Respiratory Rate 18 18 Blood Pressure 101/61 147/80 H Pulse Oximetry 96 100 09/10/17 12:00 09/10/17 12:02 Temperature 97.6 F Pulse Rate 126 H 122 H Respiratory Rate 18 Blood Pressure 103/68 Pulse Oximetry 100 Intake & Output 09/09/17 09/10/17 09/10/17 18:59 06:59 18:59 Intake Total 400 / 400 Output Total 700 / 700 Balance -700 / -700 400 / 400 Weight 91.6 kg Intake: Oral 400 / 400 Output: Wound Drainage 700 / 700 right nephrostomy tube 700 / 700 Other: # Voids 3 3 Date of Last Bowel Movement 09/08/17 09/09/17 09/10/17 # Bowel Movements 1 <Rich Edgar 09/10/17 17:51> Vital Signs 09/09/17 12:00 09/09/17 15:45 09/09/17 16:00 Temperature 97.9 F 98.4 F Pulse Rate 121 H 102 H 122 H Respiratory Rate 14 14 Blood Pressure 121/82 119/86 Pulse Oximetry 98 99 09/09/17 20:00 09/09/17 23:37 09/10/17 00:00 Temperature 97.7 F 98.4 F Pulse Rate 124 H 118 H 118 H Respiratory Rate 20 20 Blood Pressure 121/82 117/78 Pulse Oximetry 99 09/10/17 04:00 09/10/17 04:15 09/10/17 08:00 Temperature 98.4 F 97.3 F L Pulse Rate 119 H 107 H 110 H Respiratory Rate 18 18 Blood Pressure 101/61 147/80 H Pulse Oximetry 96 100 Intake & Output 09/09/17 09/10/17 09/10/17 18:59 06:59 18:59 Intake Total 400 / 400 Output Total 700 / 700 Balance -700 / -700 400 / 400 Weight 91.6 kg Intake: Oral 400 / 400 Output: Wound Drainage 700 / 700 right nephrostomy tube 700 / 700 Other: # Voids 3 3 Date of Last Bowel Movement 09/08/17 09/09/17 # Bowel Movements 1 <Triston Victor - 09/10/17 10:22> Narrative: GENERAL: Laying in bed, no acute distress SKIN: Warm and dry. Right nephrostomy tube in place, dressing clean, dry, intact. Nephrostomy bag with dark yellow urine, improved HEAD: Atraumatic. Normocephalic. EYES: Pupils equal and round. No scleral icterus. No injection or drainage. ENT: No nasal bleeding or discharge. Mucous membranes pink and moist. NECK: Trachea midline. No JVD. CARDIOVASCULAR: Elevated rate, abnormal rhythm RESPIRATORY: No accessory muscle use. Clear to auscultation. Breath sounds equal bilaterally. GASTROINTESTINAL: Abdomen soft, non-tender, nondistended. Hepatic and splenic margins not palpable. MUSCULOSKELETAL: Extremities without clubbing, cyanosis. No obvious deformities. NEUROLOGICAL: Awake and alert. No obvious cranial nerve deficits. Motor grossly within normal limits. Normal speech. <Triston Victor - 09/10/17 10:22> - Urinary Catheter Management Indwelling Urethral Catheter Cath placed during this visit: no <Rich Edgar - 09/10/17 17:51> yes <Triston Victor - 09/10/17 10:22> Reason for continuing: Chronic Urinary Retention <Triston Victor - 09/10/17 10:22> Insertion date: 08/31/17 <Triston Victor - 09/10/17 10:22> Insertion time: 11:00 <Triston Victor - 09/10/17 10:22> Assessment and Plan - Assessment (1) Ureteral obstruction, right Code(s): N13.5 - Crossing vessel and stricture of ureter without hydronephrosis Status: Acute (2) Chronic pain Code(s): G89.29 - Other chronic pain Status: Acute (3) GERD (gastroesophageal reflux disease) Code(s): K21.9 - Gastro-esophageal reflux disease without esophagitis Status: Acute (4) Obstructive sleep apnea on CPAP Code(s): G47.33 - Obstructive sleep apnea (adult) (pediatric); Z99.89 - Dependence on other enabling machines and devices Status: Chronic (5) Hypertension Code(s): I10 - Essential (primary) hypertension Status: Chronic (6) Atrial fibrillation Code(s): I48.91 - Unspecified atrial fibrillation Status: Chronic <Rich Edgar - 09/10/17 17:51> (1) Ureteral obstruction, right Code(s): N13.5 - Crossing vessel and stricture of ureter without hydronephrosis Status: Acute Plan: Right nephrostomy placement on 08/26/17 by IR. Presented to the ED with complaints of worsening right-sided abdominal and back pain associated with nausea and increased hematuria. Hematuria improved. - Monitor nephrostomy drainage, clearing up today - Monitor vitals - Monitor CBC - Pain management: Percocet per pain scale morphine Q3h for breakthrough pain discontinued today. - PPI 40mg BID -monitor I/Os -To be assessed and followed up outpatient with Dr. Minaya, keeping nephrostomy tube for now (2) Anemia Code(s): D64.9 - Anemia, unspecified Status: Resolved Plan: H\H currently uptrending. -Transfuse if hemoglobin falls below 7 -Continue with Protonix 40mg IV BID -Consider Gi consult if patient begins to have drop in H&H probably due to loss of blood from kidney (3) Atrial fibrillation Code(s): I48.91 - Unspecified atrial fibrillation Status: Chronic Plan: history of atrial fibrillation on Xarelto 50 mg twice daily. Patient with tachycardia overnight. Heart rate in the low 100s -Xarelto restarted 09/09, no signs of significant bleeding at this time - Patient placed on telemetry -Metoprolol tartrate 50 mg 3 times daily -Diltiazem 30 mg 4 times daily during this hospital stay, currently at 60 mg 4 times daily -Can consider adding digoxin for additional rate control (4) Hypertension Code(s): I10 - Essential (primary) hypertension Status: Chronic Plan: blood pressure stable - Continue to monitor (5) Sleep apnea Code(s): G47.30 - Sleep apnea, unspecified Status: Chronic Plan: Patient with history of sleep apnea. She uses CPAP at night. c/w CPAP (6) Arthritis Code(s): M19.90 - Unspecified osteoarthritis, unspecified site Status: Acute Plan: Patient reports she uses oxycodone 10 for her arthritic pain control as an outpt Patient was currently on pain scale for abdominal pain (7) Anxiety Code(s): F41.9 - Anxiety disorder, unspecified Status: Acute Plan: Continue with home medications (8) GERD (gastroesophageal reflux disease) Code(s): K21.9 - Gastro-esophageal reflux disease without esophagitis Status: Acute Plan: Patient placed on Protonix 40 mg twice daily (9) Nutrition, metabolism, and development symptoms Code(s): R63.8 - Other symptoms and signs concerning food and fluid intake Status: Acute Plan: Fluids: Tolerating PO Electrolytes: Replete as needed Nutrition: PO DVT prophylaxis: SCDs GI ppx: protonix BID <Triston Victor - 09/10/17 10:17> - Attending Attestation Patient examined independently and case discussed with resident physicians I have read the above note and agree with the assessment/plan as discussed with me I was involved in all medical decision making for this patient Rich Edgar MD <Rich Edgar - 09/10/17 17:51> <Triston Victor Last Filed: 09/10/17 10:17> (2) Anemia Qualifiers: Anemia type: iron 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) (4) Hypertension Qualifiers: Hypertension type: essential hypertension Qualified Code(s): I10 - Essential (primary) hypertension (5) Sleep apnea Qualifiers: Sleep apnea type: obstructive Qualified Code(s): G47.33 - Obstructive sleep apnea (adult) (pediatric) (8) GERD (gastroesophageal reflux disease) Qualifiers: Esophagitis presence: esophagitis presence not specified Qualified Code(s): K21.9 - Gastro-esophageal reflux disease without esophagitis <Rich Edgar - Last Filed: 09/10/17 17:51> (3) GERD (gastroesophageal reflux disease) Qualifiers: (5) Hypertension Qualifiers: Hypertension type: essential hypertension Qualified Code(s): I10 - Essential (primary) hypertension <Triston Victor - Last Filed: 09/10/17 10:17> (2) Anemia Qualifiers: Anemia type: iron 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) (4) Hypertension Qualifiers: Hypertension type: essential hypertension Qualified Code(s): I10 - Essential (primary) hypertension (5) Sleep apnea Qualifiers: Sleep apnea type: obstructive Qualified Code(s): G47.33 - Obstructive sleep apnea (adult) (pediatric) (8) GERD (gastroesophageal reflux disease) Qualifiers: Esophagitis presence: esophagitis presence not specified Qualified Code(s): K21.9 - Gastro-esophageal reflux disease without esophagitis <Rich Edgar - Last Filed: 09/10/17 17:51> (3) GERD (gastroesophageal reflux disease) Qualifiers: (5) Hypertension Qualifiers: Hypertension type: essential hypertension Qualified Code(s): I10 - Essential (primary) hypertension
--- NOTE | 2017-09-10 10:59 | P.DS ---
Date of admission: 08/31/17 11:59 Primary care physician: Sukhwinder Kruger MD Brief History from admission: Ms Cantor is a 82-year-old female with past medical history of A. 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 Patient reports that pain has been constant since urology procedure however is has gotten progressively worse. She describes pain as sharp initially reaching 10/10. She took oxycodone without any significant relief. Patient also reports worsening of hematuria from nephrostomy bag, blood became darker in color although no blood clots were noted in the urine. Patient reports that last bowel movement was 4 days ago. Endorses chills, nausea, dizziness, increase urinary frequency and weakness. Denies fever, dysuria, foul smelling urine, SOB, CP, palpitations, vomiting, blood in stool. At baseline patient ambulates with a cane. Patient was scheduled to follow-up with her urologist for reevaluation of nephrostomy tube placement because she was told the procedure was not successful. On admission she was found to have both problems with her kidney as well as an ileus. This morning she has bile draining from her NG tube. She is still significant pain though she says that the IV morphine is helping her. DS: Diagnosis - Discharge Diagnosis (1) Ureteral obstruction, right Status: Acute (2) Chronic pain Status: Acute (3) GERD (gastroesophageal reflux disease) Status: Acute (4) Obstructive sleep apnea on CPAP Status: Acute (5) Hypertension Status: Chronic (6) Atrial fibrillation Status: Chronic DS: Summary Hospital Course: Ms. Cantor was admitted on 08/31 and found to have an ileus and a nephric hematoma with hematuria. H/H was 10/30. A benítez and NG were placed. Nephrostomy tube was replaced by IR. Patient was placed on Relistor and MiraLAX. NG tube removed on 09/05. Patient began eating and having bowel movements. Hematuria resolved. Patient began to be tachycardiac as high as the 130s 140s. Metoprolol increased to 50, 3 times daily. Patient remained tachycardic. Diltiazem 60, 4 times daily was added. Patient heart rate stabilized in the low 100s 110s. Patient feeling well and ready to go to [facility]. - Time Spent with Patient Total time spent providing and/or coordinating discharge services: Exam Vital signs: Vital Signs 09/09/17 12:00 09/09/17 15:45 09/09/17 16:00 Temperature 97.9 F 98.4 F Pulse Rate 121 H 102 H 122 H Respiratory Rate 14 14 Blood Pressure 121/82 119/86 Pulse Oximetry 98 99 09/09/17 20:00 09/09/17 23:37 09/10/17 00:00 Temperature 97.7 F 98.4 F Pulse Rate 124 H 118 H 118 H Respiratory Rate 20 20 Blood Pressure 121/82 117/78 Pulse Oximetry 99 09/10/17 04:00 09/10/17 04:15 09/10/17 08:00 Temperature 98.4 F 97.3 F L Pulse Rate 119 H 107 H 105 H Respiratory Rate 18 18 Blood Pressure 101/61 147/80 H Pulse Oximetry 96 100 Intake & Output 09/09/17 09/10/17 09/10/17 18:59 06:59 18:59 Intake Total 400 / 400 Output Total 700 / 700 Balance -700 / -700 400 / 400 Weight 91.6 kg Intake: Oral 400 / 400 Output: Wound Drainage 700 / 700 right nephrostomy tube 700 / 700 Other: # Voids 3 3 Date of Last Bowel Movement 09/08/17 09/09/17 # Bowel Movements 1 Results Procedures completed during hospitalization: R nephrostomy tube replaced 09/02/2017 - Impressions ITS Impressions Abdomen/Pelvis CT 08/31/17 07:20 CONCLUSION: 1. 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 2. There is nephrostomy tip is in the right LX towards the anterior portion. 3. Stable left adrenal adenoma. 4. Significant dilatation of the common bile duct and mild biliary ductal dilatation left hepatic lobe present on the prior study from 2014, however, bile duct is more dilated since that time. Etiology is not evident. Chest X-Ray 09/02/17 00:00 CONCLUSION: 1. No focal infiltrates seen. 2. Gastric tube in good position. Ureteral Stent Placement 09/02/17 00:00 CONCLUSION: Abdomen X-Ray 09/05/17 00:00 CONCLUSION: No dilated loops of small or large bowel. Discharge Plan - Discharge Disposition Patient Disposition: [facility] Inpatient - Discharge Condition Condition: Fair - Discharge Order Discharge Orders: Discharge Order (Routine); Ordered 09/10/17 Ordered By: Emmy Noe - Discharge Details Anticipated Discharge Date: 09/10/17 - Physicians Team Primary Care Provider: Sukhwinder Kruger Attending Provider: Rich Edgar Other Providers: Martin Minaya MD ; Justin Johnson MD ; [facility]
[2017-09-10 12:13] VITALS: BP 103/68; TEMP 97.6
[2017-09-10 15:48] VITALS: PULSE 122
== END 2017-09-10 14:42 ==
LOC: NEPC 07:02 → NEDA 11:59 → N04 19:23 → NEDA 19:39
PROVIDERS: ADMIT Family Medicine; ATTEND Family Medicine